=== PATIENT | male | born 1970 | race Caucasian/White ===

== ENCOUNTER 2018-11-17 16:35 | Inpatient (IN) | payer OTHER ==
[2018-11-17 19:55] VITALS: BMI 24.3
--- NOTE | 2018-11-17 20:19 | HP ---
CIWA Score Nausea/Vomitin-No Nausea/No Vomiting Muscle Tremors: 1-None Visible, but [place] Anxiety: 4-Mod. Anxious/Guarded Agitation: 4-Moderately Restless Paroxysmal Sweats: 4-Forehead w/Sweat Beads Orientation: 0-Oriented Tacttile Disturbances: 0-None Auditory Disturbances: 0-None Visual Disturbances: 2-Mild Sensitivity Headache: 2-Mild CIWA-Ar Total Score: 17 - Admission Criteria OASAS Guidelines: Admission for Medically Managed Detox: Requires at least one of the followin. CIWA greater than 12 2. Seizures within the past 24 hours 3. Delirium tremens within the past 24 hours 4. Hallucinations within the past 24 hours 5. Acute intervention needed for co occurring medical disorder 6. Acute intervention needed for co occurring psychiatric disorder 7. Severe withdrawal that cannot be handled at a lower level of care (continued vomiting, continued diarrhea, abnormal vital signs) requiring intravenous medication and/or fluids 8. Patient presents the following: CIWA greater than 12 Admission Criteria Met: Admission criteria met Admission ROS [facility] Chief Complaint: C/O WITHDRAWAL SX'S Allergies/Adverse Reactions: Allergies Allergy/AdvReac Type Severity Reaction Status Date / Time No Known Allergies Allergy Verified 11/17/18 20:14 History of Present Illness: 48 Y.O. MALE WITH ALCOHOLISM HERE FOR DETOX. HE PRESENTS WITH C/O WITHDRAWAL SX' S. CIWA 17. THIS IS HIS FIRST ADMISSION HERE. KNOWN TO PREVIOUS DETOX. STATES LAST ATTEMT WAS 2 WEEKS AGO BUT AMA AFTER 2 DAYS. DRINKS ALCOHOL DAILY. LAST USE TODAY. DENIES HX/O SEIZURES, BLACKOUTS. DOMICILED, UNEMPLOYED, DENIES LEGALS Exam Limitations: No Limitations - Ebola screening Have you traveled outside of the country in the last 21 days: No (N) Have you had contact with anyone from an Ebola affected area: No Do you have a fever: No - Review of Systems Constitutional: Chills, Loss of Appetite, Malaise, Night Sweats, Unintentional Wgt. Loss EENT: reports: Dental Problems (MISSING TEETH) Respiratory: reports: No Symptoms reported Cardiac: reports: No Symptoms Reported GI: reports: Poor Appetite, Poor Fluid Intake : reports: Other (HESITANCY) Musculoskeletal: reports: Back Pain, Joint Pain, Neck Pain Integumentary: reports: Other (SUPERFICIAL LACERATIONS TO HAND FROM USING RAZOR BLADES) Neuro: reports: Headache, Tremors Endocrine: reports: No Symptoms Reported Hematology: reports: No Symptoms Reported Psychiatric: reports: Orientated x3, Agitated, Anxious Other Systems: Reviewed and Negative Patient History - Patient Medical History Hx Anemia: No Hx Asthma: No Hx Chronic Obstructive Pulmonary Disease (COPD): No Hx Cancer: No Hx Cardiac Disorders: No Hx Congestive Heart Failure: No Hx Hypertension: Yes Hx Hypercholesterolemia: Yes Hx Pacemaker: No HX Cerebrovascular Accident: No Hx Seizures: No Hx Dementia: No Hx Diabetes: No Hx Gastrointestinal Disorders: No Hx Liver Disease: No Hx Genitourinary Disorders: No Hx Sexually Transmitted Disorders: No Hx Renal Disease (ESRD): No Hx Thyroid Disease: No Hx Human Immunodeficiency Virus (HIV): No Hx Hepatitis C: No Hx Depression: No Hx Suicide Attempt: No Hx Bipolar Disorder: No Hx Schizophrenia: No Other Medical History: DENIES - Patient Surgical History Past Surgical History: No - PPD History Previous Implant?: Yes Documented Results: Negative w/o proof Implanted On Prior [facility] Admission?: No PPD to be Administered?: Yes - Smoking Cessation Smoking history: Current every day smoker Have you smoked in the past 12 months: Yes Aproximately how many cigarettes per day: 20 Cigars Per Day: 0 Hx Chewing Tobacco Use: No Initiated information on smoking cessation: Yes 'Breaking Loose' booklet given: 11/17/18 - Substance & Tx. History Hx Alcohol Use: Yes Hx Substance Use: Yes Substance Use Type: Alcohol, Cocaine, Marijuana Hx Substance Use Treatment: Yes ([facility]) - Substances abused Alcohol Substance route: Oral Frequency: Daily Amount used: 1-2 PINT VODKA Age of first use: 33 Date of last use: 11/17/18 Cocaine Other (specify): SNIFF Frequency: 1-3 times last 30 days Amount used: $1000 Age of first use: 36 Date of last use: 11/16/18 Marijuana/Hashish Substance route: Smoking Frequency: Daily Amount used: 1 BLUNT Age of first use: 10 Date of last use: 11/16/18 Family Disease History - Family Disease History Family Disease History: CA: Mother (LUKEMIA- ), Other: Father ( MVA ) Admission Physical Exam BHS - Vital Signs Vital Signs: Vital Signs - 24 hr 11/17/18 11/17/18 19:46 20:09 Temperature 97.1 F L 97.1 F L Pulse Rate 73 73 Respiratory 18 18 Rate Blood Pressure 112/76 112/76 - Physical General Appearance: Yes: Mild Distress, Alcohol on Breath, Tremorous (FELT), Irritable, Anxious HEENTM: Yes: EOMI, Normocephalic, Normal Voice, RIGO, Pharynx Normal Respiratory: Yes: Chest Non-Tender, Lungs Clear, Normal Breath Sounds, No Respiratory Distress, No Accessory Muscle Use Neck: Yes: No masses,lesions,Nodules, Supple, Trachea in good position Breast: Yes: Breast Exam Deferred Cardiology: Yes: Regular Rhythm, Regular Rate, S1, S2 Abdominal: Yes: Non Tender, Flat, Increased Bowel Sounds Genitourinary: Yes: Within Normal Limits Back: Yes: Normal Inspection Musculoskeletal: Yes: full range of Motion, Gait Steady Extremities: Yes: Normal Capillary Refill, Normal Range of Motion, Non-Tender, Tremors (FELT) Neurological: Yes: Fully Oriented, Alert, Motor Strength 5/5, Depressed Affect ( DENIES SI/HI) Integumentary: Yes: Dry, Warm, Rash (TO BOTH ANTECUBITAL), Other (FLUSHED) Lymphatic: Yes: Within Normal Limits - Diagnostic (1) Alcohol dependence with uncomplicated withdrawal Current Visit: Yes Status: Acute (2) Cannabis abuse, uncomplicated Current Visit: Yes Status: Acute (3) Cocaine dependence, uncomplicated Current Visit: Yes Status: Acute (4) HTN (hypertension) Current Visit: Yes Status: Chronic Qualifiers: Hypertension type: essential hypertension Qualified Code(s): I10 - Essential (primary) hypertension (5) HLD (hyperlipidemia) Current Visit: Yes Status: Chronic Qualifiers: Hyperlipidemia type: unspecified Qualified Code(s): E78.5 - Hyperlipidemia , unspecified (6) At risk for dehydration due to poor fluid intake Current Visit: Yes Status: Acute (7) Substance induced mood disorder Current Visit: Yes Status: Acute Cleared for Admission S - Detox or Rehab [facility] Level of Care: Medically Managed Detox Regimen/Protocol: Librium Claeared for Rehab Admission: No Breathalyzer - Breathalyzer Breathalyzer: 0.005 Urine Drug Screen - Test Device Lot number: [id number] Expiration date: 07/18/20 - Control Is test valid?: Yes - Results Drug screen NEGATIVE: No Urine drug screen results: THC-Marijuana, HEIDY-Cocaine, MET-Methamphetamine, AMP- Amphetamines, BAR-Barbiturates, BZO-Benzodiazepines Inpatient Rehab Admission - Rehab Decision to Admit Inpatient rehab admission?: No
[2018-11-17] MEDS ORDERED: MAG HYDROX/AL HYDROX/SIMETH 30 ML UNIT-DOSE CUP PO PRN (20:39)
[2018-11-17] MEDS ORDERED: P-EPHED 60MG/TRIPROLIDI 2.5MG TABLET PO PRN (20:39)
[2018-11-17] MEDS ORDERED: BISMUTH SUBSALICYLATE 524 MG/30 ML UD PO PRN (20:39)
[2018-11-17] MEDS ORDERED: METHOCARBAMOL 500 MG TABLET PO PRN (20:39)
[2018-11-17] MEDS ORDERED: IBUPROFEN 400 MG TABLET (FP) PO PRN (20:39)
[2018-11-17] MEDS ORDERED: MELATONIN 5 MG TABLETS PO PRN (20:39)
[2018-11-17] MEDS ORDERED: ACETAMINOPHEN 325 MG TABLET (FP) PO PRN ×2 (20:39)
[2018-11-17] MEDS ORDERED: chlordiazePOXIDE HCL 25 MG CAPSULE PO PRN (20:39)
[2018-11-17] MEDS ORDERED: hydrOXYzine PAMOATE 25 MG CAPSULE (FP) PO PRN (20:39)
[2018-11-17] MEDS ORDERED: MENTHOL/PHENOL 1 EACH UD MM PRN (20:39)
[2018-11-17] MEDS ORDERED: MAGNESIUM CITRATE 300 ML BOTTLE PO PRN (20:39)
[2018-11-17] MEDS ORDERED: ONDANSETRON *ODT* 4 MG TABLET SL PRN (20:39)
[2018-11-17] MEDS ORDERED: DICYCLOMINE HCL 10 MG CAPSULE PO PRN (20:39)
[2018-11-17] MEDS ORDERED: guaiFENesin 200 MG/10 ML 10 ML UNIT-DOSE CUPS PO PRN (20:39)
[2018-11-17] MEDS ORDERED: MAGNESIUM HYDROX 2400MG/30ML ORAL SUSPENSION 30 ML CUP PO PRN (20:39)
[2018-11-17] MEDS ORDERED: NICOTINE POLACRILEX 4 MG GUM BUC PRN (20:39)
[2018-11-17] MEDS: chlordiazePOXIDE HCL 25 MG CAPSULE PO SCH (23:28)
[2018-11-17] MEDS: THIAMINE HCL 100 MG TABLET (FP) PO SCH (23:28)
[2018-11-18] MEDS: chlordiazePOXIDE HCL 25 MG CAPSULE PO SCH ×4 (05:38→22:31)
[2018-11-18] MEDS: PRENATAL VITAMINS W/ FOLIC ACID TABLET (FP) PO SCH (10:17)
[2018-11-18 10:28] LABS: HEMATOCRIT 38.9 % (35.4-49); HEMOGLOBIN 12.9 GM/dL (11.7-16.9); MCH 29.5 pg (25.7-33.7); MCHC 33.3 g/dl (32.0-35.9); MEAN CELL VOLUME 88.7 fl (80-96); PLATELET COUNT 260 K/MM3 (134-434); RBC 4.38 M/mm3 (4.00-5.60); RDW 15.1 % (11.9-15.9); WHITE BLOOD COUNT 6.5 K/mm3 (4.0-10.0)
[2018-11-18 10:59] LABS: ALBUMIN 2.8 g/dl (3.4-5.0); BILIRUBIN,TOTAL 0.9 mg/dL (0.2-1); BLOOD UREA NITROGEN 16.4 mg/dL (7-18); CALCIUM 8.2 mg/dL (8.5-10.1); CREATININE 0.8 mg/dL (0.55-1.3); POTASSIUM 4.2 mmol/L (3.5-5.1)
--- NOTE | 2018-11-18 15:52 | PN ---
S CIWA - CIWA Score Nausea/Vomitin-No Nausea/No Vomiting Muscle Tremors: 3 Anxiety: 2 Agitation: 1-Slight > Activity Paroxysmal Sweats: 3 Orientation: 0-Oriented Tacttile Disturbances: 0-None Auditory Disturbances: 0-None Visual Disturbances: 0-None Headache: 2-Mild CIWA-Ar Total Score: 11 BHS Progress Note (SOAP) Subjective: Tremors, Sweating, Headache. Objective: PATIENT A & O X 3, OBSERVED AMBULATING ON UNIT UNASSISTED. IN NO ACUTE DISTRESS. 11/18/18 15:50 Vital Signs Temperature 97.2 F L 11/18/18 13:27 Pulse Rate 63 11/18/18 13:27 Respiratory Rate 18 11/18/18 13:27 Blood Pressure 126/80 11/18/18 13:27 O2 Sat by Pulse Oximetry (%) Laboratory Tests 11/18/18 11/18/18 11/18/18 07:00 07:00 07:00 WBC 6.5 RBC 4.38 Hgb 12.9 Hct 38.9 MCV 88.7 MCH 29.5 MCHC 33.3 RDW 15.1 Plt Count 260 MPV 8.0 Sodium 139 Potassium 4.2 Chloride 108 H Carbon Dioxide 27 Anion Gap 4 L BUN 16.4 Creatinine 0.8 Est GFR (CKD-EPI)AfAm 120.72 Est GFR (CKD-EPI)NonAf 104.16 Random Glucose 77 Calcium 8.2 L Total Bilirubin 0.9 AST 27 ALT 25 Alkaline Phosphatase 67 Total Protein 6.0 L Albumin 2.8 L RPR Titer Nonreactive LABS NOTED. RESULT OF TB / QFT TEST PENDING. 11/18/18 15:51 Assessment: 11/18/18 15:50 WITHDRAWAL SYMPTOMS. Plan: CONTINUE DETOX.
--- NOTE | 2018-11-18 18:27 | PN ---
BHS Progress Note Note: pt requesting tinactin cream for itchy feet- ordered
--- NOTE | 2018-11-18 18:41 | CONSULT ---
[facility] Psychiatric Consult - Data Date of interview: 11/18/18 Admission source: [facility] Identifying data: Approached patient at bedside for psychiatric interview. Mr Vigil is found asleep. Resting comfortably. Examination deferred. Staff is made aware.
[2018-11-18] MEDS: THIAMINE HCL 100 MG TABLET (FP) PO SCH (22:31)
[2018-11-18] MEDS: TOLNAFTATE 1% CREAM 15 GM TUBE TP SCH (22:31)
[2018-11-19] MEDS: chlordiazePOXIDE HCL 25 MG CAPSULE PO SCH ×3 (05:44→17:14)
[2018-11-19] MEDS ORDERED: HYDROCORTISONE 0.5% TOPICAL OINTMENT TUBE TP SCH (10:00)
--- NOTE | 2018-11-19 10:04 | PN ---
[facility] CIWA - CIWA Score Nausea/Vomitin Muscle Tremors: 2 Anxiety: 2 Agitation: 2 Paroxysmal Sweats: No Perspiration Orientation: 0-Oriented Tacttile Disturbances: 0-None Auditory Disturbances: 0-None Visual Disturbances: 0-None Headache: 2-Mild CIWA-Ar Total Score: 10 BHS Progress Note (SOAP) Subjective: alert,irritable,anxious,interrupted sleep,tremor,rash of right face Objective: 11/19/18 10:03 Vital Signs Temperature 98.5 F 11/19/18 09:16 Pulse Rate 74 11/19/18 09:16 Respiratory Rate 20 11/19/18 09:16 Blood Pressure 116/82 11/19/18 09:16 O2 Sat by Pulse Oximetry (%) Assessment: 11/19/18 10:03 withdrawal symptom Plan: continue detox
[2018-11-19] MEDS: PRENATAL VITAMINS W/ FOLIC ACID TABLET (FP) PO SCH (10:21)
[2018-11-19] MEDS: TOLNAFTATE 1% CREAM 15 GM TUBE TP SCH (10:22)
[2018-11-19] MEDS ORDERED: HYDROCORTISONE 0.5% TOPICAL CREAM 30 GM TUBE TP SCH (12:30)
--- NOTE | 2018-11-19 13:48 | EKG ---
Test Reason : Blood Pressure : / mmHG Vent. Rate : 068 BPM Atrial Rate : 068 BPM P-R Int : 132 ms QRS Dur : 092 ms QT Int : 420 ms P-R-T Axes : 053 045 040 degrees QTc Int : 446 ms SINUS RHYTHM WITH BLOCKED PREMATURE ATRIAL COMPLEXES OTHERWISE NORMAL ECG NO PREVIOUS ECGS AVAILABLE Confirmed by MD ALBERTINA, SKIP ([id number]) on 11/19/2018 1:47:45 PM Referred By: Confirmed By:SKIP ENG MD
[2018-11-19 15:30] LABS: EPI CELLS 0.6 /HPF (0-5/HPF); HYALINE CASTS 1 /lpf (0-8); PH,URINE 5.5 (5.0-8.0); URINE APPEARANCE CLEAR; URINE BACTERIA 2.2 /hpf (NEGATIVE); URINE BILIRUBIN NEGATIVE (NEGATIVE); URINE COLOR YELLOW; URINE GLUCOSE (UA) NEGATIVE (NEGATIVE); URINE KETONE NEGATIVE (NEGATIVE); URINE LEUK ESTERASE TRACE (NEGATIVE); URINE NITRITE NEGATIVE (NEGATIVE); URINE PROTEIN NEGATIVE (NEGATIVE); URINE RBC 1 /hpf (0-4); URINE UROBILINOGEN 0.2 mg/dL (0.2-1.0); URINE WBC 3 /hpf (0-5)
[2018-11-19 17:19] VITALS: BP 110/65; PULSE 59; TEMP 96.9
[2018-11-19] MEDS ORDERED: chlordiazePOXIDE HCL 10 MG CAPSULE PO SCH (23:00)
[2018-11-19] MEDS ORDERED: chlordiazePOXIDE HCL 10 MG CAPSULE PO PRN (23:00)
[2018-11-20] MEDS ORDERED: chlordiazePOXIDE HCL 10 MG CAPSULE PO SCH (23:00)
== END 2018-11-19 20:15 | disposition home or self-care (01) | DRG 774 ==
LOC: YASAS 16:35 → Y3N 19:59
PROVIDERS: ADMIT Surgery; ATTEND Surgery
PROC: HZ2ZZZZ Detoxification Services for Substance Abuse Treatment (ICD-10-PCS; principal; 2018-11-17)
DX: F10.230 Alcohol dependence with withdrawal, uncomplicated (principal); F14.20 Cocaine dependence, uncomplicated; F12.20 Cannabis dependence, uncomplicated; F19.24 Other psychoactive substance dependence with psychoactive substance-induced mood disorder; I10 Essential (primary) hypertension; E78.00 Pure hypercholesterolemia, unspecified; Z91.89 Other specified personal risk factors, not elsewhere classified
CPT/HCPCS: 36415; 80053; 81003; 85027; 86480; 86593; 93005; 93010

== ENCOUNTER 2019-04-11 21:45 | Inpatient (IN) | payer OTHER ==
[2019-04-11 21:48] VITALS: BMI 24.6
--- NOTE | 2019-04-12 00:25 | HP ---
CIWA Score Nausea/Vomitin-No Nausea/No Vomiting Muscle Tremors: 1-None Visible, but [place] Anxiety: 3 Agitation: 3 Paroxysmal Sweats: 3 Orientation: 1-Uncertain about Date Tacttile Disturbances: 3-Moderate Itch/Numb/Burn Auditory Disturbances: 0-None Visual Disturbances: 0-None Headache: 3-Moderate CIWA-Ar Total Score: 17 - Admission Criteria OASAS Guidelines: Admission for Medically Managed Detox: Requires at least one of the followin. CIWA greater than 12 2. Seizures within the past 24 hours 3. Delirium tremens within the past 24 hours 4. Hallucinations within the past 24 hours 5. Acute intervention needed for co occurring medical disorder 6. Acute intervention needed for co occurring psychiatric disorder 7. Severe withdrawal that cannot be handled at a lower level of care (continued vomiting, continued diarrhea, abnormal vital signs) requiring intravenous medication and/or fluids 8. Patient presents the following: CIWA greater than 12 Admission Criteria Met: Admission criteria met Admitting History and Physical - Smoking History Smoking history: Current every day smoker Have you smoked in the past 12 months: Yes Aproximately how many cigarettes per day: 20 - Alcohol/Substance Use Hx Alcohol Use: Yes Admission ROS [facility] - [facility] Chief Complaint: seeking detox from etoh Allergies/Adverse Reactions: Allergies Allergy/AdvReac Type Severity Reaction Status Date / Time No Known Allergies Allergy Verified 04/11/19 21:41 History of Present Illness: HERE FOR DETOX SELF REFERRED KNOWN TO PROGRAM LAST HERE 11/2018 REPORTS IMMEDIATE RELAPSE AFTER DC DRUG OF CHOICE ETOH/ THC/HEIDY REPORTS DAILY ETOH INTAKE. 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 DENIES ANY THIS PAST YEAR LIVES WITH FAMILY, EMPLOYED, DENIES LEGALS Exam Limitations: No Limitations - Ebola screening Have you traveled outside of the country in the last 21 days: No Have you had contact with anyone from an Ebola affected area: No Do you have a fever: No - Review of Systems Constitutional: Chills, Loss of Appetite, Night Sweats, Changes in sleep, Unintentional Wgt. Loss EENT: reports: Dental Problems (MISSING TEETH) Respiratory: reports: No Symptoms reported Cardiac: reports: No Symptoms Reported GI: reports: No Symptoms Reported : reports: No Symptoms Reported Musculoskeletal: reports: No Symptoms Reported Integumentary: reports: [place] Neuro: reports: Headache, Tremors Endocrine: reports: No Symptoms Reported Hematology: reports: No Symptoms Reported Psychiatric: reports: Judgement Intact, Orientated x3, Agitated (IRRITABLE), Anxious Other Systems: Reviewed and Negative Patient History - Patient Medical History Hx Anemia: No Hx Asthma: No Hx Chronic Obstructive Pulmonary Disease (COPD): No Hx Cancer: No Hx Cardiac Disorders: No Hx Congestive Heart Failure: No Hx Hypertension: Yes Hx Hypercholesterolemia: Yes Hx Pacemaker: No HX Cerebrovascular Accident: No Hx Seizures: No Hx Dementia: No Hx Diabetes: No Hx Gastrointestinal Disorders: No Hx Liver Disease: No Hx Genitourinary Disorders: No Hx Sexually Transmitted Disorders: No Hx Renal Disease (ESRD): No Hx Thyroid Disease: No Hx Human Immunodeficiency Virus (HIV): No Hx Hepatitis C: No Hx Depression: No Hx Suicide Attempt: No Hx Bipolar Disorder: No Hx Schizophrenia: No Other Medical History: DENIES - Patient Surgical History Past Surgical History: No - PPD History Previous Implant?: Yes Documented Results: Negative w/o proof Implanted On Prior R Admission?: No Date: 11/18/18 Results: NEG TB GOLD PPD to be Administered?: No - Smoking Cessation Smoking history: Current every day smoker Have you smoked in the past 12 months: Yes Aproximately how many cigarettes per day: 20 Cigars Per Day: 0 Hx Chewing Tobacco Use: No Initiated information on smoking cessation: Yes 'Breaking Loose' booklet given: 04/12/19 - Substance & Tx. History Hx Alcohol Use: Yes Hx Substance Use: Yes Substance Use Type: Alcohol, Cocaine, Marijuana Hx Substance Use Treatment: Yes ([facility]) - Substances abused Alcohol Substance route: Oral Frequency: Daily Amount used: 1-2 PINT VODKA Age of first use: 33 Date of last use: 04/10/19 Cocaine Other (specify): SNIFF Substance route: Inhalation Frequency: 1-3 times last 30 days Amount used: 1gram Age of first use: 36 Date of last use: 04/04/19 Marijuana/Hashish Substance route: Smoking Frequency: Daily Amount used: 1 BLUNT Age of first use: 10 Date of last use: 04/09/19 Admission Physical Exam BHS - Vital Signs Vital Signs: Vital Signs - 24 hr 04/11/19 04/11/19 21:44 23:42 Temperature 96.8 F L 96.8 F L Pulse Rate 84 84 Respiratory 16 16 Rate Blood Pressure 144/89 144/89 - Physical General Appearance: Yes: Mild Distress, Tremorous (FELT), Irritable, Anxious HEENTM: Yes: EOMI, Normocephalic, Normal Voice, RIGO, Pharynx Normal Respiratory: Yes: Chest Non-Tender, Lungs Clear, Normal Breath Sounds, No Respiratory Distress, No Accessory Muscle Use Neck: Yes: No masses,lesions,Nodules, Supple, Trachea in good position Breast: Yes: Breasts Symetrical Cardiology: Yes: Regular Rhythm, Regular Rate, S1, S2 Abdominal: Yes: Normal Bowel Sounds, Non Tender, Soft Genitourinary: Yes: Within Normal Limits (NO C/O) Back: Yes: Normal Inspection Musculoskeletal: Yes: full range of Motion, Gait Steady Extremities: Yes: Normal Capillary Refill, Normal Inspection, Non-Tender, Tremors (FELT) Neurological: Yes: Fully Oriented, Alert, Motor Strength 5/5 Integumentary: Yes: Dry, Warm Lymphatic: Yes: Within Normal Limits - Diagnostic (1) Alcohol dependence with uncomplicated withdrawal Current Visit: Yes Status: Acute (2) At risk for dehydration due to poor fluid intake Current Visit: Yes Status: Acute (3) Cannabis abuse, uncomplicated Current Visit: Yes Status: Acute (4) Cocaine dependence, uncomplicated Current Visit: Yes Status: Acute (5) Substance induced mood disorder Current Visit: No Status: Acute (6) HLD (hyperlipidemia) Current Visit: Yes Status: Chronic Qualifiers: Hyperlipidemia type: unspecified Qualified Code(s): E78.5 - Hyperlipidemia , unspecified (7) HTN (hypertension) Current Visit: Yes Status: Chronic Qualifiers: Hypertension type: essential hypertension Qualified Code(s): I10 - Essential (primary) hypertension Cleared for Admission S - Detox or Rehab [facility] Level of Care: Medically Managed (ATIVAN PROTOCOL) Claeared for Rehab Admission: No Breathalyzer - Breathalyzer Breathalyzer: 0 Urine Drug Screen - Test Device Lot number: [id number] Expiration date: 12/18/20 - Control Is test valid?: Yes - Results Drug screen NEGATIVE: No Urine drug screen results: THC-Marijuana, HEIDY-Cocaine, MET-Methamphetamine Inpatient Rehab Admission - Rehab Decision to Admit Inpatient rehab admission?: No
[2019-04-12] MEDS ORDERED: NICOTINE POLACRILEX 2 MG GUM BUC PRN (00:28)
[2019-04-12] MEDS ORDERED: DICYCLOMINE HCL 10 MG CAPSULE PO PRN (00:28)
[2019-04-12] MEDS ORDERED: ONDANSETRON *ODT* 4 MG TABLET SL PRN (00:28)
[2019-04-12] MEDS ORDERED: ACETAMINOPHEN 325 MG TABLET (FP) PO PRN ×2 (00:28)
[2019-04-12] MEDS ORDERED: P-EPHED 60MG/TRIPROLIDI 2.5MG TABLET PO PRN (00:28)
[2019-04-12] MEDS ORDERED: MENTHOL/PHENOL 1 EACH UD MM PRN (00:28)
[2019-04-12] MEDS ORDERED: MELATONIN 5 MG TABLETS PO PRN (00:28)
[2019-04-12] MEDS ORDERED: MAGNESIUM CITRATE 300 ML BOTTLE PO PRN (00:28)
[2019-04-12] MEDS ORDERED: IBUPROFEN 400 MG TABLET (FP) PO PRN (00:28)
[2019-04-12] MEDS ORDERED: METHOCARBAMOL 500 MG TABLET PO PRN (00:28)
[2019-04-12] MEDS ORDERED: MAGNESIUM HYDROX 2400MG/30ML ORAL SUSPENSION 30 ML CUP PO PRN (00:28)
[2019-04-12] MEDS ORDERED: LORazepam 1 MG TABLET PO PRN (00:28)
[2019-04-12] MEDS ORDERED: MAG HYDROX/AL HYDROX/SIMETH 30 ML UNIT-DOSE CUP PO PRN (00:28)
[2019-04-12] MEDS ORDERED: guaiFENesin 200 MG/10 ML 10 ML UNIT-DOSE CUPS PO PRN (00:28)
[2019-04-12] MEDS ORDERED: BACLOFEN 10 MG TABLET (FP) PO PRN (00:28)
[2019-04-12] MEDS ORDERED: BISMUTH SUBSALICYLATE 524 MG/30 ML UD PO PRN (00:28)
[2019-04-12] MEDS ORDERED: hydrOXYzine PAMOATE 25 MG CAPSULE (FP) PO PRN (00:28)
[2019-04-12] MEDS ORDERED: cloNIDine HCL 0.1 MG TABLET PO PRN (00:30)
[2019-04-12] MEDS: LORazepam 2 MG TABLET PO SCH ×4 (05:52→22:05)
[2019-04-12] MEDS: PRENATAL VITAMINS W/ FOLIC ACID TABLET (FP) PO SCH (10:25)
[2019-04-12] MEDS: NICOTINE 21 MG/24 HOURS TOPICAL PATCH TD SCH (10:25)
[2019-04-12 10:56] LABS: ALBUMIN 3.4 g/dl (3.4-5.0); BILIRUBIN,TOTAL 0.4 mg/dL (0.2-1); CALCIUM 8.5 mg/dL (8.5-10.1); CREATININE 0.9 mg/dL (0.55-1.3); TOT PROT 6.8 g/dl (6.4-8.2)
[2019-04-12 11:19] LABS: HEMATOCRIT 41.6 % (35.4-49); HEMOGLOBIN 14.3 GM/dL (11.7-16.9); MCH 31.2 pg (25.7-33.7); MCHC 34.3 g/dl (32.0-35.9); MEAN CELL VOLUME 90.8 fl (80-96); MEAN PLT VOLUME 8.3 fl (7.5-11.1); PLATELET COUNT 223 K/MM3 (134-434); RBC 4.58 M/mm3 (4.00-5.60); RDW 15.6 % (11.9-15.9); WHITE BLOOD COUNT 9.2 K/mm3 (4.0-10.0)
[2019-04-12] MEDS: THIAMINE HCL 100 MG TABLET (FP) PO SCH (22:05)
[2019-04-13] MEDS: LORazepam 1 MG TABLET PO SCH ×4 (05:22→23:42)
--- NOTE | 2019-04-13 09:24 | PN ---
S CIWA - CIWA Score Nausea/Vomitin-Mild Nausea/No Vomiting Muscle Tremors: 4-Moderate,w/Arms Extend Anxiety: 3 Agitation: 2 Paroxysmal Sweats: 2 Orientation: 0-Oriented Tacttile Disturbances: 1-Very Mild Itch/Numbness Auditory Disturbances: 0-None Visual Disturbances: 0-None Headache: 1-Very Mild CIWA-Ar Total Score: 14 BHS Progress Note (SOAP) Subjective: 48 YEARS OLD MALE ADMITTED ON 04/12/19 FOR ALCOHOL WITHDRAWAL SX MANAGEMENT TREATED WITH ATIVAN DETOX REGIMEN ATE BREAKFAST RESTING ON BED FEELING TIRED LIMITED CONVERSATION WITH STAFF Objective: 04/13/19 09:22 Vital Signs Temperature 97 F L 04/13/19 06:13 Pulse Rate 67 04/13/19 06:13 Respiratory Rate 18 04/13/19 06:13 Blood Pressure 117/71 04/13/19 06:13 O2 Sat by Pulse Oximetry (%) Laboratory Last Values WBC 9.2 K/mm3 (4.0-10.0) 04/12/19 07:40 RBC 4.58 M/mm3 (4.00-5.60) 04/12/19 07:40 Hgb 14.3 GM/dL (11.7-16.9) 04/12/19 07:40 Hct 41.6 % (35.4-49) 04/12/19 07:40 MCV 90.8 fl (80-96) 04/12/19 07:40 MCH 31.2 pg (25.7-33.7) 04/12/19 07:40 MCHC 34.3 g/dl (32.0-35.9) 04/12/19 07:40 RDW 15.6 % (11.9-15.9) 04/12/19 07:40 Plt Count 223 K/MM3 (134-434) 04/12/19 07:40 MPV 8.3 fl (7.5-11.1) 04/12/19 07:40 Sodium 138 mmol/L (136-145) 04/12/19 07:40 Potassium 4.0 mmol/L (3.5-5.1) 04/12/19 07:40 Chloride 103 mmol/L (98-107) 04/12/19 07:40 Carbon Dioxide 30 mmol/L (21-32) 04/12/19 07:40 Anion Gap 4 MMOL/L (8-16) L 04/12/19 07:40 BUN 25.0 mg/dL (7-18) H 04/12/19 07:40 Creatinine 0.9 mg/dL (0.55-1.3) 04/12/19 07:40 Est GFR (CKD-EPI)AfAm 115.02 04/12/19 07:40 Est GFR (CKD-EPI)NonAf 99.24 04/12/19 07:40 Random Glucose 66 mg/dL (74-106) L 04/12/19 07:40 Calcium 8.5 mg/dL (8.5-10.1) 04/12/19 07:40 Total Bilirubin 0.4 mg/dL (0.2-1) 04/12/19 07:40 AST 25 U/L (15-37) 04/12/19 07:40 ALT 29 U/L (13-61) 04/12/19 07:40 Alkaline Phosphatase 68 U/L (45-117) 04/12/19 07:40 Total Protein 6.8 g/dl (6.4-8.2) 04/12/19 07:40 Albumin 3.4 g/dl (3.4-5.0) 04/12/19 07:40 RPR Titer Nonreactive (NONREACTIVE) 04/12/19 07:40 LAB NOTED Assessment: 04/13/19 09:23 ALCOHOL WITHDRAWAL SX Plan: CONTINUE ATIVAN DETOX REGIMEN
[2019-04-13] MEDS: PRENATAL VITAMINS W/ FOLIC ACID TABLET (FP) PO SCH (10:21)
[2019-04-13] MEDS: NICOTINE 21 MG/24 HOURS TOPICAL PATCH TD SCH (10:22)
[2019-04-13] MEDS: THIAMINE HCL 100 MG TABLET (FP) PO SCH (21:52)
[2019-04-14] MEDS ORDERED: LORazepam 0.5 MG TABLET PO PRN
[2019-04-14] MEDS: LORazepam 0.5 MG TABLET PO SCH ×4 (05:29→22:03)
--- NOTE | 2019-04-14 09:34 | PN ---
[facility] CIWA - CIWA Score Nausea/Vomitin-Mild Nausea/No Vomiting Muscle Tremors: 2 Anxiety: 2 Agitation: 2 Paroxysmal Sweats: 1-Minimal Palms Moist Orientation: 0-Oriented Tacttile Disturbances: 0-None Auditory Disturbances: 0-None Visual Disturbances: 0-None Headache: 1-Very Mild CIWA-Ar Total Score: 9 S Progress Note (SOAP) Subjective: 48 years old male admitted on 04/12/19 for alcohol withdrawal sx management treated with ativan detox regimen feeling better slept through the night encourage to attend groups and meeting discuss aftercare with staff Objective: 04/14/19 09:36 Vital Signs Temperature 97.4 F L 04/14/19 09:14 Pulse Rate 65 04/14/19 09:14 Respiratory Rate 16 04/14/19 09:14 Blood Pressure 102/56 L 04/14/19 09:14 O2 Sat by Pulse Oximetry (%) Laboratory Last Values WBC 9.2 K/mm3 (4.0-10.0) 04/12/19 07:40 RBC 4.58 M/mm3 (4.00-5.60) 04/12/19 07:40 Hgb 14.3 GM/dL (11.7-16.9) 04/12/19 07:40 Hct 41.6 % (35.4-49) 04/12/19 07:40 MCV 90.8 fl (80-96) 04/12/19 07:40 MCH 31.2 pg (25.7-33.7) 04/12/19 07:40 MCHC 34.3 g/dl (32.0-35.9) 04/12/19 07:40 RDW 15.6 % (11.9-15.9) 04/12/19 07:40 Plt Count 223 K/MM3 (134-434) 04/12/19 07:40 MPV 8.3 fl (7.5-11.1) 04/12/19 07:40 Sodium 138 mmol/L (136-145) 04/12/19 07:40 Potassium 4.0 mmol/L (3.5-5.1) 04/12/19 07:40 Chloride 103 mmol/L (98-107) 04/12/19 07:40 Carbon Dioxide 30 mmol/L (21-32) 04/12/19 07:40 Anion Gap 4 MMOL/L (8-16) L 04/12/19 07:40 BUN 25.0 mg/dL (7-18) H 04/12/19 07:40 Creatinine 0.9 mg/dL (0.55-1.3) 04/12/19 07:40 Est GFR (CKD-EPI)AfAm 115.02 04/12/19 07:40 Est GFR (CKD-EPI)NonAf 99.24 04/12/19 07:40 Random Glucose 66 mg/dL (74-106) L 04/12/19 07:40 Calcium 8.5 mg/dL (8.5-10.1) 04/12/19 07:40 Total Bilirubin 0.4 mg/dL (0.2-1) 04/12/19 07:40 AST 25 U/L (15-37) 04/12/19 07:40 ALT 29 U/L (13-61) 04/12/19 07:40 Alkaline Phosphatase 68 U/L (45-117) 04/12/19 07:40 Total Protein 6.8 g/dl (6.4-8.2) 04/12/19 07:40 Albumin 3.4 g/dl (3.4-5.0) 04/12/19 07:40 RPR Titer Nonreactive (NONREACTIVE) 04/12/19 07:40 lab noted Assessment: 04/14/19 09:36 alcohol withdrawal sx Plan: continue ativan detox regimen
[2019-04-14] MEDS: PRENATAL VITAMINS W/ FOLIC ACID TABLET (FP) PO SCH (10:12)
[2019-04-14] MEDS: NICOTINE 21 MG/24 HOURS TOPICAL PATCH TD SCH (10:12)
[2019-04-14 19:00] LABS: URINE APPEARANCE CLOUDY; URINE BILIRUBIN NEGATIVE (NEGATIVE); URINE COLOR YELLOW; URINE GLUCOSE (UA) NEGATIVE (NEGATIVE); URINE KETONE NEGATIVE (NEGATIVE); URINE LEUK ESTERASE NEGATIVE (NEGATIVE); URINE NITRITE NEGATIVE (NEGATIVE); URINE PROTEIN NEGATIVE (NEGATIVE); URINE UROBILINOGEN 0.2 mg/dL (0.2-1.0)
[2019-04-14] MEDS: THIAMINE HCL 100 MG TABLET (FP) PO SCH (22:03)
[2019-04-15] MEDS ORDERED: LORazepam 0.5 MG TABLET PO ONE (05:00)
[2019-04-15 06:09] VITALS: BP 113/74; PULSE 54; TEMP 96.6
--- NOTE | 2019-04-15 14:12 | DS ---
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 - Physical Exam Results Vital Signs: Vital Signs Temperature 96.6 F L 04/15/19 06:09 Pulse Rate 54 L 04/15/19 06:09 Respiratory Rate 18 04/15/19 06:09 Blood Pressure 113/74 04/15/19 06:09 O2 Sat by Pulse Oximetry (%) Pertinent Admission Physical Exam Findings: alcohol withdrawal sx Laboratory Last Values WBC 9.2 K/mm3 (4.0-10.0) 04/12/19 07:40 RBC 4.58 M/mm3 (4.00-5.60) 04/12/19 07:40 Hgb 14.3 GM/dL (11.7-16.9) 04/12/19 07:40 Hct 41.6 % (35.4-49) 04/12/19 07:40 MCV 90.8 fl (80-96) 04/12/19 07:40 MCH 31.2 pg (25.7-33.7) 04/12/19 07:40 MCHC 34.3 g/dl (32.0-35.9) 04/12/19 07:40 RDW 15.6 % (11.9-15.9) 04/12/19 07:40 Plt Count 223 K/MM3 (134-434) 04/12/19 07:40 MPV 8.3 fl (7.5-11.1) 04/12/19 07:40 Sodium 138 mmol/L (136-145) 04/12/19 07:40 Potassium 4.0 mmol/L (3.5-5.1) 04/12/19 07:40 Chloride 103 mmol/L (98-107) 04/12/19 07:40 Carbon Dioxide 30 mmol/L (21-32) 04/12/19 07:40 Anion Gap 4 MMOL/L (8-16) L 04/12/19 07:40 BUN 25.0 mg/dL (7-18) H 04/12/19 07:40 Creatinine 0.9 mg/dL (0.55-1.3) 04/12/19 07:40 Est GFR (CKD-EPI)AfAm 115.02 04/12/19 07:40 Est GFR (CKD-EPI)NonAf 99.24 04/12/19 07:40 Random Glucose 66 mg/dL (74-106) L 04/12/19 07:40 Calcium 8.5 mg/dL (8.5-10.1) 04/12/19 07:40 Total Bilirubin 0.4 mg/dL (0.2-1) 04/12/19 07:40 AST 25 U/L (15-37) 04/12/19 07:40 ALT 29 U/L (13-61) 04/12/19 07:40 Alkaline Phosphatase 68 U/L (45-117) 04/12/19 07:40 Total Protein 6.8 g/dl (6.4-8.2) 04/12/19 07:40 Albumin 3.4 g/dl (3.4-5.0) 04/12/19 07:40 Urine Color Yellow 04/14/19 15:18 Urine Appearance Cloudy 04/14/19 15:18 Urine pH 7.0 (5.0-8.0) D 04/14/19 15:18 Ur Specific [place] 1.020 (1.010-1.035) 04/14/19 15:18 Urine Protein Negative (NEGATIVE) 04/14/19 15:18 Urine Glucose (UA) Negative (NEGATIVE) 04/14/19 15:18 Urine Ketones Negative (NEGATIVE) 04/14/19 15:18 Urine Blood Negative (NEGATIVE) 04/14/19 15:18 Urine Nitrite Negative (NEGATIVE) 04/14/19 15:18 Urine Bilirubin Negative (NEGATIVE) 04/14/19 15:18 Urine Urobilinogen 0.2 mg/dL (0.2-1.0) 04/14/19 15:18 Ur Leukocyte Esterase Negative (NEGATIVE) 04/14/19 15:18 RPR Titer Nonreactive (NONREACTIVE) 04/12/19 07:40 lab noted - Treatment Hospital Course: Detox Protocol Followed, Detoxed Safely, Responded well, Discharged Condition Good (based on nursing report), Rehab Referral Accepted Patient has Accepted a Rehab Referral to: [facility] - Medication Discharge Medications: Ambulatory Orders NK [No Known Home Medication] 11/18/18 - Diagnosis (1) Alcohol dependence with uncomplicated withdrawal Status: Acute (2) Substance induced mood disorder Status: Suspected (3) HLD (hyperlipidemia) Status: Chronic Qualifiers: Hyperlipidemia type: unspecified Qualified Code(s): E78.5 - Hyperlipidemia , unspecified (4) HTN (hypertension) Status: Chronic Qualifiers: Hypertension type: essential hypertension Qualified Code(s): I10 - Essential (primary) hypertension - AMA Did Patient Leave Against Medical Advice: No
== END 2019-04-15 07:47 | disposition home or self-care (01) | DRG 774 ==
LOC: YASAS 21:45 → Y3N 04-12 00:37
PROVIDERS: ADMIT Allergy & Immunology; ATTEND Allergy & Immunology
PROC: HZ2ZZZZ Detoxification Services for Substance Abuse Treatment (ICD-10-PCS; principal; 2019-04-12)
DX: F10.230 Alcohol dependence with withdrawal, uncomplicated (principal); F14.20 Cocaine dependence, uncomplicated; F12.10 Cannabis abuse, uncomplicated; F17.210 Nicotine dependence, cigarettes, uncomplicated; F19.24 Other psychoactive substance dependence with psychoactive substance-induced mood disorder; I10 Essential (primary) hypertension; E78.5 Hyperlipidemia, unspecified; Z91.89 Other specified personal risk factors, not elsewhere classified
CPT/HCPCS: 36415; 80053; 81003; 85027; 86593

== ENCOUNTER 2019-11-24 14:34 | Inpatient (IN) | payer OTHER ==
--- NOTE | 2019-11-24 15:24 | BHS.RME ---
Substance Use & Tx History - Substance Use History Alcohol Substance amount: one beer Frequency of use: Once a month Substance route: Oral Date of Last Use: 11/24/19 (Began age 35 y. No Seizures, No blackout. 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 No OD. NO Narcan) Cocaine- Powder Substance amount: $20 Frequency of use: Less than 3 times per week Substance route: Inhalation (ex: sniffing or snorting) Date of Last Use: 10/24/19 (First use age 17 y) Methamphetamine Substance amount: one gram Frequency of use: Once a month Substance route: Inhalation (ex: sniffing or snorting), Smoking Date of Last Use: 11/23/19 (First use age 38 y) - Last Treatment Date of last treatment: 04/12/19 to 04/15/19, left early Treatment type: Substance Use Disorder (TITA) Physical/Psych/Mental Status - Behavior General Behavior: Decreased activity Eye Contact: Normal - Cooperativeness Cooperativeness: Cooperative - Thinking Thought Processes: Tight Thought content: Future oriented - Physical Health Problems Is patient presently having any pain?: Yes (chronic low back pain) Does patient presently have any injuries (include location): No Does patient currently have a fever: No COWS - Scale Resting Pulse: 0= [place] 80 or Below Sweatin= Chills/Flushing Restless Observation: 1= Difficult to Sit Still Pupil Size: 0= Normal to Room Light Bone or Joint Aches: 1= Mild Discomfort Runny Nose/ Eye Tearin= Runny Nose/Eyes GI Upset > 30mins: 0= None Tremor Observation: 0= None Yawning Observation: 0= None Anxiety or Irritability: 0= None Goose Flesh Skin: 0=Smooth Skin COWS Score: 5 CIWA Nausea/Vomitin-No Nausea/No Vomiting Muscle Tremors: None Anxiety: 0-No Anxiety, at Ease Agitation: 1-Slight > Activity Paroxysmal Sweats: 1-Minimal Palms Moist Orientation: 0-Oriented Tacttile Disturbances: 0-None Auditory Disturbances: 0-None Visual Disturbances: 0-None Headache: 0-None Present CIWA-Ar Total Score: 2
[2019-11-24 16:51] VITALS: BMI 25.0
--- NOTE | 2019-11-24 17:58 | HP ---
COWS - Scale Resting Pulse: 0= [place] 80 or Below Sweatin=Flushed/Facial Moisture Restless Observation: 1= Difficult to Sit Still Pupil Size: 2= Moderately Dilated (Pupils = 3 mm) Bone or Joint Aches: 1= Mild Discomfort Runny Nose/ Eye Tearin= Nasal Congestion GI Upset > 30mins: 2= Nausea/Diarrhea (Nausea w/o diarrhea) Tremor Observation: 1= Tremor [place], Not Seen Yawning Observation: 0= None Anxiety or Irritability: 2=Irritable/Anxious Goose Flesh Skin: 0=Smooth Skin COWS Score: 12 CIWA Score Nausea/Vomitin-Mild Nausea/No Vomiting Muscle Tremors: 1-None Visible, but [place] Anxiety: 1-Mildly Anxious Agitation: 1-Slight > Activity Paroxysmal Sweats: 3 Orientation: 0-Oriented Tacttile Disturbances: 0-None Auditory Disturbances: 0-None Visual Disturbances: 0-None Headache: 2-Mild CIWA-Ar Total Score: 9 - Admission Criteria OASAS Guidelines: Admission for Medically Managed Detox: Requires at least one of the followin. CIWA greater than 12 2. Seizures within the past 24 hours 3. Delirium tremens within the past 24 hours 4. Hallucinations within the past 24 hours 5. Acute intervention needed for co occurring medical disorder 6. Acute intervention needed for co occurring psychiatric disorder 7. Severe withdrawal that cannot be handled at a lower level of care (continued vomiting, continued diarrhea, abnormal vital signs) requiring intravenous medication and/or fluids 8. Admitting History and Physical - Smoking History Smoking history: Current every day smoker Have you smoked in the past 12 months: Yes Aproximately how many cigarettes per day: 20 - Alcohol/Substance Use Hx Alcohol Use: Yes Admission ROS [facility] Chief Complaint: Here to detox from heroin. Allergies/Adverse Reactions: Allergies Allergy/AdvReac Type Severity Reaction Status Date / Time No Known Allergies Allergy Verified 04/11/19 21:41 History of Present Illness: 49 yo presents w/ opioid withdrawal symptoms seeking detox NOLBERTO: 0.0 UTox: +FEN/THC/AMP/MOP/MET Denies seizures, blackouts, overdoes. Opioid use began at age 38's. Intermittent dibbing and dabbing. Currently use 2- 3 bags/day x last 2 weeks. Nasal. Denies overdose hx. Alcohol use - no drinking in a while. One beer today. Marijuana use began daily at age 15. Currently use $20 - 200/day. Methamphetamine use began at age 28's. Smokes and snorts 1 gm 2-3 x/month Nicotine use began at age 13. Smokes 1PPD. Declined nicotine patch despite enc ouragement. PMHx: HTN, HDL; Occ chest pain; MHHx: Denies S/ SHx: Care Home. Employed. Search Terms: Gorge Vigil, 1970 Search Date: 11/24/2019 18:03:28 PM The Drug Utilization Report below displays all of the controlled substance prescriptions, if any, that your patient has filled in the last twelve months. The information displayed on this report is compiled from pharmacy submissions to the Department, and accurately reflects the information as submitted by the pharmacies. This report was requested by: Olivia James | Reference #: [id number] There are no results for the search terms that you entered. Exam Limitations: No Limitations - Ebola screening Have you traveled outside of the country in the last 21 days: No (Denies COVID exposure) Have you had contact with anyone from an Ebola affected area: No Have you been sick,other than usual withdrawal symptoms: No Do you have a fever: No - Review of Systems Constitutional: Diaphoresis, Changes in sleep (Difficulty stayings asleep), Weight Stable EENT: reports: Blurred Vision (Occ see's black spots), Nose Congestion, Dental Problems Respiratory: reports: Shortness of Breath (r/t heat) Cardiac: reports: Other (Past chest pain) GI: reports: Nausea : reports: No Symptoms Reported Musculoskeletal: reports: Back Pain (Low back pain - worse in am inproves w/ movement. "3") Integumentary: reports: No Symptoms Reported Neuro: reports: Headache (Top of head - dull - "4-5") Endocrine: reports: Increased Thirst Hematology: reports: No Symptoms Reported Psychiatric: reports: Orientated x3, Agitated, Anxious Patient History - Patient Medical History Hx Anemia: No Hx Asthma: No Hx Chronic Obstructive Pulmonary Disease (COPD): No Hx Cancer: No Hx Cardiac Disorders: Yes Hx Congestive Heart Failure: No Hx Hypertension: No Hx Hypercholesterolemia: Yes Hx Pacemaker: No HX Cerebrovascular Accident: No Hx Seizures: No Hx Dementia: No Hx Diabetes: No Hx Gastrointestinal Disorders: No Hx Liver Disease: No Hx Genitourinary Disorders: No Hx Sexually Transmitted Disorders: No Hx Renal Disease (ESRD): No Hx Thyroid Disease: No Hx Human Immunodeficiency Virus (HIV): No Hx Hepatitis C: No Hx Depression: No Hx Suicide Attempt: No Hx Bipolar Disorder: No Hx Schizophrenia: No - Patient Surgical History Past Surgical History: No Hx Neurologic Surgery: No Hx Cataract Extraction: No Hx Cardiac Surgery: No Hx Lung Surgery: No Hx Breast Surgery: No Hx Breast Biopsy: No Hx Abdominal Surgery: No Hx Appendectomy: No Hx Cholecystectomy: No Hx Genitourinary Surgery: No Hx Section: No Hx Orthopedic Surgery: No Anesthesia Reaction: No - PPD History Date: 11/18/18 Results: NEG TB GOLD - Smoking Cessation Smoking history: Current every day smoker Have you smoked in the past 12 months: Yes Aproximately how many cigarettes per day: 20 Cigars Per Day: 0 Hx Chewing Tobacco Use: No Initiated information on smoking cessation: Yes 'Breaking Loose' booklet given: 11/24/19 - Substance & Tx. History Hx Alcohol Use: Yes Hx Substance Use: Yes Substance Use Type: Alcohol, Heroin, Marijuana, Opiates, Tranquilizers (methamphetamine) Hx Substance Use Treatment: Yes (detox, rehab) Admission Physical Exam BHS - Vital Signs Vital Signs: Vital Signs - 24 hr 11/24/19 16:48 Temperature 96.8 F L Pulse Rate 76 Respiratory 12 Rate Blood Pressure 126/84 - Physical General Appearance: Yes: Nourished, Mild Distress, Sweating, Anxious HEENTM: Yes: EOMI, Hearing grossly Normal, Normocephalic, Normal Voice, RIGO (Pupils = 3 mm), Pharynx Normal Respiratory: Yes: Lungs Clear, Normal Breath Sounds, No Respiratory Distress Neck: Yes: No masses,lesions,Nodules, Supple Breast: Yes: Breast Exam Deferred Cardiology: Yes: Regular Rhythm, Regular Rate, S1, S2 Abdominal: Yes: Non Tender, Flat, Soft, Increased Bowel Sounds Genitourinary: Yes: Within Normal Limits Back: Yes: Normal Inspection Musculoskeletal: Yes: full range of Motion, Gait Steady Extremities: Yes: Normal Capillary Refill Neurological: Yes: manager community outreach II-XII NML intact, Fully Oriented, Alert, Motor Strength 5/5, Normal Response Integumentary: Yes: Normal Color, Warm Lymphatic: Yes: Within Normal Limits - Diagnostic (1) Methamphetamine abuse Current Visit: Yes Status: Chronic (2) Alcohol abuse Current Visit: Yes Status: Suspected (3) Cannabis abuse, uncomplicated Current Visit: Yes Status: Acute (4) HLD (hyperlipidemia) Current Visit: Yes Status: Chronic Qualifiers: Hyperlipidemia type: unspecified Qualified Code(s): E78.5 - Hyperlipidemia, unspecified (5) HTN (hypertension) Current Visit: Yes Status: Chronic Qualifiers: Hypertension type: essential hypertension Qualified Code(s): I10 - Essential (primary) hypertension (6) Opioid dependence with withdrawal Current Visit: Yes Status: Acute (7) Nicotine dependence, unspecified, uncomplicated Current Visit: Yes Status: Chronic Qualifiers: Nicotine product type: cigarettes Qualified Code(s): F17.210 - Nicotine dependence, cigarettes, uncomplicated Cleared for Admission BHS - Detox or Rehab [facility] Level of Care: Medically Managed Detox Regimen/Protocol: Methadone Claeared for Rehab Admission: No Breathalyzer - Breathalyzer Breathalyzer: 0 Urine Drug Screen - Test Device Lot number: [id number] Expiration date: 01/18/21 - Control Is test valid?: Yes - Results Drug screen NEGATIVE: No Urine drug screen results: THC-Marijuana, MET-Methamphetamine, AMP-Amphetamines, FEN-Fentanyl, MOP-Opiates Inpatient Rehab Admission - Rehab Decision to Admit Inpatient rehab admission?: No
[2019-11-24] MEDS ORDERED: MAGNESIUM HYDROX 2400MG/30ML ORAL SUSPENSION 30 ML CUP PO PRN (18:37)
[2019-11-24] MEDS ORDERED: METHOCARBAMOL 500 MG TABLET PO PRN (18:37)
[2019-11-24] MEDS ORDERED: MAG HYDROX/AL HYDROX/SIMETH 30 ML UNIT-DOSE CUP PO PRN (18:37)
[2019-11-24] MEDS ORDERED: ACETAMINOPHEN 325 MG TABLET (FP) PO PRN ×2 (18:37)
[2019-11-24] MEDS ORDERED: IBUPROFEN 400 MG TABLET (FP) PO PRN (18:37)
[2019-11-24] MEDS ORDERED: BISMUTH SUBSALICYLATE 524 MG/30 ML UD PO PRN (18:37)
[2019-11-24] MEDS ORDERED: MENTHOL/PHENOL 1 EACH UD MM PRN (18:37)
[2019-11-24] MEDS ORDERED: METHADONE HCL 10 MG TABLET (FOR DETOX USE ONLY) PO ONE (18:37)
[2019-11-24] MEDS ORDERED: cloNIDine HCL 0.1 MG TABLET PO PRN (18:37)
[2019-11-24] MEDS ORDERED: NICOTINE POLACRILEX 2 MG GUM BUC PRN (18:37)
[2019-11-24] MEDS ORDERED: MAGNESIUM CITRATE 300 ML BOTTLE PO PRN (18:37)
[2019-11-24] MEDS ORDERED: ONDANSETRON *ODT* 4 MG TABLET SL ONE (18:37)
[2019-11-24] MEDS ORDERED: NICOTINE 14 MG/24 HOURS TOPICAL PATCH TD PRN (18:43)
[2019-11-24] MEDS ORDERED: guaiFENesin 200 MG/10 ML 10 ML UNIT-DOSE CUPS PO PRN (18:43)
[2019-11-24] MEDS ORDERED: TUBERCULIN PPD 5 TU/0.1ML VIAL ID ONE (20:20)
[2019-11-24] MEDS: THIAMINE HCL 100 MG TABLET (FP) PO SCH (22:51)
[2019-11-24] MEDS: hydrOXYzine PAMOATE 25 MG CAPSULE (FP) PO SCH (22:51)
[2019-11-24] MEDS: MELATONIN 5 MG TABLETS PO SCH (22:52)
[2019-11-25] MEDS: hydrOXYzine PAMOATE 25 MG CAPSULE (FP) PO SCH ×2 (06:34→10:22)
[2019-11-25] MEDS ORDERED: METHADONE HCL 5 MG TABLET (FOR DETOX USE ONLY) PO ONE (10:00)
[2019-11-25] MEDS: PRENATAL VITAMINS W/ FOLIC ACID TABLET (FP) PO SCH (10:22)
[2019-11-25 10:26] LABS: HEMATOCRIT 40.3 % (35.4-49); HEMOGLOBIN 13.5 GM/dL (11.7-16.9); MCH 30.7 pg (25.7-33.7); MCHC 33.4 g/dl (32.0-35.9); MEAN CELL VOLUME 91.7 fl (80-96); PLATELET COUNT 237 K/MM3 (134-434); RBC 4.39 M/mm3 (4.00-5.60); RDW 14.7 % (11.9-15.9)
[2019-11-25 10:39] LABS: POTASSIUM 4.4 mmol/L (3.5-5.1)
[2019-11-25 10:50] LABS: ALBUMIN 3.1 g/dl (3.4-5.0); BILIRUBIN,TOTAL 0.4 mg/dL (0.2-1); BLOOD UREA NITROGEN 19.8 mg/dL (7-18); CALCIUM 8.6 mg/dL (8.5-10.1); CREATININE 0.8 mg/dL (0.55-1.3); TOT PROT 6.1 g/dl (6.4-8.2)
--- NOTE | 2019-11-25 11:26 | PN ---
S CIWA - CIWA Score Nausea/Vomitin-No Nausea/No Vomiting Muscle Tremors: 4-Moderate,w/Arms Extend Anxiety: 4-Mod. Anxious/Guarded Agitation: 4-Moderately Restless Paroxysmal Sweats: 1-Minimal Palms Moist Orientation: 0-Oriented Tacttile Disturbances: 0-None Auditory Disturbances: 0-None Visual Disturbances: 0-None Headache: 0-None Present CIWA-Ar Total Score: 13 BHS COWS - Scale Resting Pulse: 0= [place] 80 or Below Sweatin= Chills/Flushing Restless Observation: 3= Extraneous Movement Pupil Size: 0= Normal to Room Light Bone or Joint Aches: 2= Severe Diffuse Aches Runny Nose/ Eye Tearin= None GI Upset > 30mins: 0= None Tremor Observation of Outstretched Hands: 1= Tremor [place], Not Seen Yawning Observation: 0= None Anxiety or Irritability: 2=Irritable/Anxious Goose Flesh Skin: 0=Smooth Skin COWS Score: 9 S Progress Note (SOAP) Subjective: Pt is a 49 y/o male admitted to detox for alcohol/heroin withdrawal sx. pt c/o anxiety irritability sl tremors sweats fatigue Objective: 11/25/19 11:23 Vital Signs - 24 hr 11/24/19 11/24/19 11/24/19 14:34 16:48 20:10 Temperature 96.8 F L 97.1 F L Pulse Rate 76 76 64 Respiratory 17 12 18 Rate Blood Pressure 126/84 126/84 115/71 O2 Sat by Pulse 95 Oximetry (%) 11/25/19 06:32 Temperature 98.0 F Pulse Rate 46 L Respiratory 16 Rate Blood Pressure 101/56 L O2 Sat by Pulse 96 Oximetry (%) Laboratory Tests 11/25/19 11/25/19 08:00 08:00 WBC 8.0 RBC 4.39 Hgb 13.5 Hct 40.3 MCV 91.7 MCH 30.7 MCHC 33.4 RDW 14.7 Plt Count 237 MPV 8.0 Sodium 138 Potassium 4.4 Chloride 104 Carbon Dioxide 31 Anion Gap 2 L BUN 19.8 H Creatinine 0.8 Est GFR (CKD-EPI)AfAm 119.88 Est GFR (CKD-EPI)NonAf 103.43 Random Glucose 70 L Calcium 8.6 Total Bilirubin 0.4 AST 17 ALT 21 Alkaline Phosphatase 60 Total Protein 6.1 L Albumin 3.1 L covid-19 result pending alert o x 3 nad oob ambulating with steady gait Assessment: 11/25/19 11:24 withdrawal sx Plan: cont detox increase po fluids maintain safety
--- NOTE | 2019-11-25 12:13 | EKG ---
Test Reason : Blood Pressure : / mmHG Vent. Rate : 063 BPM Atrial Rate : 063 BPM P-R Int : 140 ms QRS Dur : 094 ms QT Int : 418 ms P-R-T Axes : 052 040 036 degrees QTc Int : 427 ms SINUS RHYTHM WITH PREMATURE ATRIAL COMPLEXES OTHERWISE NORMAL ECG WHEN COMPARED WITH ECG OF 17-NOV-2018 20:55, NO SIGNIFICANT CHANGE WAS FOUND Confirmed by MD Clive, Parker ([id number]) on 11/25/2019 12:12:41 PM Referred By: Confirmed By:Parker Duffy MD
[2019-11-25] MEDS ORDERED: LORazepam 2 MG TABLET PO PRN (12:50)
[2019-11-25] MEDS ORDERED: hydrOXYzine PAMOATE 25 MG CAPSULE (FP) PO PRN (12:50)
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
--- NOTE | 2019-11-25 17:33 | PN ---
[facility] Progress Note Note: PT REQUESTING FUNGAL FOOT CREAM . p: TIiNACTIN ORDERED
[2019-11-25] MEDS: TOLNAFTATE 1% CREAM 15 GM TUBE TP SCH (22:02)
[2019-11-25] MEDS: MELATONIN 5 MG TABLETS PO SCH (22:02)
[2019-11-25] MEDS: THIAMINE HCL 100 MG TABLET (FP) PO SCH (22:03)
[2019-11-26] MEDS ORDERED: METHADONE HCL 10 MG TABLET (FOR DETOX USE ONLY) PO ONE (10:00)
[2019-11-26] MEDS: PRENATAL VITAMINS W/ FOLIC ACID TABLET (FP) PO SCH (10:53)
[2019-11-26] MEDS: TOLNAFTATE 1% CREAM 15 GM TUBE TP SCH ×2 (10:54→21:20)
[2019-11-26] MEDS ORDERED: PNEUMOCOCCAL 23 VACCINE 0.5 ML VIAL IM ONE (12:00)
[2019-11-26] MEDS ORDERED: PNEUMOC 13-VAL CONJ-DIP CRM/PF 0.5 ML DISP.SYRIN IM ONE (12:00)
--- NOTE | 2019-11-26 12:11 | PN ---
[facility] CIWA - CIWA Score Nausea/Vomitin-No Nausea/No Vomiting Muscle Tremors: 2 Anxiety: 2 Agitation: 0-Normal Activity Paroxysmal Sweats: 1-Minimal Palms Moist Orientation: 0-Oriented Tacttile Disturbances: 0-None Auditory Disturbances: 0-None Visual Disturbances: 0-None Headache: 0-None Present CIWA-Ar Total Score: 5 S COWS - Scale Resting Pulse: 0= [place] 80 or Below Sweatin= Chills/Flushing Restless Observation: 0= Sits Still Pupil Size: 0= Normal to Room Light Bone or Joint Aches: 1= Mild Discomfort Runny Nose/ Eye Tearin= None GI Upset > 30mins: 0= None Tremor Observation of Outstretched Hands: 0= None Yawning Observation: 0= None Anxiety or Irritability: 0= None Goose Flesh Skin: 0=Smooth Skin COWS Score: 2 S Progress Note (SOAP) Subjective: States "i don't know how i feel yet". slight agitation. c/o sl anxiety Objective: 11/26/19 12:10 Vital Signs - 24 hr 11/25/19 11/25/19 11/25/19 12:55 16:50 21:10 Temperature 97.7 F 98.0 F 97.8 F Pulse Rate 52 L 62 66 Respiratory 16 18 18 Rate Blood Pressure 111/61 117/70 138/79 O2 Sat by Pulse 95 97 Oximetry (%) 11/26/19 05:38 Temperature 98.6 F Pulse Rate 58 L Respiratory 18 Rate Blood Pressure 100/60 O2 Sat by Pulse 96 Oximetry (%) Laboratory Tests 11/24/19 11/25/19 11/25/19 10:00 08:00 08:00 WBC 8.0 RBC 4.39 Hgb 13.5 Hct 40.3 MCV 91.7 MCH 30.7 MCHC 33.4 RDW 14.7 Plt Count 237 MPV 8.0 Sodium Potassium Chloride Carbon Dioxide Anion Gap BUN Creatinine Est GFR (CKD-EPI)AfAm Est GFR (CKD-EPI)NonAf Random Glucose Calcium Total Bilirubin AST ALT Alkaline Phosphatase Total Protein Albumin Syphilis Serology Non-reactive HIV Ag/Ab Combo Qual Negative 11/25/19 08:00 WBC RBC Hgb Hct MCV MCH MCHC RDW Plt Count MPV Sodium 138 Potassium 4.4 Chloride 104 Carbon Dioxide 31 Anion Gap 2 L BUN 19.8 H Creatinine 0.8 Est GFR (CKD-EPI)AfAm 119.88 Est GFR (CKD-EPI)NonAf 103.43 Random Glucose 70 L Calcium 8.6 Total Bilirubin 0.4 AST 17 ALT 21 Alkaline Phosphatase 60 Total Protein 6.1 L Albumin 3.1 L Syphilis Serology HIV Ag/Ab Combo Qual covid-19 pending alert o x 3 nad oob ambulating with steady gait 11/26/19 14:45 Assessment: 11/26/19 12:10 withdrawal sx Plan: cont detox increase po fluids maintain safety
[2019-11-26] MEDS: MELATONIN 5 MG TABLETS PO SCH (21:19)
[2019-11-26] MEDS: THIAMINE HCL 100 MG TABLET (FP) PO SCH (21:20)
[2019-11-27 05:33] VITALS: TEMP 98.4
[2019-11-27] MEDS ORDERED: METHADONE HCL 5 MG TABLET (FOR DETOX USE ONLY) PO ONE (06:00)
--- NOTE | 2019-11-27 08:55 | DS ---
[facility] Detox Discharge Summary Admission Date: 11/24/19 Discharge Date: 11/27/19 - History Present History: Cannabis Dependence, Cocaine Dependence, Opioid Dependence Additional Comments: Pt reports he has no PCP at this time. Encouraged pt to seek primary care with the closest hospital near him and to go to the nearest ER for care if needed. Pertinent Past History: HTN(no med) HLD(no med) - Physical Exam Results Vital Signs: Vital Signs Temperature 98.4 F 11/27/19 05:32 Pulse Rate 58 L 11/27/19 05:32 Respiratory Rate 18 11/27/19 05:32 Blood Pressure 103/60 11/27/19 05:32 O2 Sat by Pulse Oximetry (%) 96 11/27/19 05:32 Alert o x 3 nad oob ambulating with steady gait cardiac:s1 s2, leila lungs:ctab abdomen:soft,+bs,nt,nd extremities;no edema,skin intact Pertinent Admission Physical Exam Findings: Laboratory Tests 11/24/19 11/24/19 11/25/19 10:00 19:31 08:00 WBC RBC Hgb Hct MCV MCH MCHC RDW Plt Count MPV Sodium Potassium Chloride Carbon Dioxide Anion Gap BUN Creatinine Est GFR (CKD-EPI)AfAm Est GFR (CKD-EPI)NonAf Random Glucose Calcium Total Bilirubin AST ALT Alkaline Phosphatase Total Protein Albumin Syphilis Serology Non-reactive COVID-19 ([facility]AINA) Not detected HIV Ag/Ab Combo Qual Negative 11/25/19 11/25/19 08:00 08:00 WBC 8.0 RBC 4.39 Hgb 13.5 Hct 40.3 MCV 91.7 MCH 30.7 MCHC 33.4 RDW 14.7 Plt Count 237 MPV 8.0 Sodium 138 Potassium 4.4 Chloride 104 Carbon Dioxide 31 Anion Gap 2 L BUN 19.8 H Creatinine 0.8 Est GFR (CKD-EPI)AfAm 119.88 Est GFR (CKD-EPI)NonAf 103.43 Random Glucose 70 L Calcium 8.6 Total Bilirubin 0.4 AST 17 ALT 21 Alkaline Phosphatase 60 Total Protein 6.1 L Albumin 3.1 L Syphilis Serology COVID-19 (ZAINA) HIV Ag/Ab Combo Qual - Treatment Hospital Course: Detox Protocol Followed, Detoxed Safely, Responded well, Discharged Condition Good, Rehab Referral Accepted Patient has Accepted a Rehab Referral to: [facility] - Medication Discharge Medications: Ambulatory Orders NK [No Known Home Medication] 11/18/18 - Diagnosis (1) Opioid dependence with withdrawal Status: Acute (2) HLD (hyperlipidemia) Status: Chronic Qualifiers: Hyperlipidemia type: unspecified Qualified Code(s): E78.5 - Hyperlipidemia, unspecified (3) HTN (hypertension) Status: Chronic Qualifiers: Hypertension type: essential hypertension Qualified Code(s): I10 - Essential (primary) hypertension (4) Nicotine dependence, unspecified, uncomplicated Status: Chronic Qualifiers: Nicotine product type: cigarettes Qualified Code(s): F17.210 - Nicotine dependence, cigarettes, uncomplicated - AMA Did Patient Leave Against Medical Advice: No
[2019-11-27 09:53] VITALS: BP 112/60; PULSE 66
== END 2019-11-27 10:00 | disposition home or self-care (01) | DRG 773 ==
LOC: YASAS 14:34 → Y5N DETOX 19:12
PROVIDERS: ADMIT Allergy & Immunology; ATTEND Allergy & Immunology
PROC: HZ2ZZZZ Detoxification Services for Substance Abuse Treatment (ICD-10-PCS; principal; 2019-11-24)
DX: F11.23 Opioid dependence with withdrawal (principal); F10.10 Alcohol abuse, uncomplicated; F12.20 Cannabis dependence, uncomplicated; F15.10 Other stimulant abuse, uncomplicated; F17.210 Nicotine dependence, cigarettes, uncomplicated; I10 Essential (primary) hypertension; E78.5 Hyperlipidemia, unspecified
CPT/HCPCS: 36415; 80053; 85027; 86780; 87389; 93005; 93010; Q0162; U0003

== ENCOUNTER 2020-04-16 10:40 | Inpatient (IN) | payer OTHER ==
[2020-04-16 11:26] VITALS: BMI 25.0
[2020-04-16] MEDS ORDERED: chlordiazePOXIDE HCL 25 MG CAPSULE PO PRN (11:48)
[2020-04-16] MEDS ORDERED: ACETAMINOPHEN 325 MG TABLET (FP) PO PRN ×2 (11:48)
[2020-04-16] MEDS ORDERED: MAG HYDROX/AL HYDROX/SIMETH 30 ML UNIT-DOSE CUP PO PRN (11:48)
[2020-04-16] MEDS ORDERED: IBUPROFEN 400 MG TABLET (FP) PO PRN (11:48)
[2020-04-16] MEDS ORDERED: METHOCARBAMOL 500 MG TABLET PO PRN (11:48)
[2020-04-16] MEDS ORDERED: MENTHOL/PHENOL 1 EACH UD MM PRN (11:48)
[2020-04-16] MEDS ORDERED: MAGNESIUM CITRATE 300 ML BOTTLE PO PRN (11:48)
[2020-04-16] MEDS ORDERED: ONDANSETRON *ODT* 4 MG TABLET SL PRN (11:48)
[2020-04-16] MEDS ORDERED: NICOTINE POLACRILEX 2 MG GUM BUC PRN (11:48)
[2020-04-16] MEDS ORDERED: BISMUTH SUBSALICYLATE 262 MG/15 ML BTL PO PRN (11:48)
[2020-04-16] MEDS ORDERED: MAGNESIUM HYDROX 2400MG/30ML ORAL SUSPENSION 30 ML CUP PO PRN (11:48)
[2020-04-16] MEDS: chlordiazePOXIDE HCL 25 MG CAPSULE PO SCH ×3 (13:07→22:00)
[2020-04-16] MEDS: PRENATAL VITAMINS W/ FOLIC ACID TABLET (FP) PO SCH (13:15)
[2020-04-16] MEDS: NICOTINE 7 MG/24 HOURS TOPICAL PATCH TD SCH (13:15)
[2020-04-16] MEDS: hydrOXYzine PAMOATE 25 MG CAPSULE (FP) PO SCH ×3 (13:15→22:00)
[2020-04-16 16:08] LABS: POTASSIUM 4.3 mmol/L (3.5-5.1)
[2020-04-16 16:11] LABS: CALCIUM 9.4 mg/dL (8.5-10.1)
[2020-04-16 16:12] LABS: ALBUMIN 3.6 g/dl (3.4-5.0); BLOOD UREA NITROGEN 15.2 mg/dL (7-18); HEMATOCRIT 39.5 % (35.4-49); HEMOGLOBIN 13.1 GM/dL (11.7-16.9); MCH 29.9 pg (25.7-33.7); MCHC 33.2 g/dl (32.0-35.9); MEAN CELL VOLUME 90.1 fl (80-96); MEAN PLT VOLUME 8.3 fl (7.5-11.1); PLATELET COUNT 269 K/MM3 (134-434); RBC 4.38 M/mm3 (4.00-5.60); RDW 15.1 % (11.9-15.9); WHITE BLOOD COUNT 8.9 K/mm3 (4.0-10.0)
[2020-04-16 16:17] LABS: BILIRUBIN,TOTAL 0.6 mg/dL (0.2-1); TOT PROT 6.8 g/dl (6.4-8.2)
[2020-04-16] MEDS: THIAMINE HCL 100 MG TABLET (FP) PO SCH (21:59)
[2020-04-16] MEDS: MELATONIN 5 MG TABLETS PO SCH (22:01)
[2020-04-17] MEDS: chlordiazePOXIDE HCL 25 MG CAPSULE PO SCH (05:20)
[2020-04-17] MEDS: hydrOXYzine PAMOATE 25 MG CAPSULE (FP) PO SCH ×5 (05:20→22:01)
[2020-04-17] MEDS ORDERED: chlordiazePOXIDE HCL 10 MG CAPSULE PO PRN (10:06)
[2020-04-17] MEDS: PRENATAL VITAMINS W/ FOLIC ACID TABLET (FP) PO SCH (10:15)
[2020-04-17] MEDS: NICOTINE 7 MG/24 HOURS TOPICAL PATCH TD SCH (10:17)
[2020-04-17] MEDS: chlordiazePOXIDE HCL 10 MG CAPSULE PO SCH ×3 (10:32→22:01)
[2020-04-17] MEDS ORDERED: MASKS NR ONE (11:40)
[2020-04-17] MEDS: MELATONIN 5 MG TABLETS PO SCH (22:01)
[2020-04-17] MEDS: THIAMINE HCL 100 MG TABLET (FP) PO SCH (22:01)
[2020-04-18] MEDS ORDERED: chlordiazePOXIDE HCL 25 MG CAPSULE PO SCH (05:00)
[2020-04-18] MEDS: hydrOXYzine PAMOATE 25 MG CAPSULE (FP) PO SCH ×2 (05:07→10:12)
[2020-04-18] MEDS: chlordiazePOXIDE HCL 10 MG CAPSULE PO SCH ×2 (05:07→10:11)
[2020-04-18] MEDS: PRENATAL VITAMINS W/ FOLIC ACID TABLET (FP) PO SCH (11:00)
[2020-04-18] MEDS: NICOTINE 7 MG/24 HOURS TOPICAL PATCH TD SCH (11:00)
[2020-04-18 11:06] VITALS: BP 150/78; PULSE 81; TEMP 97.8
[2020-04-19] MEDS ORDERED: chlordiazePOXIDE HCL 10 MG CAPSULE PO PRN
[2020-04-19] MEDS ORDERED: chlordiazePOXIDE HCL 10 MG CAPSULE PO SCH ×2 (05:00)
[2020-04-20] MEDS ORDERED: chlordiazePOXIDE HCL 10 MG CAPSULE PO SCH (05:00)
[2020-04-21] MEDS ORDERED: chlordiazePOXIDE HCL 10 MG CAPSULE PO ONE (05:00)
== END 2020-04-18 13:25 | disposition left against medical advice (07) | DRG 773 ==
LOC: YASAS 10:40 → Y6N 11:46
PROVIDERS: ADMIT Allergy & Immunology; ATTEND Allergy & Immunology
PROC: HZ2ZZZZ Detoxification Services for Substance Abuse Treatment (ICD-10-PCS; principal; 2020-04-16)
DX: F11.23 Opioid dependence with withdrawal (principal); F10.230 Alcohol dependence with withdrawal, uncomplicated; F15.20 Other stimulant dependence, uncomplicated; F12.20 Cannabis dependence, uncomplicated; F17.210 Nicotine dependence, cigarettes, uncomplicated; I10 Essential (primary) hypertension; E78.5 Hyperlipidemia, unspecified; R73.9 Hyperglycemia, unspecified; Z59.0 Homelessness
CPT/HCPCS: 36415; 80053; 85027; 86780; C9803; U0003

== ENCOUNTER 2020-07-19 19:50 | Inpatient (IN) | payer OTHER ==
[2020-07-19] MEDS ORDERED: NICOTINE POLACRILEX 2 MG GUM BUC PRN (22:31)
[2020-07-19] MEDS ORDERED: ACETAMINOPHEN 325 MG TABLET (FP) PO PRN ×2 (22:31)
[2020-07-19] MEDS ORDERED: ONDANSETRON *ODT* 4 MG TABLET SL PRN (22:31)
[2020-07-19] MEDS ORDERED: BISMUTH SUBSALICYLATE 524 MG/30 ML UD PO PRN (22:31)
[2020-07-19] MEDS ORDERED: guaiFENesin 200 MG/10 ML 10 ML UNIT-DOSE CUPS PO PRN (22:31)
[2020-07-19] MEDS ORDERED: IBUPROFEN 400 MG TABLET (FP) PO PRN (22:31)
[2020-07-19] MEDS ORDERED: P-EPHED 60MG/TRIPROLIDI 2.5MG TABLET PO PRN (22:31)
[2020-07-19] MEDS ORDERED: MENTHOL/PHENOL 1 EACH UD MM PRN (22:31)
[2020-07-19] MEDS ORDERED: MAG HYDROX/AL HYDROX/SIMETH 30 ML UNIT-DOSE CUP PO PRN (22:31)
[2020-07-19] MEDS ORDERED: DICYCLOMINE HCL 10 MG CAPSULE PO PRN (22:31)
[2020-07-19] MEDS ORDERED: chlordiazePOXIDE HCL 25 MG CAPSULE PO PRN (22:31)
[2020-07-19] MEDS ORDERED: MAGNESIUM HYDROX 2400MG/30ML ORAL SUSPENSION 30 ML CUP PO PRN (22:31)
[2020-07-19] MEDS ORDERED: MAGNESIUM CITRATE 300 ML BOTTLE PO PRN (22:31)
[2020-07-19] MEDS ORDERED: METHOCARBAMOL 500 MG TABLET PO PRN (22:31)
[2020-07-19] MEDS ORDERED: cloNIDine HCL 0.1 MG TABLET PO PRN (22:33)
[2020-07-19 22:47] VITALS: BMI 24.1
[2020-07-20] MEDS ORDERED: chlordiazePOXIDE HCL 25 MG CAPSULE ONE ×3 (00:34→10:25)
[2020-07-20] MEDS: chlordiazePOXIDE HCL 25 MG CAPSULE PO SCH ×5 (00:37→22:22)
[2020-07-20] MEDS ORDERED: NICOTINE 14 MG/24 HOURS TOPICAL PATCH TD ONE (10:25)
[2020-07-20 10:37] LABS: POTASSIUM 4.1 mmol/L (3.5-5.1)
[2020-07-20 10:41] LABS: ALBUMIN 3.3 g/dl (3.4-5.0); CALCIUM 8.6 mg/dL (8.5-10.1); HEMATOCRIT 37.2 % (35.4-49); HEMOGLOBIN 12.8 GM/dL (11.7-16.9); MCH 30.1 pg (25.7-33.7); MCHC 34.4 g/dl (32.0-35.9); MEAN CELL VOLUME 87.5 fl (80-96); MEAN PLT VOLUME 8.4 fl (7.5-11.1); PLATELET COUNT 198 K/MM3 (134-434); RBC 4.25 M/mm3 (4.00-5.60); RDW 15.2 % (11.9-15.9); WHITE BLOOD COUNT 7.6 K/mm3 (4.0-10.0)
[2020-07-20 10:42] LABS: BLOOD UREA NITROGEN 22.1 mg/dL (7-18)
[2020-07-20 10:45] LABS: CREATININE 0.7 mg/dL (0.55-1.3)
[2020-07-20 10:46] LABS: BILIRUBIN,TOTAL 1.1 mg/dL (0.2-1); TOT PROT 6.8 g/dl (6.4-8.2)
[2020-07-20] MEDS: NICOTINE 14 MG/24 HOURS TOPICAL PATCH TD SCH (11:28)
[2020-07-20] MEDS: PRENATAL VITAMINS W/ FOLIC ACID TABLET (FP) PO SCH (12:50)
[2020-07-20] MEDS ORDERED: MELATONIN 5 MG TABLETS PO SCH (22:00)
[2020-07-20] MEDS ORDERED: THIAMINE HCL 100 MG TABLET (FP) PO SCH (22:00)
[2020-07-21] MEDS: chlordiazePOXIDE HCL 25 MG CAPSULE PO SCH ×2 (07:23→11:17)
[2020-07-21] MEDS: PRENATAL VITAMINS W/ FOLIC ACID TABLET (FP) PO SCH (11:18)
[2020-07-21] MEDS: NICOTINE 14 MG/24 HOURS TOPICAL PATCH TD SCH (11:18)
[2020-07-21] MEDS ORDERED: MASKS NR ONE (17:25)
[2020-07-21 18:32] VITALS: BP 146/84; PULSE 67; TEMP 97.3
[2020-07-22] MEDS ORDERED: chlordiazePOXIDE HCL 10 MG CAPSULE PO PRN
[2020-07-22] MEDS ORDERED: chlordiazePOXIDE HCL 10 MG CAPSULE PO SCH (05:00)
[2020-07-23] MEDS ORDERED: chlordiazePOXIDE HCL 10 MG CAPSULE PO SCH (05:00)
[2020-07-24] MEDS ORDERED: chlordiazePOXIDE HCL 10 MG CAPSULE PO ONE (05:00)
== END 2020-07-21 17:31 | disposition left against medical advice (07) | DRG 770 ==
LOC: YASAS 19:50 → Y6N 07-20 12:19
PROVIDERS: ADMIT Allergy & Immunology; ATTEND Allergy & Immunology
PROC: HZ2ZZZZ Detoxification Services for Substance Abuse Treatment (ICD-10-PCS; principal; 2020-07-20)
DX: F10.230 Alcohol dependence with withdrawal, uncomplicated (principal); F11.23 Opioid dependence with withdrawal; F14.20 Cocaine dependence, uncomplicated; F15.10 Other stimulant abuse, uncomplicated; F12.20 Cannabis dependence, uncomplicated; F17.210 Nicotine dependence, cigarettes, uncomplicated; F19.24 Other psychoactive substance dependence with psychoactive substance-induced mood disorder; I10 Essential (primary) hypertension; E78.5 Hyperlipidemia, unspecified; M54.5 Low back pain; G89.29 Other chronic pain; R63.8 Other symptoms and signs concerning food and fluid intake
CPT/HCPCS: 36415; 80053; 85027; 86780; 93005; 93010; C9803; U0003

== ENCOUNTER 2020-09-01 16:17 | Inpatient (IN) | payer OTHER ==
[2020-09-01 23:08] VITALS: BMI 23.8
[2020-09-01] MEDS ORDERED: MAGNESIUM CITRATE 300 ML BOTTLE PO PRN (23:36)
[2020-09-01] MEDS ORDERED: guaiFENesin 200 MG/10 ML 10 ML UNIT-DOSE CUPS PO PRN (23:36)
[2020-09-01] MEDS ORDERED: ACETAMINOPHEN 325 MG TABLET (FP) PO PRN (23:36)
[2020-09-01] MEDS ORDERED: hydrOXYzine PAMOATE 25 MG CAPSULE (FP) PO PRN (23:36)
[2020-09-01] MEDS ORDERED: NICOTINE POLACRILEX 2 MG GUM BC PRN (23:36)
[2020-09-01] MEDS ORDERED: MAG HYDROX/AL HYDROX/SIMETH 30 ML UNIT-DOSE CUP PO PRN (23:36)
[2020-09-01] MEDS ORDERED: P-EPHED 60MG/TRIPROLIDI 2.5MG TABLET PO PRN (23:36)
[2020-09-01] MEDS ORDERED: MAGNESIUM HYDROX 2400MG/30ML ORAL SUSPENSION 30 ML CUP PO PRN (23:36)
[2020-09-01] MEDS ORDERED: LOPERAMIDE HCL 2 MG CAPSULE PO PRN (23:36)
[2020-09-01] MEDS ORDERED: IBUPROFEN 400 MG TABLET (FP) PO PRN (23:36)
[2020-09-02] MEDS: MELATONIN 5 MG TABLETS PO SCH ×2 (01:37→21:52)
[2020-09-02] MEDS: NICOTINE 21 MG/24 HOURS TOPICAL PATCH TD SCH ×2 (10:31→10:44)
[2020-09-02] MEDS: PRENATAL VITAMINS W/ FOLIC ACID TABLET (FP) PO SCH ×2 (10:31→10:40)
[2020-09-02 11:03] LABS: HEMATOCRIT 37.1 % (35.4-49); HEMOGLOBIN 12.6 GM/dL (11.7-16.9); MCH 30.3 pg (25.7-33.7); MEAN CELL VOLUME 88.9 fl (80-96); PLATELET COUNT 218 K/MM3 (134-434); RBC 4.17 M/mm3 (4.00-5.60); RDW 15.8 % (11.9-15.9); WHITE BLOOD COUNT 7.5 K/mm3 (4.0-10.0)
[2020-09-02 11:16] LABS: CALCIUM 8.1 mg/dL (8.5-10.1)
[2020-09-02 11:17] LABS: ALBUMIN 3.1 g/dl (3.4-5.0); BLOOD UREA NITROGEN 21.4 mg/dL (7-18)
[2020-09-02 11:20] LABS: CREATININE 0.8 mg/dL (0.55-1.3)
[2020-09-02 11:21] LABS: BILIRUBIN,TOTAL 0.5 mg/dL (0.2-1)
[2020-09-02 11:22] LABS: TOT PROT 6.1 g/dl (6.4-8.2)
[2020-09-02] MEDS: THIAMINE HCL 100 MG TABLET (FP) PO SCH (21:52)
[2020-09-03] MEDS: PRENATAL VITAMINS W/ FOLIC ACID TABLET (FP) PO SCH (10:48)
[2020-09-03] MEDS: NICOTINE 21 MG/24 HOURS TOPICAL PATCH TD SCH (10:48)
[2020-09-03] MEDS: THIAMINE HCL 100 MG TABLET (FP) PO SCH (21:14)
[2020-09-03] MEDS: MELATONIN 5 MG TABLETS PO SCH (21:14)
[2020-09-04] MEDS: NICOTINE 21 MG/24 HOURS TOPICAL PATCH TD SCH (10:21)
[2020-09-04] MEDS: PRENATAL VITAMINS W/ FOLIC ACID TABLET (FP) PO SCH (10:21)
[2020-09-04 15:57] LABS: URINE APPEARANCE CLEAR; URINE BILIRUBIN NEGATIVE (NEGATIVE); URINE COLOR YELLOW; URINE GLUCOSE (UA) NEGATIVE (NEGATIVE); URINE KETONE NEGATIVE (NEGATIVE); URINE LEUK ESTERASE NEGATIVE (NEGATIVE); URINE NITRITE NEGATIVE (NEGATIVE); URINE PROTEIN NEGATIVE (NEGATIVE); URINE UROBILINOGEN 0.2 mg/dL (0.2-1.0)
[2020-09-04] MEDS: THIAMINE HCL 100 MG TABLET (FP) PO SCH (21:31)
[2020-09-04] MEDS: MELATONIN 5 MG TABLETS PO SCH (21:31)
[2020-09-05 08:08] LABS: SARS-CoV-2 NAA Not Detected (Not Detected)
[2020-09-05] MEDS: NICOTINE 21 MG/24 HOURS TOPICAL PATCH TD SCH (09:29)
[2020-09-05] MEDS: PRENATAL VITAMINS W/ FOLIC ACID TABLET (FP) PO SCH (09:29)
[2020-09-05] MEDS: MELATONIN 5 MG TABLETS PO SCH (21:11)
[2020-09-05] MEDS: THIAMINE HCL 100 MG TABLET (FP) PO SCH (21:11)
[2020-09-06] MEDS: NICOTINE 21 MG/24 HOURS TOPICAL PATCH TD SCH (10:32)
[2020-09-06] MEDS: PRENATAL VITAMINS W/ FOLIC ACID TABLET (FP) PO SCH (10:32)
[2020-09-06] MEDS: THIAMINE HCL 100 MG TABLET (FP) PO SCH (21:52)
[2020-09-06] MEDS: MELATONIN 5 MG TABLETS PO SCH (21:53)
[2020-09-07] MEDS: NICOTINE 21 MG/24 HOURS TOPICAL PATCH TD SCH (10:23)
[2020-09-07] MEDS: PRENATAL VITAMINS W/ FOLIC ACID TABLET (FP) PO SCH (10:23)
[2020-09-07] MEDS: THIAMINE HCL 100 MG TABLET (FP) PO SCH (21:12)
[2020-09-07] MEDS: MELATONIN 5 MG TABLETS PO SCH (21:12)
[2020-09-08] MEDS: PRENATAL VITAMINS W/ FOLIC ACID TABLET (FP) PO SCH (10:40)
[2020-09-08] MEDS: NICOTINE 21 MG/24 HOURS TOPICAL PATCH TD SCH (10:41)
[2020-09-08] MEDS: THIAMINE HCL 100 MG TABLET (FP) PO SCH (21:52)
[2020-09-08] MEDS: MELATONIN 5 MG TABLETS PO SCH (21:52)
[2020-09-09] MEDS: PRENATAL VITAMINS W/ FOLIC ACID TABLET (FP) PO SCH (10:26)
[2020-09-09] MEDS: NICOTINE 21 MG/24 HOURS TOPICAL PATCH TD SCH (10:27)
[2020-09-09 18:32] LABS: HIV INTERPRETATION NEGATIVE (NEGATIVE)
[2020-09-09] MEDS: MELATONIN 5 MG TABLETS PO SCH (21:03)
[2020-09-09] MEDS: THIAMINE HCL 100 MG TABLET (FP) PO SCH (21:03)
[2020-09-10] MEDS: PRENATAL VITAMINS W/ FOLIC ACID TABLET (FP) PO SCH (10:17)
[2020-09-10] MEDS: NICOTINE 21 MG/24 HOURS TOPICAL PATCH TD SCH (10:17)
[2020-09-10] MEDS: MELATONIN 5 MG TABLETS PO SCH (21:17)
[2020-09-10] MEDS: THIAMINE HCL 100 MG TABLET (FP) PO SCH (21:17)
[2020-09-11] MEDS: NICOTINE 21 MG/24 HOURS TOPICAL PATCH TD SCH (10:20)
[2020-09-11] MEDS: PRENATAL VITAMINS W/ FOLIC ACID TABLET (FP) PO SCH (10:20)
[2020-09-11] MEDS: MELATONIN 5 MG TABLETS PO SCH (21:09)
[2020-09-11] MEDS: THIAMINE HCL 100 MG TABLET (FP) PO SCH (21:09)
[2020-09-12] MEDS: PRENATAL VITAMINS W/ FOLIC ACID TABLET (FP) PO SCH (10:21)
[2020-09-12] MEDS: NICOTINE 21 MG/24 HOURS TOPICAL PATCH TD SCH (10:21)
[2020-09-12] MEDS: MELATONIN 5 MG TABLETS PO SCH (21:08)
[2020-09-12] MEDS: THIAMINE HCL 100 MG TABLET (FP) PO SCH (21:08)
[2020-09-13] MEDS: NICOTINE 21 MG/24 HOURS TOPICAL PATCH TD SCH (10:00)
[2020-09-13] MEDS: PRENATAL VITAMINS W/ FOLIC ACID TABLET (FP) PO SCH (10:00)
[2020-09-13 20:35] VITALS: TEMP 97.7
[2020-09-13] MEDS: THIAMINE HCL 100 MG TABLET (FP) PO SCH (21:15)
[2020-09-13] MEDS: MELATONIN 5 MG TABLETS PO SCH (21:15)
[2020-09-14] MEDS: PRENATAL VITAMINS W/ FOLIC ACID TABLET (FP) PO SCH (10:07)
[2020-09-14] MEDS: NICOTINE 21 MG/24 HOURS TOPICAL PATCH TD SCH (10:07)
[2020-09-14] MEDS: THIAMINE HCL 100 MG TABLET (FP) PO SCH (21:07)
[2020-09-14] MEDS: MELATONIN 5 MG TABLETS PO SCH (21:07)
[2020-09-15] MEDS: PRENATAL VITAMINS W/ FOLIC ACID TABLET (FP) PO SCH (10:07)
[2020-09-15] MEDS: NICOTINE 21 MG/24 HOURS TOPICAL PATCH TD SCH (10:08)
[2020-09-15] MEDS: THIAMINE HCL 100 MG TABLET (FP) PO SCH (21:24)
[2020-09-15] MEDS: MELATONIN 5 MG TABLETS PO SCH (21:24)
[2020-09-16 07:25] VITALS: BP 122/80; PULSE 62
[2020-09-16] MEDS: PRENATAL VITAMINS W/ FOLIC ACID TABLET (FP) PO SCH (09:08)
[2020-09-16] MEDS: NICOTINE 21 MG/24 HOURS TOPICAL PATCH TD SCH (09:08)
== END 2020-09-16 09:20 | disposition home or self-care (01) | DRG 772 ==
LOC: YASAS 16:17 → Y3W 09-02 00:24
PROVIDERS: ADMIT Allergy & Immunology; ATTEND Allergy & Immunology
PROC: HZ42ZZZ Group Counseling for Substance Abuse Treatment, Cognitive-Behavioral (ICD-10-PCS; principal; 2020-09-02)
DX: F15.20 Other stimulant dependence, uncomplicated (principal); F12.20 Cannabis dependence, uncomplicated; F17.210 Nicotine dependence, cigarettes, uncomplicated; F19.282 Other psychoactive substance dependence with psychoactive substance-induced sleep disorder; F19.24 Other psychoactive substance dependence with psychoactive substance-induced mood disorder; I10 Essential (primary) hypertension; E78.5 Hyperlipidemia, unspecified; M54.5 Low back pain; G89.29 Other chronic pain; Z56.0 Unemployment, unspecified; Z59.0 Homelessness
CPT/HCPCS: 36415; 80053; 81003; 85027; 86780; 87389; C9803; U0003; U0005

== ENCOUNTER 2021-04-15 15:06 | Inpatient (IN) | payer OTHER ==
[2021-04-15 15:29] VITALS: BMI 23.9
[2021-04-15] MEDS ORDERED: ACETAMINOPHEN 325 MG TABLET (FP) PO PRN (17:43)
[2021-04-15] MEDS ORDERED: hydrOXYzine PAMOATE 25 MG CAPSULE (FP) PO PRN (17:43)
[2021-04-15] MEDS ORDERED: NICOTINE 10 MG CARTRIDGE (INHALER) IH PRN (17:43)
[2021-04-15] MEDS ORDERED: P-EPHED 60MG/TRIPROLIDI 2.5MG TABLET PO PRN (17:43)
[2021-04-15] MEDS ORDERED: MAGNESIUM HYDROX 2400MG/30ML ORAL SUSPENSION 30 ML CUP PO PRN (17:43)
[2021-04-15] MEDS ORDERED: LOPERAMIDE HCL 2 MG CAPSULE PO PRN (17:43)
[2021-04-15] MEDS ORDERED: MAG HYDROX/AL HYDROX/SIMETH 30 ML UNIT-DOSE CUP PO PRN (17:43)
[2021-04-15] MEDS ORDERED: MAGNESIUM CITRATE 300 ML BOTTLE PO PRN (17:43)
[2021-04-15] MEDS ORDERED: guaiFENesin 200 MG/10 ML 10 ML UNIT-DOSE CUPS PO PRN (17:43)
[2021-04-15] MEDS ORDERED: TUBERCULIN PPD 5 TU/0.1ML VIAL ID ONE (19:04)
[2021-04-15] MEDS: THIAMINE HCL 100 MG TABLET (FP) PO SCH (21:36)
[2021-04-15] MEDS: MELATONIN 5 MG TABLETS PO SCH (21:36)
[2021-04-15] MEDS ORDERED: MELATONIN 5 MG TABLETS PO STA (22:43)
[2021-04-16] MEDS: PRENATAL VITAMINS W/ FOLIC ACID TABLET (FP) PO SCH (09:45)
[2021-04-16] MEDS: NICOTINE 21 MG/24 HOURS TOPICAL PATCH TD SCH (09:46)
[2021-04-16] MEDS ORDERED: FLU VACC QS2021-22(6MOS UP)/PF 60 MCG/0.5 ML SYRINGE IM ONE (13:00)
[2021-04-16] MEDS: MELATONIN 5 MG TABLETS PO SCH (22:01)
[2021-04-16] MEDS: THIAMINE HCL 100 MG TABLET (FP) PO SCH (22:01)
[2021-04-17] MEDS: PRENATAL VITAMINS W/ FOLIC ACID TABLET (FP) PO SCH (09:33)
[2021-04-17] MEDS: NICOTINE 21 MG/24 HOURS TOPICAL PATCH TD SCH (09:33)
[2021-04-17 12:45] LABS: PH,URINE 6.5 (5.0-8.0); URINE APPEARANCE CLEAR; URINE BILIRUBIN NEGATIVE (NEGATIVE); URINE COLOR YELLOW; URINE GLUCOSE (UA) NEGATIVE (NEGATIVE); URINE KETONE NEGATIVE (NEGATIVE); URINE LEUK ESTERASE NEGATIVE (NEGATIVE); URINE NITRITE NEGATIVE (NEGATIVE); URINE PROTEIN NEGATIVE (NEGATIVE); URINE UROBILINOGEN 0.2 mg/dL (0.2-1.0)
[2021-04-17] MEDS: IBUPROFEN 400 MG TABLET (FP) PO PRN (15:13)
[2021-04-17 16:08] LABS: SARS-CoV-2 NAA Not Detected (Not Detected)
[2021-04-17] MEDS: MELATONIN 5 MG TABLETS PO SCH (21:08)
[2021-04-17] MEDS: THIAMINE HCL 100 MG TABLET (FP) PO SCH (21:08)
[2021-04-18] MEDS: NICOTINE 21 MG/24 HOURS TOPICAL PATCH TD SCH (09:56)
[2021-04-18] MEDS: PRENATAL VITAMINS W/ FOLIC ACID TABLET (FP) PO SCH (09:56)
[2021-04-18 10:54] LABS: HEMATOCRIT 42.6 % (35.4-49); HEMOGLOBIN 14.3 GM/dL (11.7-16.9); MCH 29.4 pg (25.7-33.7); MCHC 33.7 g/dl (32.0-35.9); MEAN CELL VOLUME 87.3 fl (80-96); MEAN PLT VOLUME 7.8 fl (7.5-11.1); PLATELET COUNT 287 10^3/uL (134-434); RBC 4.88 M/mm3 (4.00-5.60); RDW 16.3 % (11.9-15.9); WHITE BLOOD COUNT 9.4 K/mm3 (4.0-10.0)
[2021-04-18 11:32] LABS: ALBUMIN 3.4 g/dl (3.4-5.0)
[2021-04-18 11:33] LABS: CALCIUM 8.9 mg/dL (8.5-10.1)
[2021-04-18 11:34] LABS: BLOOD UREA NITROGEN 23.6 mg/dL (7-18)
[2021-04-18 11:37] LABS: CREATININE 0.9 mg/dL (0.55-1.3)
[2021-04-18 11:38] LABS: TOT PROT 7.2 g/dl (6.4-8.2)
[2021-04-18 11:39] LABS: BILIRUBIN,TOTAL 0.2 mg/dL (0.2-1)
[2021-04-18] MEDS: IBUPROFEN 400 MG TABLET (FP) PO PRN (12:57)
[2021-04-18 13:30] LABS: SYPHILIS W/ RPR CONF NON-REACTIVE (NONREACTIVE)
[2021-04-18] MEDS: BACITRACIN/POLYMYXIN B SULFATE 15 GM TUBE TP SCH ×2 (16:09→21:21)
[2021-04-18] MEDS: THIAMINE HCL 100 MG TABLET (FP) PO SCH (21:20)
[2021-04-18] MEDS: MELATONIN 5 MG TABLETS PO SCH (21:20)
[2021-04-19] MEDS: PRENATAL VITAMINS W/ FOLIC ACID TABLET (FP) PO SCH (09:40)
[2021-04-19] MEDS: BACITRACIN/POLYMYXIN B SULFATE 15 GM TUBE TP SCH ×2 (09:40→21:19)
[2021-04-19] MEDS: NICOTINE 21 MG/24 HOURS TOPICAL PATCH TD SCH (09:40)
[2021-04-19 14:09] LABS: SARS-CoV-2 NAA Not Detected (Not Detected)
[2021-04-19] MEDS: THIAMINE HCL 100 MG TABLET (FP) PO SCH (21:19)
[2021-04-19] MEDS: MELATONIN 5 MG TABLETS PO SCH (21:19)
[2021-04-20] MEDS: IBUPROFEN 400 MG TABLET (FP) PO PRN (02:41)
[2021-04-20 07:01] VITALS: BP 128/78; PULSE 57; TEMP 97.2
[2021-04-20] MEDS: BACITRACIN/POLYMYXIN B SULFATE 15 GM TUBE TP SCH (09:28)
[2021-04-20] MEDS: NICOTINE 21 MG/24 HOURS TOPICAL PATCH TD SCH (09:28)
[2021-04-20] MEDS: PRENATAL VITAMINS W/ FOLIC ACID TABLET (FP) PO SCH (09:28)
== END 2021-04-20 10:34 | disposition left against medical advice (07) | DRG 770 ==
LOC: YASAS 15:06 → Y3E 18:09
PROVIDERS: ADMIT Allergy & Immunology; ATTEND Allergy & Immunology
PROC: HZ42ZZZ Group Counseling for Substance Abuse Treatment, Cognitive-Behavioral (ICD-10-PCS; principal; 2021-04-15)
DX: F10.20 Alcohol dependence, uncomplicated (principal); F14.20 Cocaine dependence, uncomplicated; F12.10 Cannabis abuse, uncomplicated; F15.10 Other stimulant abuse, uncomplicated; F17.210 Nicotine dependence, cigarettes, uncomplicated; I10 Essential (primary) hypertension; E78.5 Hyperlipidemia, unspecified; M54.59 Other low back pain; G89.29 Other chronic pain; S91.114A Laceration without foreign body of right lesser toe(s) without damage to nail, initial encounter; W45.8XXA Other foreign body or object entering through skin, initial encounter; Y93.E1 Activity, personal bathing and showering; Y92.231 Patient bathroom in hospital as the place of occurrence of the external cause; Z59.00 Homelessness unspecified
CPT/HCPCS: 36415; 80053; 81003; 85027; 86780; 86803; 87811; 90686; C9803; G0008; U0003; U0005

== ENCOUNTER 2021-06-09 14:03 | Inpatient (IN) | payer OTHER ==
[2021-06-09] MEDS ORDERED: MAGNESIUM CITRATE 300 ML BOTTLE PO PRN (15:11)
[2021-06-09] MEDS ORDERED: MAGNESIUM HYDROX 2400MG/30ML ORAL SUSPENSION 30 ML CUP PO PRN (15:11)
[2021-06-09] MEDS ORDERED: ONDANSETRON *ODT* 4 MG TABLET SL PRN (15:11)
[2021-06-09] MEDS ORDERED: NICOTINE 10 MG CARTRIDGE (INHALER) IH PRN (15:11)
[2021-06-09] MEDS ORDERED: ACETAMINOPHEN 325 MG TABLET (FP) PO PRN ×2 (15:11)
[2021-06-09] MEDS ORDERED: BISMUTH SUBSALICYLATE 524 MG/30 ML PO PRN (15:11)
[2021-06-09] MEDS ORDERED: MAG HYDROX/AL HYDROX/SIMETH 30 ML UNIT-DOSE CUP PO PRN (15:11)
[2021-06-09] MEDS ORDERED: MENTHOL/PHENOL 1 EACH UD MM PRN (15:11)
[2021-06-09 15:25] VITALS: BMI 23.5
[2021-06-09] MEDS ORDERED: cloNIDine HCL 0.1 MG TABLET PO PRN (18:21)
[2021-06-09] MEDS ORDERED: methaDONE HCL 10 MG TABLET (FOR DETOX USE ONLY) PO ONE (18:21)
[2021-06-09] MEDS ORDERED: hydrOXYzine PAMOATE 25 MG CAPSULE (FP) PO ONE (18:55)
[2021-06-09] MEDS ORDERED: methaDONE HCL 10 MG TABLET (FOR DETOX USE ONLY) ONE (18:55)
[2021-06-09] MEDS: PRENATAL VITAMINS W/ FOLIC ACID TABLET (FP) PO SCH (18:56)
[2021-06-09] MEDS: hydrOXYzine PAMOATE 25 MG CAPSULE (FP) PO SCH ×2 (18:56→23:32)
[2021-06-09] MEDS: NICOTINE 14 MG/24 HOURS TOPICAL PATCH TD SCH (21:59)
[2021-06-09] MEDS: THIAMINE HCL 100 MG TABLET (FP) PO SCH (23:32)
[2021-06-09] MEDS: MELATONIN 5 MG TABLETS PO SCH (23:32)
[2021-06-10] MEDS: hydrOXYzine PAMOATE 25 MG CAPSULE (FP) PO SCH ×5 (06:24→22:13)
[2021-06-10] MEDS ORDERED: methaDONE HCL 10 MG TABLET (FOR DETOX USE ONLY) ONE (09:23)
[2021-06-10] MEDS: METHOCARBAMOL 500 MG TABLET PO PRN (10:17)
[2021-06-10] MEDS: PRENATAL VITAMINS W/ FOLIC ACID TABLET (FP) PO SCH (10:17)
[2021-06-10] MEDS: NICOTINE 14 MG/24 HOURS TOPICAL PATCH TD SCH (10:18)
[2021-06-10] MEDS: IBUPROFEN 400 MG TABLET (FP) PO PRN (14:08)
[2021-06-10] MEDS: MELATONIN 5 MG TABLETS PO SCH (22:10)
[2021-06-10] MEDS: THIAMINE HCL 100 MG TABLET (FP) PO SCH (22:11)
[2021-06-11] MEDS: hydrOXYzine PAMOATE 25 MG CAPSULE (FP) PO SCH ×5 (06:28→22:21)
[2021-06-11] MEDS ORDERED: methaDONE HCL 10 MG TABLET (FOR DETOX USE ONLY) PO ONE (10:00)
[2021-06-11] MEDS: PRENATAL VITAMINS W/ FOLIC ACID TABLET (FP) PO SCH (10:01)
[2021-06-11] MEDS: METHOCARBAMOL 500 MG TABLET PO PRN (10:03)
[2021-06-11] MEDS: NICOTINE 14 MG/24 HOURS TOPICAL PATCH TD SCH (10:08)
[2021-06-11] MEDS: IBUPROFEN 400 MG TABLET (FP) PO PRN (11:36)
[2021-06-11] MEDS: MELATONIN 5 MG TABLETS PO SCH (22:24)
[2021-06-11] MEDS: THIAMINE HCL 100 MG TABLET (FP) PO SCH (22:24)
[2021-06-11 23:14] VITALS: PULSE 60; TEMP 98.2
[2021-06-12] MEDS: hydrOXYzine PAMOATE 25 MG CAPSULE (FP) PO SCH ×3 (05:36→13:00)
[2021-06-12 08:13] VITALS: BP 119/58
[2021-06-12] MEDS ORDERED: methaDONE HCL 10 MG TABLET (FOR DETOX USE ONLY) ONE (09:43)
[2021-06-12] MEDS: METHOCARBAMOL 500 MG TABLET PO PRN (10:02)
[2021-06-12] MEDS: PRENATAL VITAMINS W/ FOLIC ACID TABLET (FP) PO SCH (10:02)
[2021-06-12] MEDS: NICOTINE 14 MG/24 HOURS TOPICAL PATCH TD SCH (10:03)
[2021-06-12] MEDS: IBUPROFEN 400 MG TABLET (FP) PO PRN (14:23)
[2021-06-13] MEDS ORDERED: methaDONE HCL 10 MG TABLET (FOR DETOX USE ONLY) PO ONE (10:00)
== END 2021-06-12 02:34 | disposition left against medical advice (07) | DRG 770 ==
LOC: YASAS 14:03 → Y6N 20:05
PROVIDERS: ADMIT Allergy & Immunology; ATTEND Allergy & Immunology
PROC: HZ2ZZZZ Detoxification Services for Substance Abuse Treatment (ICD-10-PCS; principal; 2021-06-09)
DX: F11.23 Opioid dependence with withdrawal (principal); F10.230 Alcohol dependence with withdrawal, uncomplicated; F14.20 Cocaine dependence, uncomplicated; F12.20 Cannabis dependence, uncomplicated; F17.210 Nicotine dependence, cigarettes, uncomplicated; F19.282 Other psychoactive substance dependence with psychoactive substance-induced sleep disorder; I10 Essential (primary) hypertension; E78.5 Hyperlipidemia, unspecified; M54.50 Low back pain, unspecified; G89.29 Other chronic pain; R63.8 Other symptoms and signs concerning food and fluid intake; Z59.01 Sheltered homelessness
CPT/HCPCS: C9803; U0003; U0005

== ENCOUNTER 2021-07-03 18:10 | Inpatient (IN) | payer OTHER ==
[2021-07-03] MEDS ORDERED: LOPERAMIDE HCL 2 MG CAPSULE PO PRN (20:54)
[2021-07-03] MEDS ORDERED: MAGNESIUM HYDROX 2400MG/30ML ORAL SUSPENSION 30 ML CUP PO PRN (20:54)
[2021-07-03] MEDS ORDERED: NICOTINE POLACRILEX 2 MG GUM BUC PRN (20:54)
[2021-07-03] MEDS ORDERED: MENTHOL/PHENOL 1 EACH UD MM PRN (20:54)
[2021-07-03] MEDS ORDERED: MAG HYDROX/AL HYDROX/SIMETH 30 ML UNIT-DOSE CUP PO PRN (20:54)
[2021-07-03] MEDS ORDERED: hydrOXYzine PAMOATE 25 MG CAPSULE (FP) PO PRN (20:54)
[2021-07-03] MEDS ORDERED: ACETAMINOPHEN 325 MG TABLET (FP) PO PRN ×2 (20:54)
[2021-07-03] MEDS ORDERED: BISMUTH SUBSALICYLATE 524 MG/30 ML PO PRN (20:54)
[2021-07-03] MEDS ORDERED: IBUPROFEN 400 MG TABLET (FP) PO PRN (20:54)
[2021-07-03] MEDS ORDERED: MAGNESIUM CITRATE 300 ML BOTTLE PO PRN (20:54)
[2021-07-03] MEDS ORDERED: ONDANSETRON *ODT* 4 MG TABLET SL PRN (20:54)
[2021-07-03 22:08] VITALS: BMI 23.5
[2021-07-03] MEDS ORDERED: methaDONE HCL 10 MG TABLET (FOR DETOX USE ONLY) PO ONE (22:20)
[2021-07-04] MEDS ORDERED: cloNIDine HCL 0.1 MG TABLET PO PRN (02:05)
[2021-07-04] MEDS ORDERED: METHOCARBAMOL 500 MG TABLET ONE (02:07)
[2021-07-04] MEDS: cloNIDine HCL 0.1 MG TABLET PO PRN ×2 (02:11→23:51)
[2021-07-04] MEDS: METHOCARBAMOL 500 MG TABLET PO PRN ×2 (02:11→23:51)
[2021-07-04] MEDS: THIAMINE HCL 100 MG TABLET (FP) PO SCH ×2 (02:12→21:19)
[2021-07-04] MEDS: MELATONIN 5 MG TABLETS PO SCH ×2 (02:12→21:19)
[2021-07-04] MEDS ORDERED: methaDONE HCL 10 MG TABLET (FOR DETOX USE ONLY) PO ONE ×2 (05:00→10:00)
[2021-07-04] MEDS: PRENATAL VITAMINS W/ FOLIC ACID TABLET (FP) PO SCH (11:52)
[2021-07-04] MEDS: NICOTINE 14 MG/24 HOURS TOPICAL PATCH TD SCH (11:52)
[2021-07-05] MEDS ORDERED: methaDONE HCL 10 MG TABLET (FOR DETOX USE ONLY) ONE (08:32)
[2021-07-05] MEDS ORDERED: methaDONE HCL 10 MG TABLET (FOR DETOX USE ONLY) PO ONE (10:00)
[2021-07-05] MEDS: PRENATAL VITAMINS W/ FOLIC ACID TABLET (FP) PO SCH (10:25)
[2021-07-05] MEDS: NICOTINE 14 MG/24 HOURS TOPICAL PATCH TD SCH (10:28)
[2021-07-05 12:21] LABS: HEMATOCRIT 37.8 % (35.4-49); HEMOGLOBIN 12.7 GM/dL (11.7-16.9); MCH 29.1 pg (25.7-33.7); MCHC 33.6 g/dl (32.0-35.9); MEAN CELL VOLUME 86.6 fl (80-96); MEAN PLT VOLUME 7.3 fl (7.5-11.1); PLATELET COUNT 263 10^3/uL (134-434); RBC 4.37 M/mm3 (4.00-5.60); RDW 16.2 % (11.9-15.9)
[2021-07-05] MEDS: cloNIDine HCL 0.1 MG TABLET PO PRN (12:30)
[2021-07-05 12:48] LABS: BLOOD UREA NITROGEN 17.2 mg/dL (7-18); CALCIUM 8.4 mg/dL (8.5-10.1)
[2021-07-05 12:51] LABS: CREATININE 0.8 mg/dL (0.55-1.3)
[2021-07-05 12:52] LABS: BILIRUBIN,TOTAL 0.4 mg/dL (0.2-1)
[2021-07-05 12:53] LABS: TOT PROT 6.2 g/dl (6.4-8.2)
[2021-07-05] MEDS: diazePAM 5 MG TABLET PO PRN (14:48)
[2021-07-05] MEDS: MELATONIN 5 MG TABLETS PO SCH (22:46)
[2021-07-05] MEDS: THIAMINE HCL 100 MG TABLET (FP) PO SCH (22:46)
[2021-07-06] MEDS: NICOTINE 14 MG/24 HOURS TOPICAL PATCH TD SCH (09:55)
[2021-07-06] MEDS: PRENATAL VITAMINS W/ FOLIC ACID TABLET (FP) PO SCH (09:59)
[2021-07-06] MEDS ORDERED: methaDONE HCL 10 MG TABLET (FOR DETOX USE ONLY) PO ONE (10:00)
[2021-07-06] MEDS: diazePAM 5 MG TABLET PO PRN (12:54)
[2021-07-06 13:00] VITALS: BP 123/79; PULSE 68; TEMP 97.8
[2021-07-07] MEDS ORDERED: methaDONE HCL 10 MG TABLET (FOR DETOX USE ONLY) PO ONE (10:00)
[2021-07-08] MEDS ORDERED: methaDONE HCL 10 MG TABLET (FOR DETOX USE ONLY) PO ONE (10:00)
== END 2021-07-06 15:51 | disposition left against medical advice (07) | DRG 770 ==
LOC: YASAS 18:10 → Y6N 07-04 01:31 → Y3N 07-04 20:26
PROVIDERS: ADMIT Allergy & Immunology; ATTEND Allergy & Immunology
PROC: HZ2ZZZZ Detoxification Services for Substance Abuse Treatment (ICD-10-PCS; principal; 2021-07-04)
DX: F11.23 Opioid dependence with withdrawal (principal); F15.20 Other stimulant dependence, uncomplicated; F12.20 Cannabis dependence, uncomplicated; F17.210 Nicotine dependence, cigarettes, uncomplicated; E78.5 Hyperlipidemia, unspecified; I10 Essential (primary) hypertension; M54.50 Low back pain, unspecified; G89.29 Other chronic pain; Z56.0 Unemployment, unspecified; Z59.00 Homelessness unspecified
CPT/HCPCS: 36415; 80053; 85027; 86780; C9803; J0735; U0003; U0005

== ENCOUNTER 2021-08-23 01:29 | Inpatient (IN) | payer OTHER ==
[2021-08-23] MEDS ORDERED: ONDANSETRON *ODT* 4 MG TABLET SL PRN (02:22)
[2021-08-23] MEDS ORDERED: MAG HYDROX/AL HYDROX/SIMETH 30 ML UNIT-DOSE CUP PO PRN (02:22)
[2021-08-23] MEDS ORDERED: MAGNESIUM HYDROX 2400MG/30ML ORAL SUSPENSION 30 ML CUP PO PRN (02:22)
[2021-08-23] MEDS ORDERED: DICYCLOMINE HCL 10 MG CAPSULE PO PRN (02:22)
[2021-08-23] MEDS ORDERED: MENTHOL/PHENOL 1 EACH UD MM PRN (02:22)
[2021-08-23] MEDS ORDERED: LOPERAMIDE HCL 2 MG CAPSULE PO PRN (02:22)
[2021-08-23] MEDS ORDERED: ACETAMINOPHEN 325 MG TABLET (FP) PO PRN ×2 (02:22)
[2021-08-23] MEDS ORDERED: BISMUTH SUBSALICYLATE 524 MG/30 ML PO PRN (02:22)
[2021-08-23] MEDS ORDERED: MAGNESIUM CITRATE 300 ML BOTTLE PO PRN (02:22)
[2021-08-23] MEDS ORDERED: NICOTINE POLACRILEX 2 MG GUM BUC PRN (02:22)
[2021-08-23 05:15] VITALS: BMI 22.7
[2021-08-23] MEDS ORDERED: methaDONE HCL 10 MG TABLET (FOR DETOX USE ONLY) PO ONE (12:21)
[2021-08-23] MEDS: METHOCARBAMOL 500 MG TABLET PO PRN ×2 (14:12→21:59)
[2021-08-23] MEDS: cloNIDine HCL 0.1 MG TABLET PO PRN ×2 (14:12→18:55)
[2021-08-23] MEDS: NICOTINE 21 MG/24 HOURS TOPICAL PATCH TD SCH (14:14)
[2021-08-23] MEDS: PRENATAL VITAMINS W/ FOLIC ACID TABLET (FP) PO SCH (14:14)
[2021-08-23] MEDS: MELATONIN 5 MG TABLETS PO SCH (21:58)
[2021-08-23] MEDS: THIAMINE HCL 100 MG TABLET (FP) PO SCH (21:59)
[2021-08-23] MEDS: IBUPROFEN 400 MG TABLET (FP) PO PRN (21:59)
[2021-08-24] MEDS: IBUPROFEN 400 MG TABLET (FP) PO PRN (07:30)
[2021-08-24] MEDS: NICOTINE 21 MG/24 HOURS TOPICAL PATCH TD SCH (10:53)
[2021-08-24] MEDS: PRENATAL VITAMINS W/ FOLIC ACID TABLET (FP) PO SCH (10:53)
[2021-08-24] MEDS: cloNIDine HCL 0.1 MG TABLET PO PRN (12:48)
[2021-08-24] MEDS: MELATONIN 5 MG TABLETS PO SCH (22:28)
[2021-08-24] MEDS: THIAMINE HCL 100 MG TABLET (FP) PO SCH (22:29)
[2021-08-25] MEDS: cloNIDine HCL 0.1 MG TABLET PO PRN (01:40)
[2021-08-25] MEDS ORDERED: methaDONE HCL 10 MG TABLET (FOR DETOX USE ONLY) PO ONE ×2 (10:00)
[2021-08-25] MEDS: NICOTINE 21 MG/24 HOURS TOPICAL PATCH TD SCH (10:01)
[2021-08-25] MEDS: PRENATAL VITAMINS W/ FOLIC ACID TABLET (FP) PO SCH (10:01)
[2021-08-25] MEDS: METHOCARBAMOL 500 MG TABLET PO PRN (10:02)
[2021-08-25 13:28] VITALS: BP 121/72; PULSE 64; TEMP 97.4
[2021-08-25 16:08] LABS: SARS-CoV-2 NAA Not Detected (Not Detected)
[2021-08-27] MEDS ORDERED: methaDONE HCL 10 MG TABLET (FOR DETOX USE ONLY) PO ONE (10:00)
== END 2021-08-25 15:13 | disposition left against medical advice (07) | DRG 770 ==
LOC: YASAS 01:29 → Y6N 03:17
PROVIDERS: ADMIT Allergy & Immunology; ATTEND Allergy & Immunology
PROC: HZ2ZZZZ Detoxification Services for Substance Abuse Treatment (ICD-10-PCS; principal; 2021-08-22)
DX: F11.23 Opioid dependence with withdrawal (principal); F17.210 Nicotine dependence, cigarettes, uncomplicated; I10 Essential (primary) hypertension; E78.5 Hyperlipidemia, unspecified; M54.59 Other low back pain; G89.29 Other chronic pain
CPT/HCPCS: C9803-CS; J0735; U0003; U0005

== ENCOUNTER 2021-09-26 15:10 | Inpatient (IN) | payer OTHER ==
[2021-09-26 19:09] VITALS: BMI 22.7
[2021-09-26] MEDS ORDERED: BENZOCAINE/MENTHOL (CHLORASEPTIC ) LOZENGE MM PRN (19:23)
[2021-09-26] MEDS ORDERED: cloNIDine HCL 0.1 MG TABLET PO PRN (19:23)
[2021-09-26] MEDS ORDERED: NICOTINE 10 MG CARTRIDGE (INHALER) IH PRN (19:23)
[2021-09-26] MEDS ORDERED: DICYCLOMINE HCL 10 MG CAPSULE PO PRN (19:23)
[2021-09-26] MEDS ORDERED: methaDONE HCL 10 MG TABLET (FOR DETOX USE ONLY) PO ONE (19:23)
[2021-09-26] MEDS ORDERED: MAG HYDROX/AL HYDROX/SIMETH 30 ML UNIT-DOSE CUP PO PRN (19:23)
[2021-09-26] MEDS ORDERED: LOPERAMIDE HCL 2 MG CAPSULE PO PRN (19:23)
[2021-09-26] MEDS ORDERED: ACETAMINOPHEN 325 MG TABLET (FP) PO PRN (19:23)
[2021-09-26] MEDS ORDERED: MAGNESIUM CITRATE 300 ML BOTTLE PO PRN (19:23)
[2021-09-26] MEDS ORDERED: BISMUTH SUBSALICYLATE 524 MG/30 ML PO PRN (19:23)
[2021-09-26] MEDS ORDERED: IBUPROFEN 400 MG TABLET (FP) PO PRN (19:23)
[2021-09-26] MEDS ORDERED: ONDANSETRON *ODT* 4 MG TABLET SL PRN (19:23)
[2021-09-26] MEDS ORDERED: MAGNESIUM HYDROX 2400MG/30ML ORAL SUSPENSION 30 ML CUP PO PRN (19:23)
[2021-09-27] MEDS ORDERED: methaDONE HCL 10 MG TABLET (FOR DETOX USE ONLY) PO ONE (00:45)
[2021-09-27] MEDS: LIDOCAINE 5% TOPICAL PATCH TP SCH ×2 (00:48→10:45)
[2021-09-27] MEDS: hydrOXYzine PAMOATE 25 MG CAPSULE (FP) PO SCH ×6 (00:49→22:09)
[2021-09-27] MEDS: LIDOCAINE PATCH REMOVAL MC SCH ×2 (00:49→22:09)
[2021-09-27] MEDS: THIAMINE HCL 100 MG TABLET (FP) PO SCH ×2 (00:55→22:08)
[2021-09-27] MEDS: SILVER SULFADIAZINE 1% TOP CREAM 50 GM JAR TP SCH ×2 (01:25→13:17)
[2021-09-27] MEDS: MELATONIN 5 MG TABLETS PO SCH ×2 (01:25→22:09)
[2021-09-27] MEDS ORDERED: methaDONE HCL 10 MG TABLET (FOR DETOX USE ONLY) ONE (09:10)
[2021-09-27] MEDS: PRENATAL VITAMINS W/ FOLIC ACID TABLET (FP) PO SCH (10:27)
[2021-09-27] MEDS: METHOCARBAMOL 500 MG TABLET PO PRN (10:29)
[2021-09-27 11:30] LABS: HEMATOCRIT 34.7 % (35.4-49); HEMOGLOBIN 11.8 GM/dL (11.7-16.9); MCH 28.9 pg (25.7-33.7); MCHC 34.1 g/dl (32.0-35.9); MEAN CELL VOLUME 84.6 fl (80-96); MEAN PLT VOLUME 7.5 fl (7.5-11.1); PLATELET COUNT 248 10^3/uL (134-434); RDW 15.9 % (11.9-15.9); WHITE BLOOD COUNT 10.8 K/mm3 (4.0-10.0)
[2021-09-27 12:18] LABS: BLOOD UREA NITROGEN 17.7 mg/dL (7-18)
[2021-09-27 12:19] LABS: CREATININE 0.7 mg/dL (0.55-1.3)
[2021-09-27 12:20] LABS: ALBUMIN 3.2 g/dl (3.4-5.0); TOT PROT 6.7 g/dl (6.4-8.2)
[2021-09-27 12:25] LABS: BILIRUBIN,TOTAL 0.7 mg/dL (0.2-1)
[2021-09-27] MEDS: BACITRACIN 0.9 GM PACKET TP SCH ×2 (13:18→22:08)
[2021-09-27] MEDS: ACETAMINOPHEN 325 MG TABLET (FP) PO PRN (19:03)
[2021-09-28] MEDS: hydrOXYzine PAMOATE 25 MG CAPSULE (FP) PO SCH ×5 (07:43→22:30)
[2021-09-28] MEDS ORDERED: COLLOIDAL OATMEAL 1 BAR EACH TP PRN (07:58)
[2021-09-28] MEDS ORDERED: methaDONE HCL 10 MG TABLET (FOR DETOX USE ONLY) PO ONE (10:00)
[2021-09-28] MEDS: LIDOCAINE 5% TOPICAL PATCH TP SCH (10:26)
[2021-09-28] MEDS: BACITRACIN 0.9 GM PACKET TP SCH ×2 (10:26→22:29)
[2021-09-28] MEDS: SILVER SULFADIAZINE 1% TOP CREAM 50 GM JAR TP SCH (10:26)
[2021-09-28] MEDS: PRENATAL VITAMINS W/ FOLIC ACID TABLET (FP) PO SCH (10:26)
[2021-09-28 10:58] LABS: BASO % 0.5 % (0-2.0); EOS % 2.4 % (0-4.5); HEMATOCRIT 37.1 % (35.4-49); HEMOGLOBIN 12.4 GM/dL (11.7-16.9); LYMPH % 25.4 % (8-40); MCH 28.3 pg (25.7-33.7); MCHC 33.4 g/dl (32.0-35.9); MEAN CELL VOLUME 84.8 fl (80-96); MEAN PLT VOLUME 7.8 fl (7.5-11.1); MONO % 8.4 % (3.8-10.2); NEUT % 63.3 % (42.8-82.8); PLATELET COUNT 269 10^3/uL (134-434); RBC 4.38 M/mm3 (4.00-5.60); RDW 15.8 % (11.9-15.9); WHITE BLOOD COUNT 8.7 K/mm3 (4.0-10.0)
[2021-09-28 14:08] LABS: SARS-CoV-2 NAA Not Detected (Not Detected)
[2021-09-28] MEDS: ACETAMINOPHEN 325 MG TABLET (FP) PO PRN (20:03)
[2021-09-28] MEDS: METHOCARBAMOL 500 MG TABLET PO PRN (20:05)
[2021-09-28] MEDS: THIAMINE HCL 100 MG TABLET (FP) PO SCH (22:27)
[2021-09-28] MEDS: MELATONIN 5 MG TABLETS PO SCH (22:27)
[2021-09-28] MEDS: LIDOCAINE PATCH REMOVAL MC SCH (22:29)
[2021-09-29] MEDS: hydrOXYzine PAMOATE 25 MG CAPSULE (FP) PO SCH ×5 (06:04→22:54)
[2021-09-29] MEDS ORDERED: methaDONE HCL 10 MG TABLET (FOR DETOX USE ONLY) ONE (09:24)
[2021-09-29] MEDS: LIDOCAINE 5% TOPICAL PATCH TP SCH (10:34)
[2021-09-29] MEDS: PRENATAL VITAMINS W/ FOLIC ACID TABLET (FP) PO SCH (10:35)
[2021-09-29] MEDS: BACITRACIN 0.9 GM PACKET TP SCH ×2 (10:36→23:16)
[2021-09-29] MEDS: SILVER SULFADIAZINE 1% TOP CREAM 50 GM JAR TP SCH (10:36)
[2021-09-29] MEDS: MELATONIN 5 MG TABLETS PO SCH (23:17)
[2021-09-29] MEDS: THIAMINE HCL 100 MG TABLET (FP) PO SCH (23:17)
[2021-09-29] MEDS: LIDOCAINE PATCH REMOVAL MC SCH (23:17)
[2021-09-30] MEDS: hydrOXYzine PAMOATE 25 MG CAPSULE (FP) PO SCH ×4 (07:04→17:47)
[2021-09-30] MEDS ORDERED: methaDONE HCL 10 MG TABLET (FOR DETOX USE ONLY) PO ONE (10:00)
[2021-09-30] MEDS: BACITRACIN 0.9 GM PACKET TP SCH (10:09)
[2021-09-30] MEDS: LIDOCAINE 5% TOPICAL PATCH TP SCH (10:10)
[2021-09-30] MEDS: SILVER SULFADIAZINE 1% TOP CREAM 50 GM JAR TP SCH (10:11)
[2021-09-30] MEDS: PRENATAL VITAMINS W/ FOLIC ACID TABLET (FP) PO SCH (10:11)
[2021-09-30 18:08] VITALS: BP 119/68; PULSE 67; TEMP 97.5
== END 2021-09-30 18:55 | disposition other institution (70) | DRG 773 ==
LOC: YASAS 15:10 → Y3N 09-27 00:07
PROVIDERS: ADMIT Allergy & Immunology; ATTEND Surgery
PROC: HZ2ZZZZ Detoxification Services for Substance Abuse Treatment (ICD-10-PCS; principal; 2021-09-27)
DX: F11.23 Opioid dependence with withdrawal (principal); F12.20 Cannabis dependence, uncomplicated; F17.210 Nicotine dependence, cigarettes, uncomplicated; E78.5 Hyperlipidemia, unspecified; I10 Essential (primary) hypertension; M16.12 Unilateral primary osteoarthritis, left hip; M54.50 Low back pain, unspecified; G89.29 Other chronic pain
CPT/HCPCS: 36415; 80053; 85025; 85027; 86780; C9803-CS; J0735; U0003; U0005

== ENCOUNTER 2021-09-30 19:08 | Inpatient (IN) | payer OTHER ==
[2021-09-30] MEDS ORDERED: guaiFENesin 200 MG/10 ML 10 ML UNIT-DOSE CUPS PO PRN (20:45)
[2021-09-30] MEDS ORDERED: hydrOXYzine PAMOATE 25 MG CAPSULE (FP) PO PRN (20:45)
[2021-09-30] MEDS ORDERED: MAG HYDROX/AL HYDROX/SIMETH 30 ML UNIT-DOSE CUP PO PRN (20:45)
[2021-09-30] MEDS ORDERED: NICOTINE POLACRILEX 2 MG GUM BUC PRN (20:45)
[2021-09-30] MEDS ORDERED: MAGNESIUM HYDROX 2400MG/30ML ORAL SUSPENSION 30 ML CUP PO PRN (20:45)
[2021-09-30] MEDS ORDERED: MAGNESIUM CITRATE 300 ML BOTTLE PO PRN (20:45)
[2021-09-30] MEDS ORDERED: LOPERAMIDE HCL 2 MG CAPSULE PO PRN (20:45)
[2021-09-30] MEDS ORDERED: BENZOCAINE/MENTHOL (CHLORASEPTIC ) LOZENGE MM PRN (20:45)
[2021-09-30] MEDS ORDERED: ACETAMINOPHEN 325 MG TABLET (FP) PO PRN (20:45)
[2021-09-30] MEDS ORDERED: P-EPHED 60MG/TRIPROLIDI 2.5MG TABLET PO PRN (20:45)
[2021-09-30] MEDS ORDERED: IBUPROFEN 400 MG TABLET (FP) PO PRN (20:45)
[2021-09-30] MEDS: THIAMINE HCL 100 MG TABLET (FP) PO SCH (21:13)
[2021-09-30] MEDS: MELATONIN 5 MG TABLETS PO SCH (21:13)
[2021-10-01] MEDS: PRENATAL VITAMINS W/ FOLIC ACID TABLET (FP) PO SCH (10:23)
[2021-10-01] MEDS: NICOTINE 14 MG/24 HOURS TOPICAL PATCH TD SCH (10:23)
[2021-10-01] MEDS: cloNIDine HCL 0.1 MG TABLET PO PRN (19:18)
[2021-10-01] MEDS: THIAMINE HCL 100 MG TABLET (FP) PO SCH (21:39)
[2021-10-01] MEDS: MELATONIN 5 MG TABLETS PO SCH (21:39)
[2021-10-02 07:15] VITALS: TEMP 97.3
[2021-10-02] MEDS: PRENATAL VITAMINS W/ FOLIC ACID TABLET (FP) PO SCH (09:45)
[2021-10-02] MEDS: NICOTINE 14 MG/24 HOURS TOPICAL PATCH TD SCH (09:46)
[2021-10-02] MEDS: cloNIDine HCL 0.1 MG TABLET PO PRN (09:51)
[2021-10-02 12:27] VITALS: BP 129/76; PULSE 66
== END 2021-10-02 19:37 | disposition left against medical advice (07) | DRG 770 ==
LOC: YASAS 19:08 → Y3W 19:10
PROVIDERS: ADMIT Allergy & Immunology; ATTEND Psychiatry & Neurology Pain Medicine
PROC: HZ42ZZZ Group Counseling for Substance Abuse Treatment, Cognitive-Behavioral (ICD-10-PCS; principal; 2021-09-30)
DX: F11.20 Opioid dependence, uncomplicated (principal); F12.20 Cannabis dependence, uncomplicated; F17.210 Nicotine dependence, cigarettes, uncomplicated
CPT/HCPCS: J0735

== ENCOUNTER 2021-12-26 19:56 | Inpatient (IN) | payer OTHER ==
[2021-12-26 21:01] VITALS: BMI 21.9
[2021-12-26] MEDS ORDERED: DICYCLOMINE HCL 10 MG CAPSULE PO PRN (22:07)
[2021-12-26] MEDS ORDERED: IBUPROFEN 400 MG TABLET (FP) PO PRN (22:07)
[2021-12-26] MEDS ORDERED: BISMUTH SUBSALICYLATE 524 MG/30 ML PO PRN (22:07)
[2021-12-26] MEDS ORDERED: BENZOCAINE/MENTHOL (CHLORASEPTIC ) LOZENGE MM PRN (22:07)
[2021-12-26] MEDS ORDERED: MAGNESIUM CITRATE 300 ML BOTTLE PO PRN (22:07)
[2021-12-26] MEDS ORDERED: P-EPHED 60MG/TRIPROLIDI 2.5MG TABLET PO PRN (22:07)
[2021-12-26] MEDS ORDERED: LOPERAMIDE HCL 2 MG CAPSULE PO PRN (22:07)
[2021-12-26] MEDS ORDERED: NICOTINE POLACRILEX 2 MG GUM BUC PRN (22:07)
[2021-12-26] MEDS ORDERED: MAGNESIUM HYDROX 2400MG/30ML ORAL SUSPENSION 30 ML CUP PO PRN (22:07)
[2021-12-26] MEDS ORDERED: hydrOXYzine PAMOATE 25 MG CAPSULE (FP) PO PRN (22:07)
[2021-12-26] MEDS ORDERED: ONDANSETRON *ODT* 4 MG TABLET SL PRN (22:07)
[2021-12-26] MEDS ORDERED: MAG HYDROX/AL HYDROX/SIMETH 30 ML UNIT-DOSE CUP PO PRN (22:07)
[2021-12-26] MEDS ORDERED: IBUPROFEN 600 MG TABLET (FP) PO PRN (22:07)
[2021-12-26] MEDS ORDERED: ACETAMINOPHEN 325 MG TABLET (FP) PO PRN ×2 (22:07)
[2021-12-27] MEDS ORDERED: methaDONE HCL 10 MG TABLET (FOR DETOX USE ONLY) PO ONE (08:40)
[2021-12-27] MEDS: PRENATAL VITAMINS W/ FOLIC ACID TABLET (FP) PO SCH (09:40)
[2021-12-27] MEDS: amLODIPine BESYLATE 5 MG TABLET (FP) PO SCH (09:41)
[2021-12-27] MEDS: cloNIDine HCL 0.1 MG TABLET PO PRN (09:43)
[2021-12-27] MEDS: THIAMINE HCL 100 MG TABLET (FP) PO SCH (23:04)
[2021-12-27] MEDS: METHOCARBAMOL 500 MG TABLET PO PRN (23:04)
[2021-12-27] MEDS: MELATONIN 5 MG TABLETS PO PRN (23:04)
[2021-12-28] MEDS: PRENATAL VITAMINS W/ FOLIC ACID TABLET (FP) PO SCH (10:17)
[2021-12-28] MEDS: amLODIPine BESYLATE 5 MG TABLET (FP) PO SCH (10:17)
[2021-12-28] MEDS: cloNIDine HCL 0.1 MG TABLET PO PRN (10:17)
[2021-12-28] MEDS: METHOCARBAMOL 500 MG TABLET PO PRN (22:18)
[2021-12-28] MEDS: MELATONIN 5 MG TABLETS PO PRN (22:18)
[2021-12-28] MEDS: THIAMINE HCL 100 MG TABLET (FP) PO SCH (22:18)
[2021-12-29] MEDS ORDERED: methaDONE HCL 10 MG TABLET (FOR DETOX USE ONLY) PO ONE (10:00)
[2021-12-29] MEDS ORDERED: BACITRACIN 0.9 GM PACKET TP SCH (10:00)
[2021-12-29] MEDS: PRENATAL VITAMINS W/ FOLIC ACID TABLET (FP) PO SCH (10:19)
[2021-12-29] MEDS: amLODIPine BESYLATE 5 MG TABLET (FP) PO SCH (10:19)
[2021-12-29] MEDS: ZINC OXIDE 20% TOPICAL OINTMENT 30 GM TUBE TP SCH (11:37)
[2021-12-29] MEDS ORDERED: CLOTRIMAZOLE 1% CREAM TP SCH (22:00)
[2021-12-29] MEDS: THIAMINE HCL 100 MG TABLET (FP) PO SCH (22:20)
[2021-12-29] MEDS: MELATONIN 5 MG TABLETS PO PRN (22:20)
[2021-12-30 09:55] VITALS: BP 142/58; PULSE 59; RESP 17; TEMP 97.5
[2021-12-30] MEDS: ZINC OXIDE 20% TOPICAL OINTMENT 30 GM TUBE TP SCH (10:08)
[2021-12-30] MEDS: amLODIPine BESYLATE 5 MG TABLET (FP) PO SCH (10:09)
[2021-12-30] MEDS: PRENATAL VITAMINS W/ FOLIC ACID TABLET (FP) PO SCH (10:09)
[2021-12-31] MEDS ORDERED: methaDONE HCL 10 MG TABLET (FOR DETOX USE ONLY) PO ONE (10:00)
== END 2021-12-30 12:15 | disposition left against medical advice (07) | DRG 770 ==
LOC: YASAS 19:56 → Y6N 23:14
PROVIDERS: ADMIT Allergy & Immunology; ATTEND Surgery
PROC: HZ2ZZZZ Detoxification Services for Substance Abuse Treatment (ICD-10-PCS; principal; 2021-12-26)
DX: F11.23 Opioid dependence with withdrawal (principal); F13.10 Sedative, hypnotic or anxiolytic abuse, uncomplicated; F12.10 Cannabis abuse, uncomplicated; F17.210 Nicotine dependence, cigarettes, uncomplicated; I10 Essential (primary) hypertension; E78.5 Hyperlipidemia, unspecified; M16.12 Unilateral primary osteoarthritis, left hip; M54.50 Low back pain, unspecified; G89.29 Other chronic pain
CPT/HCPCS: 87811; C9803-CS; J0735; U0003; U0005

== ENCOUNTER 2022-01-19 22:40 | Inpatient (IN) | payer OTHER ==
[2022-01-20 00:29] VITALS: BMI 22.7
[2022-01-20] MEDS ORDERED: BISMUTH SUBSALICYLATE 524 MG/30 ML PO PRN (01:15)
[2022-01-20] MEDS ORDERED: ONDANSETRON *ODT* 4 MG TABLET SL PRN (01:15)
[2022-01-20] MEDS ORDERED: DICYCLOMINE HCL 10 MG CAPSULE PO PRN (01:15)
[2022-01-20] MEDS ORDERED: MAG HYDROX/AL HYDROX/SIMETH 30 ML UNIT-DOSE CUP PO PRN (01:15)
[2022-01-20] MEDS ORDERED: LOPERAMIDE HCL 2 MG CAPSULE PO PRN (01:15)
[2022-01-20] MEDS ORDERED: MAGNESIUM HYDROX 2400MG/30ML ORAL SUSPENSION 30 ML CUP PO PRN (01:15)
[2022-01-20] MEDS ORDERED: BENZOCAINE/MENTHOL (CHLORASEPTIC ) LOZENGE MM PRN (01:15)
[2022-01-20] MEDS ORDERED: methaDONE HCL 10 MG TABLET (FOR DETOX USE ONLY) PO ONE (01:15)
[2022-01-20] MEDS ORDERED: cloNIDine HCL 0.1 MG TABLET PO PRN (01:15)
[2022-01-20] MEDS ORDERED: NICOTINE POLACRILEX 2 MG GUM BUC PRN (01:15)
[2022-01-20] MEDS ORDERED: IBUPROFEN 600 MG TABLET (FP) PO PRN (01:15)
[2022-01-20] MEDS ORDERED: IBUPROFEN 400 MG TABLET (FP) PO PRN (01:15)
[2022-01-20] MEDS ORDERED: MAGNESIUM CITRATE 300 ML BOTTLE PO PRN (01:15)
[2022-01-20] MEDS ORDERED: ACETAMINOPHEN 325 MG TABLET (FP) PO PRN ×2 (01:15)
[2022-01-20] MEDS: PRENATAL VITAMINS W/ FOLIC ACID TABLET (FP) PO SCH (11:48)
[2022-01-20] MEDS: NICOTINE 21 MG/24 HOURS TOPICAL PATCH TD SCH (11:48)
[2022-01-21] MEDS: MELATONIN 5 MG TABLETS PO SCH ×2 (00:32→22:39)
[2022-01-21] MEDS: THIAMINE HCL 100 MG TABLET (FP) PO SCH ×2 (00:32→22:39)
[2022-01-21] MEDS: METHOCARBAMOL 500 MG TABLET PO PRN ×3 (01:16→22:39)
[2022-01-21] MEDS: PRENATAL VITAMINS W/ FOLIC ACID TABLET (FP) PO SCH (10:14)
[2022-01-21] MEDS: NICOTINE 21 MG/24 HOURS TOPICAL PATCH TD SCH (10:14)
[2022-01-21 15:38] LABS: ALBUMIN 3.6 g/dl (3.4-5.0); CREATININE 0.8 mg/dL (0.55-1.3)
[2022-01-21 15:39] LABS: BLOOD UREA NITROGEN 16.3 mg/dL (7-18); CALCIUM 9.4 mg/dL (8.5-10.1)
[2022-01-21 15:40] LABS: BILIRUBIN,TOTAL 0.4 mg/dL (0.2-1)
[2022-01-21 15:41] LABS: HEMATOCRIT 41.7 % (35.4-49); HEMOGLOBIN 13.9 GM/dL (11.7-16.9); MCH 28.1 pg (25.7-33.7); MCHC 33.3 g/dl (32.0-35.9); MEAN CELL VOLUME 84.5 fl (80-96); MEAN PLT VOLUME 7.8 fl (7.5-11.1); PLATELET COUNT 297 10^3/uL (134-434); RBC 4.94 M/mm3 (4.00-5.60); RDW 15.9 % (11.9-15.9); WHITE BLOOD COUNT 7.8 K/mm3 (4.0-10.0)
[2022-01-21 15:42] LABS: TOT PROT 7.3 g/dl (6.4-8.2)
[2022-01-22] MEDS ORDERED: methaDONE HCL 10 MG TABLET (FOR DETOX USE ONLY) PO ONE (10:00)
[2022-01-22] MEDS: METHOCARBAMOL 500 MG TABLET PO PRN ×2 (11:13→22:52)
[2022-01-22] MEDS: NICOTINE 21 MG/24 HOURS TOPICAL PATCH TD SCH (11:14)
[2022-01-22] MEDS: PRENATAL VITAMINS W/ FOLIC ACID TABLET (FP) PO SCH (11:14)
[2022-01-22] MEDS: OFLOXACIN 0.3% OPHTHALMIC SOLUTION 5 ML BOTTLE OS SCH (19:10)
[2022-01-22] MEDS: THIAMINE HCL 100 MG TABLET (FP) PO SCH (22:52)
[2022-01-22] MEDS: MELATONIN 5 MG TABLETS PO SCH (22:52)
[2022-01-23] MEDS: OFLOXACIN 0.3% OPHTHALMIC SOLUTION 5 ML BOTTLE OS SCH ×5 (01:13→22:44)
[2022-01-23] MEDS: PRENATAL VITAMINS W/ FOLIC ACID TABLET (FP) PO SCH (10:57)
[2022-01-23] MEDS: NICOTINE 21 MG/24 HOURS TOPICAL PATCH TD SCH (10:58)
[2022-01-23] MEDS: METHOCARBAMOL 500 MG TABLET PO PRN (22:07)
[2022-01-23] MEDS: MELATONIN 5 MG TABLETS PO SCH (22:07)
[2022-01-23] MEDS: THIAMINE HCL 100 MG TABLET (FP) PO SCH (22:07)
[2022-01-24] MEDS ORDERED: methaDONE HCL 10 MG TABLET (FOR DETOX USE ONLY) PO ONE (10:00)
[2022-01-24] MEDS: METHOCARBAMOL 500 MG TABLET PO PRN (10:08)
[2022-01-24] MEDS: PRENATAL VITAMINS W/ FOLIC ACID TABLET (FP) PO SCH (10:08)
[2022-01-24] MEDS: OFLOXACIN 0.3% OPHTHALMIC SOLUTION 5 ML BOTTLE OS SCH ×3 (10:08→16:40)
[2022-01-24] MEDS: NICOTINE 21 MG/24 HOURS TOPICAL PATCH TD SCH (10:09)
[2022-01-24 17:57] VITALS: BP 134/70; PULSE 65; RESP 18; TEMP 97.1
== END 2022-01-24 18:19 | disposition left against medical advice (07) | DRG 770 ==
LOC: YASAS 22:40 → Y6N 01-20 01:41
PROVIDERS: ADMIT Surgery; ATTEND Surgery
PROC: HZ2ZZZZ Detoxification Services for Substance Abuse Treatment (ICD-10-PCS; principal; 2022-01-20)
DX: F11.23 Opioid dependence with withdrawal (principal); F13.230 Sedative, hypnotic or anxiolytic dependence with withdrawal, uncomplicated; F12.10 Cannabis abuse, uncomplicated; F17.210 Nicotine dependence, cigarettes, uncomplicated; I10 Essential (primary) hypertension; E78.5 Hyperlipidemia, unspecified; M19.90 Unspecified osteoarthritis, unspecified site; M54.59 Other low back pain; G89.29 Other chronic pain; Z56.0 Unemployment, unspecified; Z59.00 Homelessness unspecified
CPT/HCPCS: 36415; 80053; 82962; 85027; 86780; 87811; C9803-CS; U0003; U0005

== ENCOUNTER 2022-03-08 11:14 | Inpatient (IN) | payer OTHER ==
[2022-03-08 13:07] VITALS: BMI 21.9
[2022-03-08] MEDS ORDERED: ACETAMINOPHEN 325 MG TABLET (FP) PO PRN ×2 (13:35)
[2022-03-08] MEDS ORDERED: IBUPROFEN 600 MG TABLET (FP) PO PRN (13:35)
[2022-03-08] MEDS ORDERED: cloNIDine HCL 0.1 MG TABLET PO PRN (13:35)
[2022-03-08] MEDS ORDERED: NICOTINE 10 MG CARTRIDGE (INHALER) IH PRN (13:35)
[2022-03-08] MEDS ORDERED: MAGNESIUM CITRATE 300 ML BOTTLE PO PRN (13:35)
[2022-03-08] MEDS ORDERED: ONDANSETRON *ODT* 4 MG TABLET SL PRN (13:35)
[2022-03-08] MEDS ORDERED: DICYCLOMINE HCL 10 MG CAPSULE PO PRN (13:35)
[2022-03-08] MEDS ORDERED: MAGNESIUM HYDROX 2400MG/30ML ORAL SUSPENSION 30 ML CUP PO PRN (13:35)
[2022-03-08] MEDS ORDERED: NALOXONE HCL (KLOXXADO) 8 MG SPRAY NS PRN (13:35)
[2022-03-08] MEDS ORDERED: LOPERAMIDE HCL 2 MG CAPSULE PO PRN (13:35)
[2022-03-08] MEDS ORDERED: MAG HYDROX/AL HYDROX/SIMETH 30 ML UNIT-DOSE CUP PO PRN (13:35)
[2022-03-08] MEDS ORDERED: BISMUTH SUBSALICYLATE 524 MG/30 ML PO PRN (13:35)
[2022-03-08] MEDS ORDERED: IBUPROFEN 400 MG TABLET (FP) PO PRN (13:35)
[2022-03-08] MEDS ORDERED: hydrOXYzine PAMOATE 25 MG CAPSULE (FP) PO PRN (13:35)
[2022-03-08] MEDS ORDERED: BENZOCAINE/MENTHOL (CHLORASEPTIC ) LOZENGE MM PRN (13:35)
[2022-03-08] MEDS ORDERED: methaDONE HCL 10 MG TABLET (FOR DETOX USE ONLY) PO ONE (14:15)
[2022-03-08] MEDS: NICOTINE 14 MG/24 HOURS TOPICAL PATCH TD SCH (14:15)
[2022-03-08] MEDS: PRENATAL VITAMINS W/ FOLIC ACID TABLET (FP) PO SCH (14:15)
[2022-03-08] MEDS: MELATONIN 5 MG TABLETS PO SCH (23:17)
[2022-03-08] MEDS: THIAMINE HCL 100 MG TABLET (FP) PO SCH (23:17)
[2022-03-09] MEDS: PRENATAL VITAMINS W/ FOLIC ACID TABLET (FP) PO SCH (11:24)
[2022-03-09] MEDS: NICOTINE 14 MG/24 HOURS TOPICAL PATCH TD SCH (11:25)
[2022-03-09 14:21] LABS: HEMATOCRIT 36.5 % (35.4-49); HEMOGLOBIN 12.2 GM/dL (11.7-16.9); MCH 28.1 pg (25.7-33.7); MCHC 33.4 g/dl (32.0-35.9); MEAN PLT VOLUME 7.2 fl (7.5-11.1); PLATELET COUNT 292 10^3/uL (134-434); RBC 4.35 M/mm3 (4.00-5.60); WHITE BLOOD COUNT 7.7 K/mm3 (4.0-10.0)
[2022-03-09 16:05] LABS: CALCIUM 8.6 mg/dL (8.5-10.1)
[2022-03-09 16:06] LABS: BLOOD UREA NITROGEN 17.8 mg/dL (7-18)
[2022-03-09 16:09] LABS: BILIRUBIN,TOTAL 0.2 mg/dL (0.2-1); CREATININE 0.7 mg/dL (0.55-1.3); TOT PROT 6.2 g/dl (6.4-8.2)
[2022-03-09] MEDS: THIAMINE HCL 100 MG TABLET (FP) PO SCH ×2 (22:38→23:47)
[2022-03-09] MEDS: MELATONIN 5 MG TABLETS PO SCH ×2 (22:38→23:46)
[2022-03-09] MEDS: METHOCARBAMOL 500 MG TABLET PO PRN (23:45)
[2022-03-10] MEDS ORDERED: methaDONE HCL 10 MG TABLET (FOR DETOX USE ONLY) PO ONE (10:00)
[2022-03-10] MEDS: PRENATAL VITAMINS W/ FOLIC ACID TABLET (FP) PO SCH (10:40)
[2022-03-10] MEDS: NICOTINE 14 MG/24 HOURS TOPICAL PATCH TD SCH (10:42)
[2022-03-10] MEDS: MELATONIN 5 MG TABLETS PO SCH (22:33)
[2022-03-10] MEDS: THIAMINE HCL 100 MG TABLET (FP) PO SCH (22:34)
[2022-03-11] MEDS: PRENATAL VITAMINS W/ FOLIC ACID TABLET (FP) PO SCH (10:37)
[2022-03-11] MEDS: METHOCARBAMOL 500 MG TABLET PO PRN (10:37)
[2022-03-11] MEDS: NICOTINE 14 MG/24 HOURS TOPICAL PATCH TD SCH (10:37)
[2022-03-11] MEDS: MELATONIN 5 MG TABLETS PO SCH (22:35)
[2022-03-11] MEDS: THIAMINE HCL 100 MG TABLET (FP) PO SCH (22:35)
[2022-03-12] MEDS ORDERED: methaDONE HCL 10 MG TABLET (FOR DETOX USE ONLY) PO ONE (10:00)
[2022-03-12] MEDS: NICOTINE 14 MG/24 HOURS TOPICAL PATCH TD SCH (10:51)
[2022-03-12] MEDS: PRENATAL VITAMINS W/ FOLIC ACID TABLET (FP) PO SCH (10:52)
[2022-03-12] MEDS: MELATONIN 5 MG TABLETS PO SCH (22:36)
[2022-03-12] MEDS: THIAMINE HCL 100 MG TABLET (FP) PO SCH (22:37)
[2022-03-13 08:18] VITALS: RESP 18
[2022-03-13 08:49] VITALS: BP 130/83; PULSE 93; TEMP 97.8
== END 2022-03-13 09:17 | disposition home or self-care (01) | DRG 773 ==
LOC: YASAS 11:14 → Y3N 13:43
PROVIDERS: ADMIT Allergy & Immunology; ATTEND Surgery
PROC: HZ2ZZZZ Detoxification Services for Substance Abuse Treatment (ICD-10-PCS; principal; 2022-03-09)
DX: F11.23 Opioid dependence with withdrawal (principal); F14.20 Cocaine dependence, uncomplicated; F15.10 Other stimulant abuse, uncomplicated; F12.20 Cannabis dependence, uncomplicated; F17.210 Nicotine dependence, cigarettes, uncomplicated; E78.5 Hyperlipidemia, unspecified; I10 Essential (primary) hypertension; M54.50 Low back pain, unspecified; G89.29 Other chronic pain; Z56.0 Unemployment, unspecified; Z59.00 Homelessness unspecified
CPT/HCPCS: 36415; 80053; 85027; 86780; C9803-CS; U0003; U0005

== ENCOUNTER 2022-04-16 13:08 | Inpatient (IN) | payer OTHER ==
[2022-04-16 13:55] VITALS: BMI 22.8
[2022-04-16] MEDS ORDERED: DICYCLOMINE HCL 10 MG CAPSULE PO PRN (18:12)
[2022-04-16] MEDS ORDERED: NICOTINE 10 MG CARTRIDGE (INHALER) IH PRN (18:12)
[2022-04-16] MEDS ORDERED: MAGNESIUM HYDROX 2400MG/30ML ORAL SUSPENSION 30 ML CUP PO PRN (18:12)
[2022-04-16] MEDS ORDERED: NALOXONE HCL (KLOXXADO) 8 MG SPRAY NS PRN (18:12)
[2022-04-16] MEDS ORDERED: MAG HYDROX/AL HYDROX/SIMETH 30 ML UNIT-DOSE CUP PO PRN (18:12)
[2022-04-16] MEDS ORDERED: BENZOCAINE/MENTHOL (CHLORASEPTIC ) LOZENGE MM PRN (18:12)
[2022-04-16] MEDS ORDERED: ACETAMINOPHEN 325 MG TABLET (FP) PO PRN (18:12)
[2022-04-16] MEDS ORDERED: ONDANSETRON *ODT* 4 MG TABLET SL PRN (18:12)
[2022-04-16] MEDS ORDERED: BISMUTH SUBSALICYLATE 524 MG/30 ML PO PRN (18:12)
[2022-04-16] MEDS ORDERED: hydrOXYzine PAMOATE 25 MG CAPSULE (FP) PO PRN (18:12)
[2022-04-16] MEDS ORDERED: IBUPROFEN 400 MG TABLET (FP) PO PRN (18:12)
[2022-04-16] MEDS ORDERED: LOPERAMIDE HCL 2 MG CAPSULE PO PRN (18:12)
[2022-04-16] MEDS ORDERED: POLYETHYLENE GLYCOL (HEALTHYLAX) 3350 17 GM PACKET PO PRN (18:12)
[2022-04-16] MEDS: IBUPROFEN 600 MG TABLET (FP) PO PRN (19:18)
[2022-04-16] MEDS ORDERED: IBUPROFEN 600 MG TABLET (FP) PO ONE (19:21)
[2022-04-16] MEDS: THIAMINE HCL 100 MG TABLET (FP) PO SCH (22:26)
[2022-04-16] MEDS: MELATONIN 5 MG TABLETS PO SCH (22:26)
[2022-04-17] MEDS ORDERED: cloNIDine HCL 0.1 MG TABLET PO PRN (09:23)
[2022-04-17] MEDS ORDERED: diazePAM 5 MG TABLET PO PRN (09:24)
[2022-04-17] MEDS ORDERED: methaDONE HCL 10 MG TABLET (FOR DETOX USE ONLY) PO ONE (10:00)
[2022-04-17] MEDS: PRENATAL VITAMINS W/ FOLIC ACID TABLET (FP) PO SCH (10:29)
[2022-04-17 10:51] LABS: HEMATOCRIT 37.6 % (35.4-49); HEMOGLOBIN 12.3 GM/dL (11.7-16.9); MCH 27.5 pg (25.7-33.7); MCHC 32.7 g/dl (32.0-35.9); MEAN PLT VOLUME 7.4 fl (7.5-11.1); PLATELET COUNT 348 10^3/uL (134-434); RBC 4.47 M/mm3 (4.00-5.60); RDW 15.7 % (11.9-15.9); WHITE BLOOD COUNT 9.5 K/mm3 (4.0-10.0)
[2022-04-17 11:01] LABS: CALCIUM 8.7 mg/dL (8.5-10.1)
[2022-04-17 11:04] LABS: CREATININE 0.6 mg/dL (0.55-1.3)
[2022-04-17 11:06] LABS: TOT PROT 6.2 g/dl (6.4-8.2)
[2022-04-17 12:07] LABS: BILIRUBIN,TOTAL 0.2 mg/dL (0.2-1)
[2022-04-17] MEDS: MELATONIN 5 MG TABLETS PO SCH (22:24)
[2022-04-17] MEDS: THIAMINE HCL 100 MG TABLET (FP) PO SCH (22:24)
[2022-04-17] MEDS: METHOCARBAMOL 500 MG TABLET PO PRN (22:25)
[2022-04-18] MEDS: PRENATAL VITAMINS W/ FOLIC ACID TABLET (FP) PO SCH (09:27)
[2022-04-18] MEDS: MELATONIN 5 MG TABLETS PO SCH (22:17)
[2022-04-18] MEDS: IBUPROFEN 600 MG TABLET (FP) PO PRN (22:17)
[2022-04-18] MEDS: THIAMINE HCL 100 MG TABLET (FP) PO SCH (22:17)
[2022-04-18] MEDS: ACETAMINOPHEN 325 MG TABLET (FP) PO PRN (23:54)
[2022-04-18] MEDS: METHOCARBAMOL 500 MG TABLET PO PRN (23:54)
[2022-04-19] MEDS ORDERED: methaDONE HCL 10 MG TABLET (FOR DETOX USE ONLY) PO ONE (10:00)
[2022-04-19] MEDS: PRENATAL VITAMINS W/ FOLIC ACID TABLET (FP) PO SCH (10:13)
[2022-04-19] MEDS: IBUPROFEN 600 MG TABLET (FP) PO PRN ×2 (13:52→22:16)
[2022-04-19] MEDS: ACETAMINOPHEN 325 MG TABLET (FP) PO PRN (17:10)
[2022-04-19] MEDS: METHOCARBAMOL 500 MG TABLET PO PRN (22:16)
[2022-04-19] MEDS: MELATONIN 5 MG TABLETS PO SCH (22:16)
[2022-04-19] MEDS: THIAMINE HCL 100 MG TABLET (FP) PO SCH (22:16)
[2022-04-20] MEDS: ACETAMINOPHEN 325 MG TABLET (FP) PO PRN ×2 (02:14→20:24)
[2022-04-20] MEDS: PRENATAL VITAMINS W/ FOLIC ACID TABLET (FP) PO SCH (10:06)
[2022-04-20] MEDS: MELATONIN 5 MG TABLETS PO SCH (22:09)
[2022-04-20] MEDS: METHOCARBAMOL 500 MG TABLET PO PRN (22:09)
[2022-04-20] MEDS: THIAMINE HCL 100 MG TABLET (FP) PO SCH (22:09)
[2022-04-20] MEDS: IBUPROFEN 600 MG TABLET (FP) PO PRN (22:10)
[2022-04-21] MEDS ORDERED: methaDONE HCL 10 MG TABLET (FOR DETOX USE ONLY) PO ONE (10:00)
[2022-04-21] MEDS: PRENATAL VITAMINS W/ FOLIC ACID TABLET (FP) PO SCH (10:10)
[2022-04-21] MEDS: METHOCARBAMOL 500 MG TABLET PO PRN ×2 (10:10→22:03)
[2022-04-21] MEDS: IBUPROFEN 600 MG TABLET (FP) PO PRN (18:05)
[2022-04-21] MEDS: THIAMINE HCL 100 MG TABLET (FP) PO SCH (22:03)
[2022-04-21] MEDS: MELATONIN 5 MG TABLETS PO SCH (22:03)
[2022-04-22] MEDS: PRENATAL VITAMINS W/ FOLIC ACID TABLET (FP) PO SCH (09:30)
[2022-04-22 09:36] VITALS: BP 126/75; PULSE 62; RESP 16; TEMP 97.5
== END 2022-04-22 09:47 | disposition home or self-care (01) | DRG 773 ==
LOC: YASAS 13:08 → UNDOADMIN 19:02 → Y3N 19:02
PROVIDERS: ADMIT Allergy & Immunology; ATTEND Surgery
PROC: HZ2ZZZZ Detoxification Services for Substance Abuse Treatment (ICD-10-PCS; principal; 2022-04-16)
DX: F11.23 Opioid dependence with withdrawal (principal); F15.20 Other stimulant dependence, uncomplicated; F17.210 Nicotine dependence, cigarettes, uncomplicated; E78.5 Hyperlipidemia, unspecified; I10 Essential (primary) hypertension; M16.12 Unilateral primary osteoarthritis, left hip; M54.50 Low back pain, unspecified; G89.29 Other chronic pain; Z59.00 Homelessness unspecified
CPT/HCPCS: 36415; 80053; 85027; 86780; C9803-CS; U0003; U0005

== ENCOUNTER 2022-06-12 14:19 | Inpatient (IN) | payer OTHER ==
[2022-06-12 15:35] VITALS: BMI 22.8
[2022-06-12] MEDS ORDERED: methaDONE HCL 10 MG TABLET (FOR DETOX USE ONLY) PO ONE (16:44)
[2022-06-12] MEDS ORDERED: NICOTINE 10 MG CARTRIDGE (INHALER) IH PRN (16:44)
[2022-06-12] MEDS ORDERED: LOPERAMIDE HCL 2 MG CAPSULE PO PRN (16:44)
[2022-06-12] MEDS ORDERED: cloNIDine HCL 0.1 MG TABLET PO PRN (16:44)
[2022-06-12] MEDS ORDERED: BISMUTH SUBSALICYLATE 524 MG/30 ML PO PRN (16:44)
[2022-06-12] MEDS ORDERED: METHOCARBAMOL 500 MG TABLET PO PRN (16:44)
[2022-06-12] MEDS ORDERED: POLYETHYLENE GLYCOL (HEALTHYLAX) 3350 17 GM PACKET PO PRN (16:44)
[2022-06-12] MEDS ORDERED: NALOXONE HCL (KLOXXADO) 8 MG SPRAY NS PRN (16:44)
[2022-06-12] MEDS ORDERED: MAGNESIUM HYDROX 2400MG/30ML ORAL SUSPENSION 30 ML CUP PO PRN (16:44)
[2022-06-12] MEDS ORDERED: ACETAMINOPHEN 325 MG TABLET (FP) PO PRN ×2 (16:44)
[2022-06-12] MEDS ORDERED: IBUPROFEN 400 MG TABLET (FP) PO PRN (16:44)
[2022-06-12] MEDS ORDERED: IBUPROFEN 600 MG TABLET (FP) PO PRN (16:44)
[2022-06-12] MEDS ORDERED: BENZOCAINE/MENTHOL (CHLORASEPTIC ) LOZENGE MM PRN (16:44)
[2022-06-12] MEDS ORDERED: DICYCLOMINE HCL 10 MG CAPSULE PO PRN (16:44)
[2022-06-12] MEDS ORDERED: MAG HYDROX/AL HYDROX/SIMETH 30 ML UNIT-DOSE CUP PO PRN (16:44)
[2022-06-12] MEDS ORDERED: methaDONE HCL 10 MG TABLET (FOR DETOX USE ONLY) ONE (17:43)
[2022-06-12] MEDS: THIAMINE HCL 100 MG TABLET (FP) PO SCH (22:27)
[2022-06-12] MEDS: MELATONIN 5 MG TABLETS PO SCH (22:27)
[2022-06-13] MEDS: PRENATAL VITAMINS W/ FOLIC ACID TABLET (FP) PO SCH (09:55)
[2022-06-13] MEDS: NICOTINE 7 MG/24 HOURS TOPICAL PATCH TD SCH ×2 (09:55→10:00)
[2022-06-13 11:32] LABS: MCH 27.7 pg (25.7-33.7); MCHC 33.2 g/dl (32.0-35.9); MEAN CELL VOLUME 83.4 fl (80-96); MEAN PLT VOLUME 7.9 fl (7.5-11.1); PLATELET COUNT 269 10^3/uL (134-434); RBC 4.32 M/mm3 (4.00-5.60); RDW 15.6 % (11.9-15.9); WHITE BLOOD COUNT 6.7 K/mm3 (4.0-10.0)
[2022-06-13 12:05] LABS: CALCIUM 8.7 mg/dL (8.5-10.1)
[2022-06-13 12:06] LABS: BLOOD UREA NITROGEN 17.6 mg/dL (7-18)
[2022-06-13 12:09] LABS: CREATININE 0.7 mg/dL (0.55-1.3)
[2022-06-13 12:10] LABS: TOT PROT 6.6 g/dl (6.4-8.2)
[2022-06-13 12:11] LABS: BILIRUBIN,TOTAL 0.3 mg/dL (0.2-1)
[2022-06-13] MEDS: MELATONIN 5 MG TABLETS PO SCH (22:22)
[2022-06-13] MEDS: THIAMINE HCL 100 MG TABLET (FP) PO SCH (22:22)
[2022-06-14] MEDS ORDERED: methaDONE HCL 10 MG TABLET (FOR DETOX USE ONLY) PO ONE (10:00)
[2022-06-14] MEDS: PRENATAL VITAMINS W/ FOLIC ACID TABLET (FP) PO SCH (10:26)
[2022-06-14] MEDS: NICOTINE 7 MG/24 HOURS TOPICAL PATCH TD SCH (10:29)
[2022-06-14] MEDS: MELATONIN 5 MG TABLETS PO SCH (22:35)
[2022-06-14] MEDS: THIAMINE HCL 100 MG TABLET (FP) PO SCH (22:36)
[2022-06-15 06:07] VITALS: RESP 16
[2022-06-15] MEDS: PRENATAL VITAMINS W/ FOLIC ACID TABLET (FP) PO SCH (10:27)
[2022-06-15] MEDS: NICOTINE 7 MG/24 HOURS TOPICAL PATCH TD SCH (10:52)
[2022-06-15 13:14] VITALS: BP 112/61; PULSE 54; TEMP 97.3
[2022-06-16] MEDS ORDERED: methaDONE HCL 10 MG TABLET (FOR DETOX USE ONLY) PO ONE (10:00)
== END 2022-06-15 18:12 | disposition left against medical advice (07) | DRG 770 ==
LOC: YASAS 14:19 → Y3N 18:02
PROVIDERS: ADMIT Allergy & Immunology; ATTEND Family Medicine
PROC: HZ2ZZZZ Detoxification Services for Substance Abuse Treatment (ICD-10-PCS; principal; 2022-06-12)
DX: F11.23 Opioid dependence with withdrawal (principal); F12.20 Cannabis dependence, uncomplicated; U07.1 COVID-19; E78.2 Mixed hyperlipidemia; I10 Essential (primary) hypertension; M16.12 Unilateral primary osteoarthritis, left hip; M54.50 Low back pain, unspecified; G89.29 Other chronic pain; Z59.00 Homelessness unspecified
CPT/HCPCS: 36415; 80053; 85027; 86593; 86780; 87811; C9803-CS; U0003; U0005

== ENCOUNTER 2022-07-14 22:39 | Inpatient (IN) | payer OTHER ==
[2022-07-14 23:24] VITALS: BMI 23.1
[2022-07-15] MEDS ORDERED: cloNIDine HCL 0.1 MG TABLET PO PRN (02:20)
[2022-07-15] MEDS ORDERED: IBUPROFEN 400 MG TABLET (FP) PO PRN (02:20)
[2022-07-15] MEDS ORDERED: ACETAMINOPHEN 325 MG TABLET (FP) PO PRN ×2 (02:20)
[2022-07-15] MEDS ORDERED: BISMUTH SUBSALICYLATE 524 MG/30 ML PO PRN (02:20)
[2022-07-15] MEDS ORDERED: POLYETHYLENE GLYCOL (HEALTHYLAX) 3350 17 GM PACKET PO PRN (02:20)
[2022-07-15] MEDS ORDERED: NALOXONE HCL (KLOXXADO) 8 MG SPRAY NS PRN (02:20)
[2022-07-15] MEDS ORDERED: MAGNESIUM HYDROX 2400MG/30ML ORAL SUSPENSION 30 ML CUP PO PRN (02:20)
[2022-07-15] MEDS ORDERED: BENZOCAINE/MENTHOL (CHLORASEPTIC ) LOZENGE MM PRN (02:20)
[2022-07-15] MEDS ORDERED: ONDANSETRON *ODT* 4 MG TABLET SL PRN (02:20)
[2022-07-15] MEDS ORDERED: MAG HYDROX/AL HYDROX/SIMETH 30 ML UNIT-DOSE CUP PO PRN (02:20)
[2022-07-15] MEDS ORDERED: NICOTINE 10 MG CARTRIDGE (INHALER) IH PRN (02:20)
[2022-07-15] MEDS ORDERED: DICYCLOMINE HCL 10 MG CAPSULE PO PRN (02:20)
[2022-07-15] MEDS ORDERED: LOPERAMIDE HCL 2 MG CAPSULE PO PRN (02:20)
[2022-07-15] MEDS ORDERED: methaDONE HCL 10 MG TABLET (FOR DETOX USE ONLY) PO ONE (04:00)
[2022-07-15] MEDS: NICOTINE 21 MG/24 HOURS TOPICAL PATCH TD SCH (10:59)
[2022-07-15] MEDS: PRENATAL VITAMINS W/ FOLIC ACID TABLET (FP) PO SCH (10:59)
[2022-07-15] MEDS: IBUPROFEN 600 MG TABLET (FP) PO PRN (19:36)
[2022-07-15] MEDS: MELATONIN 5 MG TABLETS PO SCH (22:05)
[2022-07-15] MEDS: THIAMINE HCL 100 MG TABLET (FP) PO SCH (22:07)
[2022-07-15] MEDS: METHOCARBAMOL 500 MG TABLET PO PRN (22:07)
[2022-07-16] MEDS: PRENATAL VITAMINS W/ FOLIC ACID TABLET (FP) PO SCH (10:53)
[2022-07-16] MEDS: NICOTINE 21 MG/24 HOURS TOPICAL PATCH TD SCH (10:55)
[2022-07-16 13:50] LABS: ALBUMIN 3.2 g/dl (3.4-5.0); BLOOD UREA NITROGEN 24.7 mg/dL (7-18); CALCIUM 8.4 mg/dL (8.5-10.1)
[2022-07-16 13:53] LABS: CREATININE 0.8 mg/dL (0.55-1.3)
[2022-07-16 13:55] LABS: BILIRUBIN,TOTAL 0.5 mg/dL (0.2-1); TOT PROT 6.5 g/dl (6.4-8.2)
[2022-07-16] MEDS: IBUPROFEN 600 MG TABLET (FP) PO PRN (16:45)
[2022-07-16] MEDS: CHLORHEXIDINE GLUCONATE 0.12% 15ML CUP MM SCH (22:06)
[2022-07-16] MEDS: THIAMINE HCL 100 MG TABLET (FP) PO SCH (22:06)
[2022-07-16] MEDS: AMOXICILLIN 500 MG CAPSULE (FP) PO SCH (22:06)
[2022-07-16] MEDS: MELATONIN 5 MG TABLETS PO SCH (22:08)
[2022-07-17] MEDS ORDERED: methaDONE HCL 10 MG TABLET (FOR DETOX USE ONLY) PO ONE (10:00)
[2022-07-17] MEDS: CHLORHEXIDINE GLUCONATE 0.12% 15ML CUP MM SCH ×2 (10:39→23:41)
[2022-07-17] MEDS: PRENATAL VITAMINS W/ FOLIC ACID TABLET (FP) PO SCH (10:39)
[2022-07-17] MEDS: AMOXICILLIN 500 MG CAPSULE (FP) PO SCH ×2 (10:39→22:20)
[2022-07-17] MEDS: NICOTINE 21 MG/24 HOURS TOPICAL PATCH TD SCH (10:40)
[2022-07-17] MEDS: IBUPROFEN 600 MG TABLET (FP) PO PRN (13:43)
[2022-07-17] MEDS: THIAMINE HCL 100 MG TABLET (FP) PO SCH (22:20)
[2022-07-17] MEDS: MELATONIN 5 MG TABLETS PO SCH (22:20)
[2022-07-18] MEDS: CHLORHEXIDINE GLUCONATE 0.12% 15ML CUP MM SCH ×2 (10:24→22:41)
[2022-07-18] MEDS: AMOXICILLIN 500 MG CAPSULE (FP) PO SCH ×2 (10:24→22:40)
[2022-07-18] MEDS: NICOTINE 21 MG/24 HOURS TOPICAL PATCH TD SCH (10:24)
[2022-07-18] MEDS: PRENATAL VITAMINS W/ FOLIC ACID TABLET (FP) PO SCH (10:25)
[2022-07-18] MEDS: IBUPROFEN 600 MG TABLET (FP) PO PRN ×2 (14:24→20:11)
[2022-07-18] MEDS: METHOCARBAMOL 500 MG TABLET PO PRN (14:24)
[2022-07-18] MEDS: MELATONIN 5 MG TABLETS PO SCH (22:40)
[2022-07-18] MEDS: THIAMINE HCL 100 MG TABLET (FP) PO SCH (22:41)
[2022-07-19] MEDS ORDERED: methaDONE HCL 10 MG TABLET (FOR DETOX USE ONLY) PO ONE (10:00)
[2022-07-19] MEDS: METHOCARBAMOL 500 MG TABLET PO PRN (10:32)
[2022-07-19] MEDS: PRENATAL VITAMINS W/ FOLIC ACID TABLET (FP) PO SCH (10:32)
[2022-07-19] MEDS: AMOXICILLIN 500 MG CAPSULE (FP) PO SCH (10:32)
[2022-07-19] MEDS: NICOTINE 21 MG/24 HOURS TOPICAL PATCH TD SCH (10:33)
[2022-07-19] MEDS: CHLORHEXIDINE GLUCONATE 0.12% 15ML CUP MM SCH ×2 (10:33→22:23)
[2022-07-19] MEDS: THIAMINE HCL 100 MG TABLET (FP) PO SCH (22:23)
[2022-07-19] MEDS: MELATONIN 5 MG TABLETS PO SCH (22:23)
[2022-07-20 09:34] VITALS: BP 112/63; PULSE 63; RESP 17; TEMP 97.5
[2022-07-20] MEDS: NICOTINE 21 MG/24 HOURS TOPICAL PATCH TD SCH (09:50)
[2022-07-20] MEDS: CHLORHEXIDINE GLUCONATE 0.12% 15ML CUP MM SCH (09:50)
[2022-07-20] MEDS: PRENATAL VITAMINS W/ FOLIC ACID TABLET (FP) PO SCH (09:50)
== END 2022-07-20 09:39 | disposition home or self-care (01) | DRG 773 ==
LOC: YASAS 22:39 → Y6N 07-15 02:55
PROVIDERS: ADMIT Allergy & Immunology; ATTEND Surgery
PROC: HZ2ZZZZ Detoxification Services for Substance Abuse Treatment (ICD-10-PCS; principal; 2022-07-15)
DX: F11.23 Opioid dependence with withdrawal (principal); F12.20 Cannabis dependence, uncomplicated; F15.10 Other stimulant abuse, uncomplicated; F17.210 Nicotine dependence, cigarettes, uncomplicated; E78.5 Hyperlipidemia, unspecified; I10 Essential (primary) hypertension; M16.12 Unilateral primary osteoarthritis, left hip; M54.50 Low back pain, unspecified; G89.29 Other chronic pain; Z86.19 Personal history of other infectious and parasitic diseases
CPT/HCPCS: 36415; 80053; 86593; 86780; 87811; C9803-CS; U0003; U0005

== ENCOUNTER 2022-09-22 23:22 | Inpatient (IN) | payer OTHER ==
[2022-09-23 00:10] VITALS: BMI 24.3
[2022-09-23] MEDS ORDERED: LOPERAMIDE HCL 2 MG CAPSULE PO PRN (00:42)
[2022-09-23] MEDS ORDERED: POLYETHYLENE GLYCOL (HEALTHYLAX) 3350 17 GM PACKET PO PRN (00:42)
[2022-09-23] MEDS ORDERED: NICOTINE POLACRILEX 2 MG GUM BUC PRN (00:42)
[2022-09-23] MEDS ORDERED: IBUPROFEN 400 MG TABLET (FP) PO PRN (00:42)
[2022-09-23] MEDS ORDERED: BENZOCAINE/MENTHOL (CHLORASEPTIC ) LOZENGE MM PRN (00:42)
[2022-09-23] MEDS ORDERED: NALOXONE HCL 0.4 MG/ML VIAL IM PRN (00:42)
[2022-09-23] MEDS ORDERED: BENZONATATE 200 MG CAPSULE PO PRN (00:42)
[2022-09-23] MEDS ORDERED: DICYCLOMINE HCL 10 MG CAPSULE PO PRN (00:42)
[2022-09-23] MEDS ORDERED: guaiFENesin 600 MG TABLET.ER (FP) PO PRN (00:42)
[2022-09-23] MEDS ORDERED: ACETAMINOPHEN 325 MG TABLET (FP) PO PRN (00:42)
[2022-09-23] MEDS ORDERED: MAG HYDROX/AL HYDROX/SIMETH 30 ML UNIT-DOSE CUP PO PRN (00:42)
[2022-09-23] MEDS ORDERED: MAGNESIUM HYDROX 2400MG/30ML ORAL SUSPENSION 30 ML CUP PO PRN (00:42)
[2022-09-23] MEDS ORDERED: ONDANSETRON *ODT* 4 MG TABLET SL PRN (00:42)
[2022-09-23] MEDS ORDERED: BISMUTH SUBSALICYLATE 524 MG/30 ML PO PRN (00:42)
[2022-09-23] MEDS ORDERED: NALOXONE HCL (KLOXXADO) 8 MG SPRAY NS PRN (00:42)
[2022-09-23] MEDS: METHOCARBAMOL 500 MG TABLET PO PRN ×2 (02:11→19:56)
[2022-09-23] MEDS: IBUPROFEN 600 MG TABLET (FP) PO PRN ×2 (02:12→19:56)
[2022-09-23] MEDS ORDERED: MELATONIN 5 MG TABLETS PO ONE (02:14)
[2022-09-23] MEDS: NICOTINE 21 MG/24 HOURS TOPICAL PATCH TD SCH (10:41)
[2022-09-23] MEDS: PRENATAL VITAMINS W/ FOLIC ACID TABLET (FP) PO SCH (10:41)
[2022-09-23] MEDS ORDERED: MELATONIN 5 MG TABLETS PO SCH (22:00)
[2022-09-23] MEDS ORDERED: THIAMINE HCL 100 MG TABLET (FP) PO SCH (22:00)
[2022-09-24 09:40] VITALS: BP 130/77; PULSE 94; RESP 18; TEMP 97.3
[2022-09-24] MEDS: PRENATAL VITAMINS W/ FOLIC ACID TABLET (FP) PO SCH (11:09)
[2022-09-24] MEDS: NICOTINE 21 MG/24 HOURS TOPICAL PATCH TD SCH (11:09)
[2022-09-24] MEDS: METHOCARBAMOL 500 MG TABLET PO PRN (11:32)
== END 2022-09-24 13:20 | disposition home or self-care (01) | DRG 775 ==
LOC: YASAS 23:22 → UNDOADMIN 09-23 01:44 → Y6N 09-23 01:44 → UNDODISIN 09-24 13:20
PROVIDERS: ADMIT Allergy & Immunology; ATTEND Surgery
PROC: HZ2ZZZZ Detoxification Services for Substance Abuse Treatment (ICD-10-PCS; principal; 2022-09-23)
DX: F10.230 Alcohol dependence with withdrawal, uncomplicated (principal); F12.20 Cannabis dependence, uncomplicated; F17.210 Nicotine dependence, cigarettes, uncomplicated; E78.5 Hyperlipidemia, unspecified; I10 Essential (primary) hypertension; M16.12 Unilateral primary osteoarthritis, left hip; Z56.0 Unemployment, unspecified; Z59.00 Homelessness unspecified
CPT/HCPCS: 36415; 86593; 86780; C9803-CS; U0003; U0005

== ENCOUNTER 2023-03-01 18:05 | Inpatient (IN) | payer OTHER ==
[2023-03-01 19:54] VITALS: BMI 21.6
[2023-03-01] MEDS ORDERED: BENZOCAINE/MENTHOL (CHLORASEPTIC ) LOZENGE MM PRN (20:14)
[2023-03-01] MEDS ORDERED: ONDANSETRON *ODT* 4 MG TABLET SL PRN (20:14)
[2023-03-01] MEDS ORDERED: MAGNESIUM HYDROX 2400MG/30ML ORAL SUSPENSION 30 ML CUP PO PRN (20:14)
[2023-03-01] MEDS ORDERED: POLYETHYLENE GLYCOL (HEALTHYLAX) 3350 17 GM PACKET PO PRN (20:14)
[2023-03-01] MEDS ORDERED: ACETAMINOPHEN 325 MG TABLET (FP) PO PRN (20:14)
[2023-03-01] MEDS ORDERED: IBUPROFEN 400 MG TABLET (FP) PO PRN (20:14)
[2023-03-01] MEDS ORDERED: MAG HYDROX/AL HYDROX/SIMETH 30 ML UNIT-DOSE CUP PO PRN (20:14)
[2023-03-01] MEDS ORDERED: P-EPHED 60MG/TRIPROLIDI 2.5MG TABLET PO PRN (20:14)
[2023-03-01] MEDS ORDERED: LOPERAMIDE HCL 2 MG CAPSULE PO PRN (20:14)
[2023-03-01] MEDS ORDERED: BISMUTH SUBSALICYLATE 524 MG/30 ML PO PRN (20:14)
[2023-03-01] MEDS ORDERED: IBUPROFEN 600 MG TABLET (FP) PO PRN (20:14)
[2023-03-01] MEDS ORDERED: NALOXONE HCL 0.4 MG/ML VIAL IM PRN (20:14)
[2023-03-01] MEDS ORDERED: DICYCLOMINE HCL 10 MG CAPSULE PO PRN (20:14)
[2023-03-01] MEDS ORDERED: BENZONATATE 200 MG CAPSULE PO PRN (20:14)
[2023-03-01] MEDS ORDERED: NALOXONE HCL (KLOXXADO) 8 MG SPRAY NS PRN (20:14)
[2023-03-01] MEDS ORDERED: guaiFENesin 600 MG TABLET.ER (FP) PO PRN (20:14)
[2023-03-01] MEDS ORDERED: cloNIDine HCL 0.1 MG TABLET PO PRN (21:51)
[2023-03-01] MEDS ORDERED: methaDONE HCL 10 MG TABLET (FOR DETOX USE ONLY) PO ONE (22:00)
[2023-03-01] MEDS: MELATONIN 5 MG TABLETS PO SCH (22:03)
[2023-03-01] MEDS: METHOCARBAMOL 500 MG TABLET PO PRN (22:03)
[2023-03-01] MEDS: hydrOXYzine PAMOATE 25 MG CAPSULE (FP) PO PRN (22:03)
[2023-03-01] MEDS: THIAMINE HCL 100 MG TABLET (FP) PO SCH (22:03)
[2023-03-02] MEDS: hydrOXYzine PAMOATE 25 MG CAPSULE (FP) PO PRN (09:50)
[2023-03-02] MEDS: METHOCARBAMOL 500 MG TABLET PO PRN (09:50)
[2023-03-02] MEDS: PRENATAL VITAMINS W/ FOLIC ACID TABLET (FP) PO SCH (09:51)
[2023-03-02] MEDS ORDERED: diazePAM 5 MG TABLET PO PRN (10:42)
[2023-03-02 11:06] LABS: HEMOGLOBIN 13.3 GM/dL (11.7-16.9); MCH 29.3 pg (25.7-33.7); MEAN CELL VOLUME 83.6 fl (80-96); MEAN PLT VOLUME 7.6 fl (7.5-11.1); PLATELET COUNT 284 10^3/uL (134-434); RBC 4.55 M/mm3 (4.00-5.60); RDW 15.6 % (11.9-15.9); WHITE BLOOD COUNT 7.4 K/mm3 (4.0-10.0)
[2023-03-02 11:10] LABS: POTASSIUM 4.2 mmol/L (3.5-5.1)
[2023-03-02 11:12] LABS: CALCIUM 8.6 mg/dL (8.5-10.1)
[2023-03-02 11:14] LABS: ALBUMIN 3.5 g/dl (3.4-5.0); BLOOD UREA NITROGEN 16.2 mg/dL (7-18)
[2023-03-02 11:17] LABS: BILIRUBIN,TOTAL 0.4 mg/dL (0.2-1); CREATININE 0.7 mg/dL (0.55-1.3); TOT PROT 7.1 g/dl (6.4-8.2)
[2023-03-02] MEDS ORDERED: methaDONE HCL 10 MG TABLET (FOR DETOX USE ONLY) PO ONE (11:30)
[2023-03-02] MEDS: MELATONIN 5 MG TABLETS PO SCH (22:49)
[2023-03-02] MEDS: THIAMINE HCL 100 MG TABLET (FP) PO SCH (22:49)
[2023-03-03] MEDS ORDERED: methaDONE HCL 10 MG TABLET (FOR DETOX USE ONLY) PO ONE (10:00)
[2023-03-03] MEDS: PRENATAL VITAMINS W/ FOLIC ACID TABLET (FP) PO SCH (11:09)
[2023-03-03 21:02] VITALS: RESP 16
[2023-03-03] MEDS: THIAMINE HCL 100 MG TABLET (FP) PO SCH (21:54)
[2023-03-03] MEDS: MELATONIN 5 MG TABLETS PO SCH (21:54)
[2023-03-03] MEDS: METHOCARBAMOL 500 MG TABLET PO PRN (21:54)
[2023-03-03] MEDS: hydrOXYzine PAMOATE 25 MG CAPSULE (FP) PO PRN (21:54)
[2023-03-04 09:04] VITALS: BP 122/69; PULSE 60; TEMP 97.9
[2023-03-04] MEDS: PRENATAL VITAMINS W/ FOLIC ACID TABLET (FP) PO SCH (10:45)
== END 2023-03-04 11:15 | disposition home or self-care (01) | DRG 773 ==
LOC: YASAS 18:05 → Y3N 21:18
PROVIDERS: ADMIT Allergy & Immunology; ATTEND Surgery
PROC: HZ2ZZZZ Detoxification Services for Substance Abuse Treatment (ICD-10-PCS; principal; 2023-03-01)
DX: F11.23 Opioid dependence with withdrawal (principal); F12.20 Cannabis dependence, uncomplicated; F17.210 Nicotine dependence, cigarettes, uncomplicated; I10 Essential (primary) hypertension; E78.5 Hyperlipidemia, unspecified; M16.12 Unilateral primary osteoarthritis, left hip
CPT/HCPCS: 36415; 80053; 85027; 86593; 86780; 87635

== ENCOUNTER 2023-04-16 19:32 | Inpatient (IN) | payer OTHER ==
[2023-04-16 20:24] VITALS: BMI 22.1
[2023-04-17] MEDS ORDERED: NALOXONE HCL 0.4 MG/ML VIAL IM PRN
[2023-04-17] MEDS ORDERED: NICOTINE POLACRILEX 2 MG GUM BUC PRN
[2023-04-17] MEDS ORDERED: MAG HYDROX/AL HYDROX/SIMETH 30 ML UNIT-DOSE CUP PO PRN
[2023-04-17] MEDS ORDERED: ONDANSETRON *ODT* 4 MG TABLET SL PRN
[2023-04-17] MEDS ORDERED: DICYCLOMINE HCL 10 MG CAPSULE PO PRN
[2023-04-17] MEDS ORDERED: MAGNESIUM HYDROX 2400MG/30ML ORAL SUSPENSION 30 ML CUP PO PRN
[2023-04-17] MEDS ORDERED: NALOXONE HCL (KLOXXADO) 8 MG SPRAY NS PRN
[2023-04-17] MEDS ORDERED: POLYETHYLENE GLYCOL (HEALTHYLAX) 3350 17 GM PACKET PO PRN
[2023-04-17] MEDS ORDERED: guaiFENesin 600 MG TABLET.ER (FP) PO PRN
[2023-04-17] MEDS ORDERED: P-EPHED 60MG/TRIPROLIDI 2.5MG TABLET PO PRN
[2023-04-17] MEDS ORDERED: BENZONATATE 200 MG CAPSULE PO PRN
[2023-04-17] MEDS ORDERED: LOPERAMIDE HCL 2 MG CAPSULE PO PRN
[2023-04-17] MEDS ORDERED: BENZOCAINE/MENTHOL (CHLORASEPTIC ) LOZENGE MM PRN
[2023-04-17] MEDS ORDERED: IBUPROFEN 400 MG TABLET (FP) PO PRN
[2023-04-17] MEDS ORDERED: BISMUTH SUBSALICYLATE 524 MG/30 ML PO PRN
[2023-04-17] MEDS ORDERED: ACETAMINOPHEN 325 MG TABLET (FP) PO PRN
[2023-04-17] MEDS ORDERED: methaDONE HCL 10 MG TABLET (FOR DETOX USE ONLY) PO ONE (09:49)
[2023-04-17] MEDS: PRENATAL VITAMINS W/ FOLIC ACID TABLET (FP) PO SCH (10:31)
[2023-04-17] MEDS: METHOCARBAMOL 500 MG TABLET PO PRN (19:14)
[2023-04-17] MEDS: cloNIDine HCL 0.1 MG TABLET PO PRN (19:14)
[2023-04-17] MEDS: MELATONIN 5 MG TABLETS PO SCH (22:43)
[2023-04-17] MEDS: THIAMINE HCL 100 MG TABLET (FP) PO SCH (22:43)
[2023-04-18] MEDS: PRENATAL VITAMINS W/ FOLIC ACID TABLET (FP) PO SCH (10:26)
[2023-04-18 10:31] LABS: HEMATOCRIT 41.3 % (35.4-49); HEMOGLOBIN 13.4 GM/dL (11.7-16.9); MCH 27.9 pg (25.7-33.7); MCHC 32.5 g/dl (32.0-35.9); MEAN CELL VOLUME 85.6 fl (80-96); MEAN PLT VOLUME 7.5 fl (7.5-11.1); PLATELET COUNT 334 10^3/uL (134-434); RBC 4.82 M/mm3 (4.00-5.60); WHITE BLOOD COUNT 10.5 K/mm3 (4.0-10.0)
[2023-04-18 12:10] LABS: POTASSIUM 3.7 mmol/L (3.5-5.1)
[2023-04-18 12:13] LABS: CALCIUM 8.9 mg/dL (8.5-10.1)
[2023-04-18 12:14] LABS: ALBUMIN 3.3 g/dl (3.4-5.0); BLOOD UREA NITROGEN 10.5 mg/dL (7-18)
[2023-04-18 12:17] LABS: CREATININE 0.7 mg/dL (0.55-1.3)
[2023-04-18 12:19] LABS: BILIRUBIN,TOTAL 0.4 mg/dL (0.2-1); TOT PROT 7.1 g/dl (6.4-8.2)
[2023-04-18] MEDS: THIAMINE HCL 100 MG TABLET (FP) PO SCH (23:41)
[2023-04-18] MEDS: MELATONIN 5 MG TABLETS PO SCH (23:41)
[2023-04-19] MEDS ORDERED: methaDONE HCL 10 MG TABLET (FOR DETOX USE ONLY) PO ONE (10:00)
[2023-04-19] MEDS: PRENATAL VITAMINS W/ FOLIC ACID TABLET (FP) PO SCH (10:41)
[2023-04-19] MEDS: METHOCARBAMOL 500 MG TABLET PO PRN (10:42)
[2023-04-19] MEDS: hydrOXYzine PAMOATE 25 MG CAPSULE (FP) PO PRN (10:42)
[2023-04-19] MEDS: cloNIDine HCL 0.1 MG TABLET PO PRN (10:42)
[2023-04-19] MEDS: MELATONIN 5 MG TABLETS PO SCH (22:41)
[2023-04-19] MEDS: THIAMINE HCL 100 MG TABLET (FP) PO SCH (22:41)
[2023-04-20] MEDS: PRENATAL VITAMINS W/ FOLIC ACID TABLET (FP) PO SCH (10:45)
[2023-04-20] MEDS: METHOCARBAMOL 500 MG TABLET PO PRN ×2 (10:47→22:18)
[2023-04-20] MEDS: IBUPROFEN 600 MG TABLET (FP) PO PRN ×2 (12:29→22:18)
[2023-04-20] MEDS: MELATONIN 5 MG TABLETS PO SCH (22:17)
[2023-04-20] MEDS: THIAMINE HCL 100 MG TABLET (FP) PO SCH (22:18)
[2023-04-20] MEDS: hydrOXYzine PAMOATE 25 MG CAPSULE (FP) PO PRN (22:18)
[2023-04-21 09:15] VITALS: BP 156/95; PULSE 80; RESP 16; TEMP 98.2
[2023-04-21] MEDS: PRENATAL VITAMINS W/ FOLIC ACID TABLET (FP) PO SCH (09:58)
[2023-04-21] MEDS ORDERED: methaDONE HCL 10 MG TABLET (FOR DETOX USE ONLY) PO ONE (10:00)
[2023-04-21] MEDS ORDERED: MELATONIN 5 MG TABLETS PO SCH (22:00)
== END 2023-04-21 11:39 | disposition home or self-care (01) | DRG 773 ==
LOC: YASAS 19:32 → Y3N 04-17 01:41
PROVIDERS: ADMIT Allergy & Immunology; ATTEND Surgery
PROC: HZ2ZZZZ Detoxification Services for Substance Abuse Treatment (ICD-10-PCS; principal; 2023-04-17)
DX: F11.23 Opioid dependence with withdrawal (principal); F15.20 Other stimulant dependence, uncomplicated; F12.20 Cannabis dependence, uncomplicated; F17.210 Nicotine dependence, cigarettes, uncomplicated; E78.5 Hyperlipidemia, unspecified; I10 Essential (primary) hypertension; M16.12 Unilateral primary osteoarthritis, left hip; R76.8 Other specified abnormal immunological findings in serum
CPT/HCPCS: 36415; 80053; 85027; 86593; 86780; 87635; 87811

== ENCOUNTER 2023-07-02 14:30 | Inpatient (IN) | payer OTHER ==
[2023-07-02 15:39] VITALS: BMI 22.5
[2023-07-02] MEDS ORDERED: cloNIDine HCL 0.1 MG TABLET PO PRN (16:52)
[2023-07-02] MEDS ORDERED: BENZONATATE 200 MG CAPSULE PO PRN (17:07)
[2023-07-02] MEDS ORDERED: NALOXONE HCL 0.4 MG/ML VIAL IM PRN (17:07)
[2023-07-02] MEDS ORDERED: MAGNESIUM HYDROX 2400MG/30ML ORAL SUSPENSION 30 ML CUP PO PRN (17:07)
[2023-07-02] MEDS ORDERED: BENZOCAINE/MENTHOL (CHLORASEPTIC ) LOZENGE MM PRN (17:07)
[2023-07-02] MEDS ORDERED: NALOXONE HCL (KLOXXADO) 8 MG SPRAY NS PRN (17:07)
[2023-07-02] MEDS ORDERED: IBUPROFEN 600 MG TABLET (FP) PO PRN (17:07)
[2023-07-02] MEDS ORDERED: MAG HYDROX/AL HYDROX/SIMETH 30 ML UNIT-DOSE CUP PO PRN (17:07)
[2023-07-02] MEDS ORDERED: BISMUTH SUBSALICYLATE 524 MG/30 ML PO PRN (17:07)
[2023-07-02] MEDS ORDERED: NICOTINE POLACRILEX 2 MG GUM BUC PRN (17:07)
[2023-07-02] MEDS ORDERED: LOPERAMIDE HCL 2 MG CAPSULE PO PRN (17:07)
[2023-07-02] MEDS ORDERED: POLYETHYLENE GLYCOL (HEALTHYLAX) 3350 17 GM PACKET PO PRN (17:07)
[2023-07-02] MEDS ORDERED: DICYCLOMINE HCL 10 MG CAPSULE PO PRN (17:07)
[2023-07-02] MEDS ORDERED: P-EPHED 60MG/TRIPROLIDI 2.5MG TABLET PO PRN (17:07)
[2023-07-02] MEDS ORDERED: IBUPROFEN 400 MG TABLET (FP) PO PRN (17:07)
[2023-07-02] MEDS ORDERED: guaiFENesin 600 MG TABLET.ER (FP) PO PRN (17:07)
[2023-07-02] MEDS ORDERED: ACETAMINOPHEN 325 MG TABLET (FP) PO PRN (17:07)
[2023-07-02] MEDS ORDERED: methaDONE HCL 10 MG TABLET (FOR DETOX USE ONLY) ONE (17:36)
[2023-07-02] MEDS: methaDONE HCL 10 MG TABLET (FOR DETOX USE ONLY) PO ONE (17:42)
[2023-07-02 18:19] VITALS: BP 119/74; PULSE 59; RESP 16; TEMP 97.7
[2023-07-02] MEDS ORDERED: THIAMINE HCL 100 MG TABLET (FP) PO SCH (22:00)
[2023-07-02] MEDS ORDERED: MELATONIN 5 MG TABLETS PO SCH (22:00)
[2023-07-03] MEDS ORDERED: PRENATAL VITAMINS W/ FOLIC ACID TABLET (FP) PO SCH (10:00)
[2023-07-04] MEDS ORDERED: methaDONE HCL 10 MG TABLET (FOR DETOX USE ONLY) PO ONE (10:00)
[2023-07-06] MEDS ORDERED: methaDONE HCL 10 MG TABLET (FOR DETOX USE ONLY) PO ONE (10:00)
== END 2023-07-02 18:30 | disposition left against medical advice (07) | DRG 770 ==
LOC: YASAS 14:30 → Y6N 17:33
PROVIDERS: ADMIT Allergy & Immunology; ATTEND Surgery
PROC: HZ2ZZZZ Detoxification Services for Substance Abuse Treatment (ICD-10-PCS; principal; 2023-07-02)
DX: F11.23 Opioid dependence with withdrawal (principal); F17.210 Nicotine dependence, cigarettes, uncomplicated
CPT/HCPCS: 87635

== ENCOUNTER 2023-07-22 21:12 | Inpatient (IN) | payer OTHER ==
[2023-07-22 21:49] VITALS: BMI 23.5
[2023-07-23] MEDS ORDERED: BISMUTH SUBSALICYLATE 524 MG/30 ML PO PRN (00:53)
[2023-07-23] MEDS ORDERED: BENZOCAINE/MENTHOL (CHLORASEPTIC ) LOZENGE MM PRN (00:53)
[2023-07-23] MEDS ORDERED: BENZONATATE 200 MG CAPSULE PO PRN (00:53)
[2023-07-23] MEDS ORDERED: NICOTINE POLACRILEX 2 MG LOZENGE BC PRN (00:53)
[2023-07-23] MEDS ORDERED: LOPERAMIDE HCL 2 MG CAPSULE PO PRN (00:53)
[2023-07-23] MEDS ORDERED: ONDANSETRON *ODT* 4 MG TABLET SL PRN (00:53)
[2023-07-23] MEDS ORDERED: MAG HYDROX/AL HYDROX/SIMETH 30 ML UNIT-DOSE CUP PO PRN (00:53)
[2023-07-23] MEDS ORDERED: MAGNESIUM HYDROX 2400MG/30ML ORAL SUSPENSION 30 ML CUP PO PRN (00:53)
[2023-07-23] MEDS ORDERED: IBUPROFEN 400 MG TABLET (FP) PO PRN (00:53)
[2023-07-23] MEDS ORDERED: guaiFENesin 600 MG TABLET.ER (FP) PO PRN (00:53)
[2023-07-23] MEDS ORDERED: ACETAMINOPHEN 325 MG TABLET (FP) PO PRN (00:53)
[2023-07-23] MEDS ORDERED: IBUPROFEN 600 MG TABLET (FP) PO PRN (00:53)
[2023-07-23] MEDS ORDERED: NALOXONE HCL 0.4 MG/ML VIAL IM PRN (00:53)
[2023-07-23] MEDS ORDERED: DICYCLOMINE HCL 10 MG CAPSULE PO PRN (00:53)
[2023-07-23] MEDS ORDERED: POLYETHYLENE GLYCOL (HEALTHYLAX) 3350 17 GM PACKET PO PRN (00:53)
[2023-07-23] MEDS ORDERED: NALOXONE HCL (KLOXXADO) 8 MG SPRAY NS PRN (00:53)
[2023-07-23] MEDS: PRENATAL VITAMINS W/ FOLIC ACID TABLET (FP) PO SCH (10:14)
[2023-07-23] MEDS: NICOTINE 14 MG/24 HOURS TOPICAL PATCH TD SCH (10:14)
[2023-07-23] MEDS: methaDONE HCL 10 MG TABLET (FOR DETOX USE ONLY) PO ONE (10:14)
[2023-07-23] MEDS: THIAMINE HCL 100 MG TABLET (FP) PO SCH (22:54)
[2023-07-24] MEDS: cloNIDine HCL 0.1 MG TABLET PO PRN (02:53)
[2023-07-25] MEDS: MELATONIN 5 MG TABLETS PO SCH (00:12)
[2023-07-25] MEDS: methaDONE HCL 10 MG TABLET (FOR DETOX USE ONLY) PO ONE (10:03)
[2023-07-25 12:15] LABS: HEMATOCRIT 41.2 % (35.4-49); HEMOGLOBIN 14.4 GM/dL (11.7-16.9); MCH 29.3 pg (25.7-33.7); MEAN CELL VOLUME 83.6 fl (80-96); PLATELET COUNT 267 10^3/uL (134-434); RBC 4.92 M/mm3 (4.00-5.60); RDW 15.8 % (11.9-15.9)
[2023-07-25 12:47] LABS: POTASSIUM 4.1 mmol/L (3.5-5.1)
[2023-07-25 12:54] LABS: CREATININE 0.6 mg/dL (0.55-1.3)
[2023-07-25 12:56] LABS: BILIRUBIN,TOTAL 0.5 mg/dL (0.2-1); TOT PROT 7.3 g/dl (6.4-8.2)
[2023-07-25 12:59] LABS: ALBUMIN 3.5 g/dl (3.4-5.0); BLOOD UREA NITROGEN 13.7 mg/dL (7-18); CALCIUM 9.1 mg/dL (8.5-10.1)
[2023-07-25] MEDS: METHOCARBAMOL 500 MG TABLET PO PRN (22:22)
[2023-07-26] MEDS ORDERED: methaDONE HCL 10 MG TABLET (FOR DETOX USE ONLY) ONE (09:10)
[2023-07-26] MEDS: PENICILLIN G BENZATHINE 2,400,000 UNIT/4 ML PFS IM ONE (12:35)
[2023-07-27] MEDS: methaDONE HCL 10 MG TABLET (FOR DETOX USE ONLY) PO ONE (09:28)
[2023-07-27 09:32] VITALS: BP 155/86; PULSE 74; RESP 17; TEMP 98.2
== END 2023-07-27 09:30 | disposition home or self-care (01) | DRG 773 ==
LOC: YASAS 21:12 → Y3N 07-23 03:39
PROVIDERS: ADMIT Allergy & Immunology; ATTEND Family Medicine Addiction Medicine
PROC: HZ2ZZZZ Detoxification Services for Substance Abuse Treatment (ICD-10-PCS; principal; 2023-07-23)
DX: F11.23 Opioid dependence with withdrawal (principal); F12.20 Cannabis dependence, uncomplicated; F17.210 Nicotine dependence, cigarettes, uncomplicated; E78.5 Hyperlipidemia, unspecified; I10 Essential (primary) hypertension; M16.12 Unilateral primary osteoarthritis, left hip; R76.8 Other specified abnormal immunological findings in serum; Z86.19 Personal history of other infectious and parasitic diseases
CPT/HCPCS: 36415; 80053; 80305; 85027; 86593; 86780; 87635

== ENCOUNTER 2023-08-05 12:28 | Inpatient (IN) | payer OTHER ==
[2023-08-05 13:15] VITALS: BMI 22.7
[2023-08-05] MEDS ORDERED: BENZOCAINE/MENTHOL (CHLORASEPTIC ) LOZENGE MM PRN (13:37)
[2023-08-05] MEDS ORDERED: ACETAMINOPHEN 325 MG TABLET (FP) PO PRN (13:37)
[2023-08-05] MEDS ORDERED: P-EPHED 60MG/TRIPROLIDI 2.5MG TABLET PO PRN (13:37)
[2023-08-05] MEDS ORDERED: NICOTINE POLACRILEX 2 MG LOZENGE BC PRN (13:37)
[2023-08-05] MEDS ORDERED: POLYETHYLENE GLYCOL (HEALTHYLAX) 3350 17 GM PACKET PO PRN (13:37)
[2023-08-05] MEDS ORDERED: IBUPROFEN 400 MG TABLET (FP) PO PRN (13:37)
[2023-08-05] MEDS ORDERED: MAG HYDROX/AL HYDROX/SIMETH 30 ML UNIT-DOSE CUP PO PRN (13:37)
[2023-08-05] MEDS ORDERED: DICYCLOMINE HCL 10 MG CAPSULE PO PRN (13:37)
[2023-08-05] MEDS ORDERED: NALOXONE HCL (KLOXXADO) 8 MG SPRAY NS PRN (13:37)
[2023-08-05] MEDS ORDERED: MAGNESIUM HYDROX 2400MG/30ML ORAL SUSPENSION 30 ML CUP PO PRN (13:37)
[2023-08-05] MEDS ORDERED: NALOXONE HCL 0.4 MG/ML VIAL IM PRN (13:37)
[2023-08-05] MEDS ORDERED: LOPERAMIDE HCL 2 MG CAPSULE PO PRN (13:37)
[2023-08-05] MEDS ORDERED: NICOTINE POLACRILEX 2 MG GUM BUC PRN (13:37)
[2023-08-05] MEDS ORDERED: BISMUTH SUBSALICYLATE 524 MG/30 ML PO PRN (13:37)
[2023-08-05] MEDS ORDERED: BENZONATATE 200 MG CAPSULE PO PRN (13:37)
[2023-08-05] MEDS ORDERED: guaiFENesin 600 MG TABLET.ER (FP) PO PRN (13:37)
[2023-08-05] MEDS: methaDONE HCL 10 MG TABLET (FOR DETOX USE ONLY) PO ONE (14:38)
[2023-08-05] MEDS ORDERED: methaDONE HCL 10 MG TABLET (FOR DETOX USE ONLY) ONE (14:42)
[2023-08-05] MEDS: METHOCARBAMOL 500 MG TABLET PO PRN (14:46)
[2023-08-05] MEDS ORDERED: METHOCARBAMOL 500 MG TABLET ONE (14:49)
[2023-08-05] MEDS: IBUPROFEN 600 MG TABLET (FP) PO PRN (18:52)
[2023-08-05] MEDS: THIAMINE HCL 100 MG TABLET (FP) PO SCH (22:29)
[2023-08-05] MEDS: MELATONIN 5 MG TABLETS PO SCH (22:29)
[2023-08-06] MEDS: PRENATAL VITAMINS W/ FOLIC ACID TABLET (FP) PO SCH (09:34)
[2023-08-07] MEDS: methaDONE HCL 10 MG TABLET (FOR DETOX USE ONLY) PO ONE (09:56)
[2023-08-07 16:51] VITALS: RESP 17
[2023-08-07] MEDS: cloNIDine HCL 0.1 MG TABLET PO PRN (22:26)
[2023-08-08 06:56] VITALS: BP 126/69; PULSE 71; TEMP 97.7
== END 2023-08-08 10:58 | disposition home or self-care (01) | DRG 773 ==
LOC: YASAS 12:28 → Y6N 15:03
PROVIDERS: ADMIT Allergy & Immunology; ATTEND Surgery
PROC: HZ2ZZZZ Detoxification Services for Substance Abuse Treatment (ICD-10-PCS; principal; 2023-08-05)
DX: F11.23 Opioid dependence with withdrawal (principal); F12.10 Cannabis abuse, uncomplicated; F17.210 Nicotine dependence, cigarettes, uncomplicated; E78.5 Hyperlipidemia, unspecified; I10 Essential (primary) hypertension; M16.12 Unilateral primary osteoarthritis, left hip; Z86.19 Personal history of other infectious and parasitic diseases
CPT/HCPCS: 0241U-QW; 80305

== ENCOUNTER 2023-10-20 19:45 | Inpatient (IN) | payer OTHER ==
[2023-10-20 20:25] VITALS: BMI 23.5
[2023-10-20] MEDS ORDERED: ACETAMINOPHEN 325 MG TABLET (FP) PO PRN (20:37)
[2023-10-20] MEDS ORDERED: NICOTINE POLACRILEX 2 MG LOZENGE BC PRN (20:37)
[2023-10-20] MEDS ORDERED: MAG HYDROX/AL HYDROX/SIMETH 30 ML UNIT-DOSE CUP PO PRN (20:37)
[2023-10-20] MEDS ORDERED: BENZOCAINE/MENTHOL (CHLORASEPTIC ) LOZENGE MM PRN (20:37)
[2023-10-20] MEDS ORDERED: guaiFENesin 600 MG TABLET.ER (FP) PO PRN (20:37)
[2023-10-20] MEDS ORDERED: ONDANSETRON *ODT* 4 MG TABLET SL PRN (20:37)
[2023-10-20] MEDS ORDERED: MAGNESIUM HYDROX 2400MG/30ML ORAL SUSPENSION 30 ML CUP PO PRN (20:37)
[2023-10-20] MEDS ORDERED: P-EPHED 60MG/TRIPROLIDI 2.5MG TABLET PO PRN (20:37)
[2023-10-20] MEDS ORDERED: BENZONATATE 200 MG CAPSULE PO PRN (20:37)
[2023-10-20] MEDS ORDERED: LOPERAMIDE HCL 2 MG CAPSULE PO PRN (20:37)
[2023-10-20] MEDS ORDERED: POLYETHYLENE GLYCOL (HEALTHYLAX) 3350 17 GM PACKET PO PRN (20:37)
[2023-10-20] MEDS ORDERED: IBUPROFEN 400 MG TABLET (FP) PO PRN (20:37)
[2023-10-20] MEDS ORDERED: NALOXONE HCL (KLOXXADO) 8 MG SPRAY NS PRN (20:37)
[2023-10-20] MEDS ORDERED: DICYCLOMINE HCL 10 MG CAPSULE PO PRN (20:37)
[2023-10-20] MEDS ORDERED: DOCUSATE SODIUM 100 MG CAPSULE (FP) PO PRN (20:37)
[2023-10-20] MEDS ORDERED: NALOXONE HCL 0.4 MG/ML VIAL IM PRN (20:37)
[2023-10-20] MEDS ORDERED: BISACODYL 5 MG TABLET.DR (FP) PO PRN (20:37)
[2023-10-20] MEDS ORDERED: NICOTINE POLACRILEX 2 MG GUM BUC PRN (20:37)
[2023-10-20] MEDS ORDERED: BISMUTH SUBSALICYLATE 524 MG/30 ML PO PRN (20:37)
[2023-10-20] MEDS: MELATONIN 5 MG TABLETS PO SCH (22:37)
[2023-10-20] MEDS: METHOCARBAMOL 500 MG TABLET PO PRN (22:37)
[2023-10-20] MEDS: THIAMINE 100 MG TABLET PO SCH (22:37)
[2023-10-21] MEDS: cloNIDine HCL 0.1 MG TABLET PO PRN (00:39)
[2023-10-21] MEDS: IBUPROFEN 600 MG TABLET (FP) PO PRN (00:39)
[2023-10-21] MEDS: PRENATAL VITAMINS W/ FOLIC ACID TABLET (FP) PO SCH (09:48)
[2023-10-21] MEDS: methaDONE HCL 10 MG TABLET (FOR DETOX USE ONLY) PO ONE (09:50)
[2023-10-21 12:06] LABS: HEMATOCRIT 36.2 % (35.4-49); HEMOGLOBIN 12.1 GM/dL (11.7-16.9); MCH 28.9 pg (25.7-33.7); MCHC 33.6 g/dl (32.0-35.9); MEAN CELL VOLUME 86.1 fl (80-96); MEAN PLT VOLUME 7.8 fl (7.5-11.1); PLATELET COUNT 297 10^3/uL (134-434)
[2023-10-21 12:11] LABS: POTASSIUM 3.8 mmol/L (3.5-5.1)
[2023-10-21 12:19] LABS: ALBUMIN 3.4 g/dl (3.4-5.0); BLOOD UREA NITROGEN 20.9 mg/dL (7-18); CALCIUM 8.9 mg/dL (8.5-10.1)
[2023-10-21 12:22] LABS: CREATININE 0.8 mg/dL (0.55-1.3)
[2023-10-21 12:24] LABS: BILIRUBIN,TOTAL 0.4 mg/dL (0.2-1); TOT PROT 6.6 g/dl (6.4-8.2)
[2023-10-21 12:47] VITALS: BP 107/54; PULSE 58; RESP 16; TEMP 98.1
[2023-10-22] MEDS ORDERED: methaDONE HCL 10 MG TABLET (FOR DETOX USE ONLY) PO ONE (10:00)
[2023-10-22] MEDS ORDERED: LIDOCAINE 5% TOPICAL PATCH TP SCH (10:00)
[2023-10-22] MEDS ORDERED: LIDOCAINE PATCH REMOVAL MC SCH (22:00)
[2023-10-23] MEDS ORDERED: methaDONE HCL 10 MG TABLET (FOR DETOX USE ONLY) PO ONE (10:00)
[2023-10-24] MEDS ORDERED: methaDONE HCL 10 MG TABLET (FOR DETOX USE ONLY) PO ONE (06:00)
== END 2023-10-21 16:01 | disposition left against medical advice (07) | DRG 770 ==
LOC: YASAS 19:45 → Y6N 20:48
PROVIDERS: ADMIT Allergy & Immunology; ATTEND Surgery
PROC: HZ2ZZZZ Detoxification Services for Substance Abuse Treatment (ICD-10-PCS; principal; 2023-10-20)
DX: F11.23 Opioid dependence with withdrawal (principal); F12.20 Cannabis dependence, uncomplicated; F17.210 Nicotine dependence, cigarettes, uncomplicated; E78.5 Hyperlipidemia, unspecified; Z86.19 Personal history of other infectious and parasitic diseases; Z99.89 Dependence on other enabling machines and devices
CPT/HCPCS: 36415; 80053; 80305; 85027; 86593; 86780

== ENCOUNTER 2023-12-21 15:41 | Inpatient (IN) | payer OTHER ==
[2023-12-21 16:43] VITALS: BMI 21.6
[2023-12-21] MEDS ORDERED: cloNIDine HCL 0.1 MG TABLET PO PRN (17:00)
[2023-12-21] MEDS ORDERED: NICOTINE POLACRILEX 2 MG GUM BUC PRN (17:01)
[2023-12-21] MEDS ORDERED: POLYETHYLENE GLYCOL (HEALTHYLAX) 3350 17 GM PACKET PO PRN (17:01)
[2023-12-21] MEDS ORDERED: DICYCLOMINE HCL 10 MG CAPSULE PO PRN (17:01)
[2023-12-21] MEDS ORDERED: NALOXONE HCL 0.4 MG/ML VIAL IM PRN (17:01)
[2023-12-21] MEDS ORDERED: ACETAMINOPHEN 325 MG TABLET (FP) PO PRN (17:01)
[2023-12-21] MEDS ORDERED: BISMUTH SUBSALICYLATE 524 MG/30 ML PO PRN (17:01)
[2023-12-21] MEDS ORDERED: guaiFENesin 600 MG TABLET.ER (FP) PO PRN (17:01)
[2023-12-21] MEDS ORDERED: NICOTINE POLACRILEX 2 MG LOZENGE BC PRN (17:01)
[2023-12-21] MEDS ORDERED: BENZONATATE 200 MG CAPSULE PO PRN (17:01)
[2023-12-21] MEDS ORDERED: P-EPHED 60MG/TRIPROLIDI 2.5MG TABLET PO PRN (17:01)
[2023-12-21] MEDS ORDERED: ONDANSETRON *ODT* 4 MG TABLET SL PRN (17:01)
[2023-12-21] MEDS ORDERED: IBUPROFEN 400 MG TABLET (FP) PO PRN (17:01)
[2023-12-21] MEDS ORDERED: NALOXONE (NARCAN) HCL 4 MG/0.1 ML SPRAY NS PRN (17:01)
[2023-12-21] MEDS ORDERED: MAGNESIUM HYDROX 2400MG/30ML ORAL SUSPENSION 30 ML CUP PO PRN (17:01)
[2023-12-21] MEDS ORDERED: MAG HYDROX/AL HYDROX/SIMETH 30 ML UNIT-DOSE CUP PO PRN (17:01)
[2023-12-21] MEDS ORDERED: BENZOCAINE/MENTHOL (CHLORASEPTIC ) LOZENGE MM PRN (17:01)
[2023-12-21] MEDS ORDERED: LOPERAMIDE HCL 2 MG CAPSULE PO PRN (17:01)
[2023-12-21] MEDS ORDERED: ACETAMINOPHEN 500 MG TABLET (FP) PO PRN (17:02)
[2023-12-21] MEDS: methaDONE HCL 10 MG TABLET (FOR DETOX USE ONLY) PO ONE (17:57)
[2023-12-21] MEDS: THIAMINE 100 MG TABLET PO SCH (21:04)
[2023-12-21] MEDS: METHOCARBAMOL 500 MG TABLET PO PRN (21:04)
[2023-12-21] MEDS: IBUPROFEN 600 MG TABLET (FP) PO PRN (21:04)
[2023-12-21] MEDS: MELATONIN 5 MG TABLETS PO SCH (21:04)
[2023-12-22] MEDS: PRENATAL VITAMINS W/ FOLIC ACID TABLET (FP) PO SCH (09:33)
[2023-12-22 11:48] LABS: POTASSIUM 4.3 mmol/L (3.5-5.1)
[2023-12-22 11:51] LABS: ALBUMIN 3.2 g/dl (3.4-5.0); CALCIUM 8.8 mg/dL (8.5-10.1); HEMATOCRIT 35.6 % (35.4-49); HEMOGLOBIN 11.8 GM/dL (11.7-16.9); MCH 28.8 pg (25.7-33.7); MCHC 33.3 g/dl (32.0-35.9); MEAN CELL VOLUME 86.6 fl (80-96); PLATELET COUNT 259 10^3/uL (134-434); RBC 4.11 M/mm3 (4.00-5.60); RDW 15.5 % (11.9-15.9)
[2023-12-22 11:52] LABS: BLOOD UREA NITROGEN 22.4 mg/dL (7-18)
[2023-12-22 11:55] LABS: CREATININE 0.7 mg/dL (0.55-1.3)
[2023-12-22 11:56] LABS: BILIRUBIN,TOTAL 0.5 mg/dL (0.2-1)
[2023-12-22 11:57] LABS: TOT PROT 6.3 g/dl (6.4-8.2)
[2023-12-23] MEDS: methaDONE HCL 10 MG TABLET (FOR DETOX USE ONLY) PO ONE (09:23)
[2023-12-23 12:50] VITALS: BP 124/65; PULSE 56; RESP 17; TEMP 97.8
== END 2023-12-23 15:43 | disposition home or self-care (01) | DRG 773 ==
LOC: YASAS 15:41 → Y6N 17:16
PROVIDERS: ADMIT Allergy & Immunology; ATTEND Surgery
PROC: HZ2ZZZZ Detoxification Services for Substance Abuse Treatment (ICD-10-PCS; principal; 2023-12-21)
DX: F11.23 Opioid dependence with withdrawal (principal); F12.20 Cannabis dependence, uncomplicated; F17.213 Nicotine dependence, cigarettes, with withdrawal; R26.2 Difficulty in walking, not elsewhere classified; Z99.89 Dependence on other enabling machines and devices; Z86.19 Personal history of other infectious and parasitic diseases
CPT/HCPCS: 36415; 80053; 80305; 80307; 85027; 86593; 86780

== ENCOUNTER 2024-04-27 18:45 | Inpatient (IN) | payer OTHER ==
[2024-04-27 19:13] VITALS: BMI 23.1
[2024-04-27] MEDS ORDERED: ACETAMINOPHEN 325 MG TABLET (FP) PO PRN (19:23)
[2024-04-27] MEDS ORDERED: MAG HYDROX/AL HYDROX/SIMETH 30 ML UNIT-DOSE CUP PO PRN (19:24)
[2024-04-27] MEDS ORDERED: NICOTINE POLACRILEX 2 MG GUM BUC PRN (19:24)
[2024-04-27] MEDS ORDERED: ONDANSETRON *ODT* 4 MG TABLET SL PRN (19:24)
[2024-04-27] MEDS ORDERED: BENZONATATE 200 MG CAPSULE PO PRN (19:24)
[2024-04-27] MEDS ORDERED: DICYCLOMINE HCL 10 MG CAPSULE PO PRN (19:24)
[2024-04-27] MEDS ORDERED: BENZOCAINE/MENTHOL (CHLORASEPTIC ) LOZENGE MM PRN (19:24)
[2024-04-27] MEDS ORDERED: NALOXONE (NARCAN) HCL 4 MG/0.1 ML SPRAY NS PRN (19:24)
[2024-04-27] MEDS ORDERED: POLYETHYLENE GLYCOL (HEALTHYLAX) 3350 17 GM PACKET PO PRN (19:24)
[2024-04-27] MEDS ORDERED: MAGNESIUM HYDROX 2400MG/30ML ORAL SUSPENSION 30 ML CUP PO PRN (19:24)
[2024-04-27] MEDS ORDERED: NICOTINE POLACRILEX 2 MG LOZENGE BC PRN (19:24)
[2024-04-27] MEDS ORDERED: BISMUTH SUBSALICYLATE 524 MG/30 ML PO PRN (19:24)
[2024-04-27] MEDS ORDERED: guaiFENesin 600 MG TABLET.ER (FP) PO PRN (19:24)
[2024-04-27] MEDS ORDERED: LOPERAMIDE HCL 2 MG CAPSULE PO PRN (19:24)
[2024-04-27] MEDS ORDERED: P-EPHED 60MG/TRIPROLIDI 2.5MG TABLET PO PRN (19:24)
[2024-04-27] MEDS: METHOCARBAMOL 500 MG TABLET PO PRN (21:11)
[2024-04-27] MEDS: THIAMINE 100 MG TABLET PO SCH (21:11)
[2024-04-27] MEDS: hydrOXYzine PAMOATE 25 MG CAPSULE (FP) PO PRN (21:11)
[2024-04-27] MEDS: MELATONIN 5 MG TABLETS PO SCH (21:11)
[2024-04-27] MEDS: IBUPROFEN 600 MG TABLET (FP) PO PRN (21:12)
[2024-04-28] MEDS: PRENATAL VITAMINS W/ FOLIC ACID TABLET (FP) PO SCH (10:32)
[2024-04-28 11:11] LABS: HEMATOCRIT 36.2 % (35.4-49); HEMOGLOBIN 12.2 GM/dL (11.7-16.9); MCH 29.7 pg (25.7-33.7); MCHC 33.7 g/dl (32.0-35.9); MEAN CELL VOLUME 88.2 fl (80-96); MEAN PLT VOLUME 8.1 fl (7.5-11.1); PLATELET COUNT 230 10^3/uL (134-434); RBC 4.11 M/mm3 (4.00-5.60); RDW 15.7 % (11.9-15.9); WHITE BLOOD COUNT 7.5 K/mm3 (4.0-10.0)
[2024-04-28 11:13] LABS: CHLORIDE 112 mmol/L (98-107); POTASSIUM 4.2 mmol/L (3.5-5.1); SODIUM 142 mmol/L (136-145)
[2024-04-28 11:20] LABS: ALBUMIN 3.2 g/dl (3.4-5.0); ANION GAP 4 mmol/L (4-13); BLOOD UREA NITROGEN 17.5 mg/dL (7-18); CALCIUM 8.4 mg/dL (8.5-10.1); CO2 26 mmol/L (21-32)
[2024-04-28 11:21] LABS: GLUCOSE,RANDOM 80 mg/dL (74-106)
[2024-04-28 11:23] LABS: CREATININE 0.7 mg/dL (0.55-1.3); SGOT/AST 25 U/L (15-37)
[2024-04-28 11:24] LABS: BILIRUBIN,TOTAL 0.2 mg/dL (0.2-1)
[2024-04-28 11:25] LABS: SGPT/ALT 23 U/L (13-61)
[2024-04-28 11:26] LABS: ALK PHOS 54 U/L (45-117)
[2024-04-28] MEDS: NALOXONE (NYS OPIOID OVERDOSE PROGRAM) 4 MG/0.1 ML SPRAY NS SCH (15:48)
[2024-04-28] MEDS: cloNIDine HCL 0.1 MG TABLET PO PRN (23:42)
[2024-04-29 09:26] VITALS: BP 125/75; PULSE 62; RESP 16; TEMP 97.8
[2024-04-29] MEDS: IBUPROFEN 400 MG TABLET (FP) PO PRN (10:26)
== END 2024-04-29 11:13 | disposition other institution (70) | DRG 773 ==
LOC: YASAS 18:45 → Y6N 19:37
PROVIDERS: ADMIT Surgery; ATTEND Allergy & Immunology
PROC: HZ2ZZZZ Detoxification Services for Substance Abuse Treatment (ICD-10-PCS; principal; 2024-04-27)
DX: F11.20 Opioid dependence, uncomplicated (principal); F12.20 Cannabis dependence, uncomplicated; F17.210 Nicotine dependence, cigarettes, uncomplicated; Z86.19 Personal history of other infectious and parasitic diseases; Z99.89 Dependence on other enabling machines and devices
CPT/HCPCS: 36415; 80053; 80305; 80307; 85027

== ENCOUNTER 2024-07-18 18:35 | Inpatient (IN) | payer OTHER ==
[2024-07-18 19:04] VITALS: BMI 23.5
[2024-07-18] MEDS ORDERED: MAG HYDROX/AL HYDROX/SIMETH 30 ML UNIT-DOSE CUP PO PRN (19:30)
[2024-07-18] MEDS ORDERED: NALOXONE (NARCAN) HCL 4 MG/0.1 ML SPRAY NS PRN (19:30)
[2024-07-18] MEDS ORDERED: guaiFENesin 600 MG TABLET.ER (FP) PO PRN (19:30)
[2024-07-18] MEDS ORDERED: IBUPROFEN 400 MG TABLET (FP) PO PRN (19:30)
[2024-07-18] MEDS ORDERED: LOPERAMIDE HCL 2 MG CAPSULE PO PRN (19:30)
[2024-07-18] MEDS ORDERED: NICOTINE POLACRILEX 2 MG LOZENGE BC PRN (19:30)
[2024-07-18] MEDS ORDERED: POLYETHYLENE GLYCOL (HEALTHYLAX) 3350 17 GM PACKET PO PRN (19:30)
[2024-07-18] MEDS ORDERED: BENZOCAINE/MENTHOL (CHLORASEPTIC ) LOZENGE MM PRN (19:30)
[2024-07-18] MEDS ORDERED: MAGNESIUM HYDROX 2400MG/30ML ORAL SUSPENSION 30 ML CUP PO PRN (19:30)
[2024-07-18] MEDS ORDERED: NICOTINE POLACRILEX 2 MG GUM BUC PRN (19:30)
[2024-07-18] MEDS ORDERED: BENZONATATE 200 MG CAPSULE PO PRN (19:30)
[2024-07-18] MEDS ORDERED: P-EPHED 60MG/TRIPROLIDI 2.5MG TABLET PO PRN (19:30)
[2024-07-18] MEDS: hydrOXYzine PAMOATE 25 MG CAPSULE (FP) PO PRN (22:20)
[2024-07-18] MEDS: THIAMINE 100 MG TABLET PO SCH (22:20)
[2024-07-18] MEDS: MELATONIN 5 MG TABLETS PO ONE (22:21)
[2024-07-18] MEDS: MELATONIN 5 MG TABLETS PO SCH (22:21)
[2024-07-18] MEDS: IBUPROFEN 600 MG TABLET (FP) PO PRN (22:22)
[2024-07-19 09:27] LABS: HEMATOCRIT 41.6 % (35.4-49); HEMOGLOBIN 13.6 GM/dL (11.7-16.9); MCH 29.3 pg (25.7-33.7); MCHC 32.6 g/dl (32.0-35.9); MEAN CELL VOLUME 89.8 fl (80-96); MEAN PLT VOLUME 7.7 fl (7.5-11.1); PLATELET COUNT 395 10^3/uL (134-434); RBC 4.63 M/mm3 (4.00-5.60); RDW 15.1 % (11.9-15.9); WHITE BLOOD COUNT 9.4 K/mm3 (4.0-10.0)
[2024-07-19 09:46] LABS: CHLORIDE 105 mmol/L (98-107); POTASSIUM 4.7 mmol/L (3.5-5.1); SODIUM 139 mmol/L (136-145)
[2024-07-19 10:00] LABS: ALBUMIN 3.6 g/dl (3.4-5.0); ANION GAP 8 mmol/L (4-13); BLOOD UREA NITROGEN 23.5 mg/dL (7-18); CO2 26 mmol/L (21-32)
[2024-07-19 10:01] LABS: GLUCOSE,RANDOM 106 mg/dL (74-106)
[2024-07-19 10:02] LABS: SGPT/ALT 42 U/L (13-61)
[2024-07-19 10:04] LABS: CREATININE 0.9 mg/dL (0.55-1.3); SGOT/AST 27 U/L (15-37)
[2024-07-19 10:05] LABS: BILIRUBIN,TOTAL 0.4 mg/dL (0.2-1); TOT PROT 7.2 g/dl (6.4-8.2)
[2024-07-19 10:06] LABS: ALK PHOS 80 U/L (45-117)
[2024-07-19] MEDS: PRENATAL VITAMINS W/ FOLIC ACID TABLET (FP) PO SCH (10:39)
[2024-07-19] MEDS: MELATONIN 5 MG TABLETS PO SCH (21:15)
[2024-07-20] MEDS: PNEUMOC 20-VAL CONJ-DIP CRM/PF 0.5 ML SYRINGE IM ONE (12:28)
[2024-07-20 12:40] LABS: PH,URINE 5.5 (5.0-8.0); URINE APPEARANCE CLEAR; URINE BILIRUBIN NEGATIVE (NEGATIVE); URINE COLOR YELLOW; URINE GLUCOSE (UA) NEGATIVE (NEGATIVE); URINE KETONE NEGATIVE (NEGATIVE); URINE LEUK ESTERASE NEGATIVE (NEGATIVE); URINE NITRITE NEGATIVE (NEGATIVE); URINE PROTEIN NEGATIVE (NEGATIVE); URINE UROBILINOGEN 0.2 mg/dL (0.2-1.0)
[2024-07-21] MEDS: BACLOFEN 10 MG TABLET (FP) PO SCH (13:19)
[2024-07-21] MEDS: NAPROXEN 500 MG TABLET PO SCH (13:20)
[2024-07-21] MEDS: ACETAMINOPHEN 325 MG TABLET (FP) PO PRN (19:02)
[2024-07-23] MEDS: hydrOXYzine PAMOATE 25 MG CAPSULE (FP) PO ONE (03:59)
[2024-07-23 06:53] VITALS: BP 125/68; PULSE 60; RESP 16; TEMP 98
[2024-07-23] MEDS: TOLNAFTATE 1% CREAM 15 GM TUBE TP SCH (10:40)
== END 2024-07-23 13:18 | disposition left against medical advice (07) | DRG 770 ==
LOC: YASAS 18:35 → Y5N 21:10
PROVIDERS: ADMIT Psychiatry & Neurology Pain Medicine; ATTEND Psychiatry & Neurology Pain Medicine
PROC: HZ42ZZZ Group Counseling for Substance Abuse Treatment, Cognitive-Behavioral (ICD-10-PCS; principal; 2024-07-18)
DX: F10.20 Alcohol dependence, uncomplicated (principal); F12.20 Cannabis dependence, uncomplicated; F17.210 Nicotine dependence, cigarettes, uncomplicated; F19.282 Other psychoactive substance dependence with psychoactive substance-induced sleep disorder; F19.24 Other psychoactive substance dependence with psychoactive substance-induced mood disorder; G47.00 Insomnia, unspecified; E78.5 Hyperlipidemia, unspecified; I10 Essential (primary) hypertension; B35.3 Tinea pedis; M16.12 Unilateral primary osteoarthritis, left hip; Z99.89 Dependence on other enabling machines and devices
CPT/HCPCS: 36415; 80053; 80305; 80307; 81003; 85027; 86593; 86780; 87811; 90677; 93005; 93010; J0475